=== PATIENT | male | born 1980 | race Caucasian/White ===

== ENCOUNTER 2017-11-08 17:25 | Emergency (ER) | payer SELFPAY ==
[2017-11-08] MEDS ORDERED: NA CHLORIDE 0.9% 1,000 ML ONE (17:38)
[2017-11-08] MEDS ORDERED: ONDANSETRON 4 MG/2 ML VIAL ONE (17:39)
[2017-11-08] MEDS ORDERED: PHENYTOIN Inj 1,000 MG in NA CHLORIDE 0.9% 100 ML IV STA (17:41)
[2017-11-08] MEDS ORDERED: levETIRAcetam 1,000 MG in NA CHLORIDE 0.9% 100 ML IV ONE (17:45)
[2017-11-08 17:55] LABS: Absolute Lymphocytes (CBC) 1.9 K/uL (0.7-4.9); Absolute Monocytes 0.7 K/uL (0.1-1.3); Absolute Neutrophil 11.7 K/uL (1.8-8.0); Basophils % 0.7 % (0-1.3); Eosinophils % 0.2 % (0-4.4); Lymphocytes % 13.2 % (15.3-44.8); MCH 28.3 pg (27.0-35.0); MCV 84.3 fL (80-100); MPV 7.6 fL (7.6-11.3); Monocytes % 4.9 % (3.3-12.3); RBC Red Blood Cell Count 4.98 M/uL (4.33-5.43)
--- NOTE | 2017-11-08 17:56 | RAD REPORT ---
EXAM DESCRIPTION: CT - Head Brain Wo Cont - 11/08/2017 5:47 pm CLINICAL HISTORY: Seizure COMPARISON: None. TECHNIQUE: All CT scans are performed using dose optimization technique as appropriate and may inclu de automated exposure control or mA/KV adjustment according to patient size. FINDINGS: No intracranial hemorrhage, hydrocephalus or extra-axial fluid collection.No areas of brai n edema or evidence of midline shift. The paranasal sinuses and mastoids are clear. The calvarium is intact. IMPRESSION: No acute intracranial abnormality.
[2017-11-08 18:09] LABS: Bicarbonate 23 mEq/L (21-31); Glucose Level 116 mg/dL (65-120); Potassium 3.4 mEq/L (3.6-5.0); Sodium Level 138 mEq/L (135-145)
[2017-11-08 18:10] LABS: BUN Blood Urea Nitrogen 11 mg/dL (6-20); Glomerular Filtration Rate > 90 mL/min (=/>90)
[2017-11-08] MEDS ORDERED: LORazepam 2 MG/ML VIAL ONE (18:27)
[2017-11-08] MEDS ORDERED: POTASSIUM CL SA 10 MEQ TAB PO ONE (19:37)
--- NOTE | 2017-11-08 19:40 | EDPHYS ---
Physician Documentation [facility] Name: Yonatan Ramos Age: 37 yrs Sex: Male : 1980 Arrival Date: 11/08/2017 Time: 17:30 Bed 3 Private MD: ED Physician Hemal Montgomery HPI: 11/08 17:43 This 37 yrs old Male presents to ER via Unassigned with complaints of Seizure.rn 17:43 The patient presents with a history of multiple seizures, a total of 2. Seizure onset: rn today. Associated injury: Head/face:. The patient has experienced similar episodes in the past. Reports hx of epilepsy, per patient, has seizures several times/week, was in longterm for about an hour, cellmate noticed he fell and had a seizure, reports left head pain from fall, generalized seizure, + nausea, had another brief seizure upon arrival to ER. Patient states gets paid on Tuesday, has been out of his dilantin and keppra for about a week. . Historical: - Allergies: 17:49 No Known Allergies; sv - Home Meds: 17:49 Dilantin Oral 300 mg twice a day [Active]; sv - PMHx: 17:49 Seizures; sv - Immunization history:: Adult Immunizations unknown. - Family history:: not pertinent. - Social history:: Smoking status: unknown. - Hospitalizations: : No recent hospitalization is reported. ROS: 17:43 Constitutional: Negative for fever, chills, and weight loss, Eyes: Negative for injury, rn pain, redness, and discharge, Neck: Negative for injury, pain, and swelling, Cardiovascular: Negative for chest pain, palpitations, and edema, Respiratory: Negative for shortness of breath, cough, wheezing, and pleuritic chest pain, Abdomen/GI: Negative for abdominal pain, diarrhea, and constipation, Back: Negative for injury and pain, MS/Extremity: Negative for injury and deformity, Skin: Negative for injury, rash, and discoloration, Neuro: Negative for weakness, numbness, tingling Exam: 17:43 Constitutional: This is a well developed, well nourished patient who is awake, alert, rn and in no acute distress. Head/Face: Normocephalic, mild tenderness left temporo-parietal region, no depression or laceration Eyes: Pupils equal round and reactive to light, extra-ocular motions intact. Lids and lashes normal. Conjunctiva and sclera are non-icteric and not injected. Cornea within normal limits. Periorbital areas with no swelling, redness, or edema. Neck: Trachea midline, no thyromegaly or masses palpated, and no cervical lymphadenopathy. Supple, full range of motion without nuchal rigidity, or vertebral point tenderness. No Meningismus. Cardiovascular: Regular rate and rhythm with a normal S1 and S2. No gallops, murmurs, or rubs. Normal PMI, no JVD. No pulse deficits. Respiratory: Lungs have equal breath sounds bilaterally, clear to auscultation and percussion. No rales, rhonchi or wheezes noted. No increased work of breathing, no retractions or nasal flaring. Abdomen/GI: Soft, non-tender, with normal bowel sounds. No distension or tympany. No guarding or rebound. No evidence of tenderness throughout. MS/ Extremity: Pulses equal, no cyanosis. Neurovascular intact. Full, normal range of motion. Equal circumference. Neuro: Awake and alert, GCS 15, oriented to person, place, time, and situation. Cranial nerves II-XII grossly intact. Motor strength 5/5 in all extremities. Sensory grossly intact. Cerebellar exam normal. Vital Signs: 17:48 BP 130 / 89; Pulse 102; Resp 22; Temp 98.7(O); Pulse Ox 96% on R/A; sv 18:10 BP 119 / 77; Pulse 93; Resp 18; Pulse Ox 97% ; sv 19:45 BP 116 / 81; Pulse 93; Resp 17 S; Pulse Ox 100% on R/A; jd3 [place] Coma Score: 18:11 Eye Response: spontaneous(4). Verbal Response: oriented(5). Motor Response: obeys sv commands(6). Total: 15. MDM: 17:31 Patient medically screened. rn 18:31 Differential diagnosis: seizure. Data reviewed: vital signs, nurses notes. ED course: rn Pt with normal ct head, had an episode here of contractions, did not respond to painful stimuli but blinked to ocular confrontation. . ED course: Dilantin has not finished, keppra has not been started, will observe and anticipate dc as patient with frequent seizures and admits to not taking meds. . 11/08 17:32 Order name: CBC with Diff rn 11/08 17:32 Order name: Basic Metabolic Panel rn 11/08 17:32 Order name: CT Head Brain wo Cont; Complete Time: 18:06 rn 11/08 17:33 Order name: CBC with Automated Diff; Complete Time: 18:06 EDMS 11/08 17:33 Order name: Basic Metabolic Panel; Complete Time: 18:16 EDMS 11/08 17:32 Order name: IV Start; Complete Time: 17:36 rn 11/08 17:43 Order name: EKG; Complete Time: 17:44 rn 11/08 17:32 Order name: Glucose Level; Complete Time: 17:44 rn 11/08 17:43 Order name: EKG - Nurse/Tech; Complete Time: 17:53 rn Administered Medications: 17:25 Drug: Ativan 2 mg Route: IVP; Site: right antecubital; sv 17:45 Follow up: Response: No adverse reaction sv 17:40 Drug: Zofran 4 mg Route: IVP; Site: right antecubital; sv 17:53 Follow up: Response: No adverse reaction; Marked relief of symptoms; Nausea is decreasedsv 17:53 Drug: NS 0.9% 1000 ml Route: IV; Rate: 1000 ml; Site: right antecubital; sv 19:55 Follow up: Response: No adverse reaction; IV Status: Completed infusion; IV Intake: jd3 1000ml 18:00 Drug: Phenytoin 1 grams Route: IVPB; Site: right antecubital; sv 18:04 Follow up: Rate change 150 ml/hr; Informed Dr Montgomery pt started complaining of right sv sided anterior collarbone pain after the Phenytoin was started. Order to reduce rate. 18:54 Follow up: Response: No adverse reaction; IV Status: Completed infusion; IV Intake: sv 240ml 18:30 Drug: Ativan 2 mg Route: IVP; Site: right antecubital; sv 18:54 Follow up: Response: No adverse reaction sv 18:55 Drug: Keppra 1000 mg Route: IV; Rate: 1 calculated rate; Site: right antecubital; sv 19:55 Follow up: Response: No adverse reaction; IV Status: Completed infusion jd3 19:41 Drug: Potassium Chloride 40 mEq Route: PO; jd3 19:55 Follow up: Response: Medication administered at discharge. jd3 Point of Care Testing: Blood Glucose: 17:47 Blood Glucose: 96 mg/dL; sv Ranges: Critical Glucose Levels:Adult <50 mg/dl or >400 mg/dl <40 mg/dl or >180 mg/dl Disposition: 11/08/17 19:39 Discharged to Home. Impression: Epileptic seizures related to external causes, Patient's intentional underdosing of medication regimen due to financial hardship. - Condition is Stable. - Discharge Instructions: Medicine Refill at the Emergency Department, Seizure, Adult. - Prescriptions for Dilantin Kapseal 100 mg Oral Capsule - take 3 capsule by ORAL route every 12 hours; 60 capsule. - Medication Reconciliation Form, Thank You Letter, Antibiotic Education, Prescription Opioid Use form. - Follow up: Private Physician; When: 1 week; Reason: Recheck today's complaints, Continuance of care, Re-evaluation by your physician. Follow up: Emergency Department; When: As needed; Reason: Worsening of condition. Signatures: Dispatcher [employer] Kristen Estrada, RN Preethi Cordero, CARDIAC CATH LAB RADIOLOGY TECHNOLOGIST-C CARDIAC CATH LAB RADIOLOGY TECHNOLOGIST-Csnw Hemal Montgomery MD MD rn Davies, Jonathon, RN RN jdavey
--- NOTE | 2017-11-08 19:40 | ER ---
Nurse's Notes [facility] Name: Yonatan Rmaos Age: 37 yrs Sex: Male : 1980 Arrival Date: 11/08/2017 Time: 17:30 Bed 3 Private MD: Diagnosis: Epileptic seizures related to external causes;Patient's intentional underdosing of medication regimen due to financial hardship Presentation: 11/08 17:25 Presenting complaint: EMS states: Pt had a witnessed seizure in correction by a cell mate. On sv EMS arrival pt had no seizure like activity. Pt has been out of his seizure medication for about 4 days. On arrival to ER, pt started having a seizure. Transition of care: correction. Onset of symptoms was November 08, 2017. Care prior to arrival: Medication(s) given: zofran 4 mg, IV initiated. 20 GA, in the right antecubital area. 17:25 Method Of Arrival: EMS: [facility] sv 17:25 Acuity: ANDREAS 2 sv Triage Assessment: 17:25 General: Appears uncomfortable, Behavior is Pt actively seizing. Pain: Unable to use sv pain scale. FLACC scale score is 0 out of 10. Neuro: Level of Consciousness is seizing. Seizure activity noted at this time. Seizure lasted approximately 1 minutes. Respiratory: Respiratory effort is even, labored, Respiratory pattern is tachypnea. Historical: - Allergies: 17:49 No Known Allergies; sv - Home Meds: 17:49 Dilantin Oral 300 mg twice a day [Active]; sv - PMHx: 17:49 Seizures; sv - Immunization history:: Adult Immunizations unknown. - Family history:: not pertinent. - Social history:: Smoking status: unknown. - Hospitalizations: : No recent hospitalization is reported. Screenin:40 Abuse screen: Denies threats or abuse. Denies injuries from another. Nutritional sv screening: No deficits noted. Tuberculosis screening: No symptoms or risk factors identified. Fall Risk No fall in past 12 months (0 pts). Secondary diagnosis (15 points) seizures, IV access (20 points). Ambulatory Aid- None/Bed Rest/Nurse Assist (0 pts). Gait- Normal/Bed Rest/Wheelchair (0 pts) Mental Status- Oriented to own ability (0 pts). Total [place] Fall Scale indicates Low Risk Score (25-44 pts). Fall prevention measures have been instituted. Side Rails Up X 2 Placed close to Nursing Station Frequent Obs/Assesments occuring As available Patient and Family Educated on Fall Prevention Program and strategies. Assessment: 18:10 General: Appears in no apparent distress. comfortable, well developed, Behavior is sv calm, cooperative, appropriate for age. Neuro: Level of Consciousness is awake, alert, obeys commands, Oriented to person, place, time, situation, Moves all extremities. Full function Speech is normal. Cardiovascular: Patient's skin is warm and dry. Respiratory: Respiratory effort is even, unlabored, Respiratory pattern is regular, symmetrical. Derm: Skin is pink, warm \T\ dry. 18:28 Neuro: Seizure activity noted at this time. Type of seizure: partial seizure. Seizure sv lasted approximately [address] Montgomery at the bedside. 18:45 Reassessment: Patient appears in no apparent distress at this time. Patient and/or sv family updated on plan of care and expected duration. Pain level reassessed. Patient is alert, oriented x 3, equal unlabored respirations, skin warm/dry/pink. 19:41 Reassessment: Patient appears in no apparent distress at this time. Patient and/or ak1 family updated on plan of care and expected duration. Pain level reassessed. Patient is alert, oriented x 3, equal unlabored respirations, skin warm/dry/pink. no seizure noted while under my care. pt A\T\OX4. [place] officer at bedside. will continue to monitor. 19:42 Reassessment: Patient appears in no apparent distress at this time. Patient and/or jd3 family updated on plan of care and expected duration. Pain level reassessed. Patient is alert, oriented x 3, equal unlabored respirations, skin warm/dry/pink. Patient states feeling better. 19:54 Reassessment: Patient appears in no apparent distress at this time. Patient and/or jd3 family updated on plan of care and expected duration. Pain level reassessed. Patient is alert, oriented x 3, equal unlabored respirations, skin warm/dry/pink. pt reported understanding of discharge instructions, pt assisted by wheelchair with police to exit. Vital Signs: 17:48 BP 130 / 89; Pulse 102; Resp 22; Temp 98.7(O); Pulse Ox 96% on R/A; sv 18:10 BP 119 / 77; Pulse 93; Resp 18; Pulse Ox 97% ; sv 19:45 BP 116 / 81; Pulse 93; Resp 17 S; Pulse Ox 100% on R/A; jd3 [place] Coma Score: 18:11 Eye Response: spontaneous(4). Verbal Response: oriented(5). Motor Response: obeys sv commands(6). Total: 15. ED Course: 17:30 Patient arrived in ED. iw 17:30 Patient has correct armband on for positive identification. Bed in low position. Call sv light in reach. Side rails up X2. Seizure precautions initiated. [place] [employer] at bedside. Pulse ox on. NIBP on. Head of bed elevated. 17:31 Hemal Montgomery MD is Attending Physician. rn 17:36 Kristen Hanson RN is Primary Nurse. sv 17:[address] sw 17:45 CBC with Diff Sent. sv 17:45 Basic Metabolic Panel Sent. sv 17:46 CT Head Brain wo Cont In Process Unspecified. EDMS 17:47 Triage completed. sv 17:54 CT completed. Patient tolerated procedure well. Patient moved back from CT. sw 17:57 EKG done, by support service tech. reviewed by Hemal Montgomery MD. at1 18:11 Arm band placed on right wrist. sv 18:37 Preethi Kelley FNP-C is [facility]. snw 19:03 Report given to Nestor DAHL. sv 19:05 Primary Nurse role handed off by Kristen Hanson RN sv 19:41 Nestor Galvan RN is Primary Nurse. jd3 19:42 No provider procedures requiring assistance completed. jd3 19:53 IV discontinued, intact, bleeding controlled, No redness/swelling at site. Pressure jd3 dressing applied. Administered Medications: 17:25 Drug: Ativan 2 mg Route: IVP; Site: right antecubital; sv 17:45 Follow up: Response: No adverse reaction sv 17:40 Drug: Zofran 4 mg Route: IVP; Site: right antecubital; sv 17:53 Follow up: Response: No adverse reaction; Marked relief of symptoms; Nausea is decreasedsv 17:53 Drug: NS 0.9% 1000 ml Route: IV; Rate: 1000 ml; Site: right antecubital; sv 19:55 Follow up: Response: No adverse reaction; IV Status: Completed infusion; IV Intake: jd3 1000ml 18:00 Drug: Phenytoin 1 grams Route: IVPB; Site: right antecubital; sv 18:04 Follow up: Rate change 150 ml/hr; Informed Dr Montgomery pt started complaining of right sv sided anterior collarbone pain after the Phenytoin was started. Order to reduce rate. 18:54 Follow up: Response: No adverse reaction; IV Status: Completed infusion; IV Intake: sv 240ml 18:30 Drug: Ativan 2 mg Route: IVP; Site: right antecubital; sv 18:54 Follow up: Response: No adverse reaction sv 18:55 Drug: Keppra 1000 mg Route: IV; Rate: 1 calculated rate; Site: right antecubital; sv 19:55 Follow up: Response: No adverse reaction; IV Status: Completed infusion jd3 19:41 Drug: Potassium Chloride 40 mEq Route: PO; jd3 19:55 Follow up: Response: Medication administered at discharge. jd3 Point of Care Testing: Blood Glucose: 17:47 Blood Glucose: 96 mg/dL; sv Ranges: Intake: 18:54 IV: 240ml; Total: 240ml. sv 19:55 IV: 1000ml; Total: 1240ml. jd3 Outcome: 19:39 Discharge ordered by . snw 19:53 Discharged to Law Enforcement jd3 19:53 Condition: stable 19:53 Discharge instructions given to patient, police, Instructed on discharge instructions, follow up and referral plans. medication usage, Demonstrated understanding of instructions, follow-up care, medications, Prescriptions given X 1. 19:56 Patient left the ED. jd3 Signatures: Dispatcher [employer] EDKristen Hernandez, RN RN Preethi Ryan, WET FINISHER WOOL-C WET FINISHER WOOL-Csnw Yoko Rodriguez, RN Hemal Hooks MD MD rn gonzales, Amanda, casino cashier manager EKG Tat1 Jonna Ingram RN RN ak1 Pratima Galan Jonathon, RN RN jd3
--- NOTE | 2017-11-09 07:59 | EKG ---
Test Date: 2017-11-08 Test Time: 17:51:48 Underground Truck Operator: RUBIN MEASUREMENT RESULTS: Intervals: Rate: 95 FL: 128 QRSD: 82 QT: 324 QTc: 407 [place]: P: 60 FL: 128 QRS: 71 T: 34 INTERPRETIVE STATEMENTS: Normal sinus rhythm Normal ECG Compared to ECG 02/14/2017 15:02:28 No significant changes Electronically Signed On 11-09-17 07:58:34 CDT by Mahad Whitney
== END 2017-11-08 19:56 | disposition home or self-care (01) ==
LOC: ER 17:25
DX: G40.509 Epileptic seizures related to external causes, not intractable, without status epilepticus (principal); Z91.120 Patient's intentional underdosing of medication regimen due to financial hardship; W18.39XA Other fall on same level, initial encounter; Y93.9 Activity, unspecified; Y92.143 Cell of prison as the place of occurrence of the external cause
CPT/HCPCS: 36415; 70450; 80048; 82962; 85025; 93005; 96365; 96367; 96375; 99285; J1165; J1953; J2405; J7030

== ENCOUNTER 2017-11-09 07:33 | Observation (INO) | payer SELFPAY ==
[~2017-11-09 07:33] MED LIST: LORazepam 2 MG/ML VIAL ONE
--- NOTE | 2017-11-09 08:20 | RAD REPORT ---
EXAM DESCRIPTION: CT - Head Brain Wo Cont - 11/09/2017 8:12 am CLINICAL HISTORY: Seizure COMPARISON: 11/08/2017 TECHNIQUE: All CT scans are performed using dose optimization technique as appropriate and may inclu de automated exposure control or mA/KV adjustment according to patient size. FINDINGS: No intracranial hemorrhage, hydrocephalus or extra-axial fluid collection.No areas of brai n edema or evidence of midline shift. The paranasal sinuses and mastoids are clear. The calvarium is intact. IMPRESSION: No acute intracranial abnormality.
[2017-11-09 08:26] LABS: Protime INR 1.06
[2017-11-09 08:27] LABS: Absolute Lymphocytes (CBC) 2.9 K/uL (0.7-4.9); Absolute Monocytes 0.9 K/uL (0.1-1.3); Basophils % 0.4 % (0-1.3); Eosinophils % 1.6 % (0-4.4); Hematocrit 42.6 % (39.6-49.0); Lymphocytes % 26.4 % (15.3-44.8); MCH 28.8 pg (27.0-35.0); MCV 85.2 fL (80-100); MPV 7.5 fL (7.6-11.3); Monocytes % 7.9 % (3.3-12.3)
[2017-11-09] MEDS ORDERED: LORazepam 2 MG/ML VIAL ONE (08:29)
[2017-11-09 08:32] LABS: Bicarbonate 23 mEq/L (21-31); Glucose Level 112 mg/dL (65-120); Potassium 3.8 mEq/L (3.6-5.0); Sodium Level 138 mEq/L (135-145)
[2017-11-09 08:38] LABS: ALT/SGPT 19 IU/L (10-60); AST/SGOT 22 IU/L (10-42); Albumin 4.4 g/dL (3.2-5.5); Alkaline Phosphatase 78 IU/L (42-121); BUN Blood Urea Nitrogen 10 mg/dL (6-20); Bilirubin Direct 0.1 mg/dL (0-0.2); Bilirubin Total 0.8 mg/dL (0.3-1.2); Creatine Phosphokinase 93 IU/L (22-269); Magnesium 1.9 mg/dL (1.8-2.5); Phenytoin (Dilantin) Level 9.9 ug/ml (10.0-20.0); Protein, Total 7.4 g/dL (6.0-8.3)
--- NOTE | 2017-11-09 09:52 | EKG ---
Test Date: 2017-11-09 Test Time: 08:14:55 Playground Supervisor: SAI MEASUREMENT RESULTS: Intervals: Rate: 65 MS: 130 QRSD: 94 QT: 376 QTc: 391 [place]: P: 69 MS: 130 QRS: 81 T: 48 INTERPRETIVE STATEMENTS: Normal sinus rhythm Normal ECG Compared to ECG 11/08/2017 17:51:48 No significant changes Electronically Signed On 11-09-17 09:51:52 CDT by Mahad Whitney
--- NOTE | 2017-11-09 10:26 | EDPHYS ---
Physician Documentation [facility] Name: Ynoatan Ramos Age: 37 yrs Sex: Male : 1980 Arrival Date: 11/09/2017 Time: 07:35 Bed 3 Private MD: ED Physician Kaushik Menchaca HPI: 11/09 08:05 This 37 yrs old Male presents to ER via EMS with complaints of Seizure. 08:05 The patient presents with a history of multiple seizures, a total of 3, the episode(s) wa was witnessed, by EMS personnel, by police. Character of seizure(s): Loss of consciousness: the patient experienced loss of consciousness, brief, Motor activity: generalized, shaking all over. Seizure onset: this morning. Context: the seizure(s) was witnessed, by EMS personnel, by police, occurred mcfp, occurred while the patient was at rest, Contributing factors: has not taken his keppra and dilantin for 4 days. seen here yesterday for same. loaded with keppra and dilantin. EMS gave ativan in route for SZ. pt able to talk to me at bedside and answers questions appropriately. . Seizure Hx: h/o epilepsy. takes dilantin and keppra. Associated injury: The patient did not suffer any apparent associated injury. EMS care: Ativan, IV, with resolution of the seizure, with marked improvement. Current symptoms: mild drowsiness. The patient has experienced similar episodes in the past. The patient has not recently seen a physician. Historical: - Allergies: 07:38 No Known Allergies; sv - Home Meds: 07:38 Dilantin Oral 300 mg twice a day [Active]; Keppra Oral [Active]; sv - PMHx: 07:38 Seizures; sv - Immunization history:: Adult Immunizations up to date. - Social history:: Smoking status: unknown. ROS: 08:10 Constitutional: Negative for fever, chills, and weight loss, Eyes: Negative for injury, wa pain, redness, and discharge, ENT: Negative for injury, pain, and discharge, Neck: Negative for injury, pain, and swelling, Cardiovascular: Negative for chest pain, palpitations, and edema, Respiratory: Negative for shortness of breath, cough, wheezing, and pleuritic chest pain, Abdomen/GI: Negative for abdominal pain, nausea, vomiting, diarrhea, and constipation, Back: Negative for injury and pain, : Negative for injury, bleeding, discharge, and swelling, MS/Extremity: Negative for injury and deformity, Skin: Negative for injury, rash, and discoloration. 08:10 Neuro: Positive for seizure activity, Negative for altered mental status, dizziness, headache. 08:10 All other systems are negative. Exam: 08:10 Constitutional: This is a well developed, well nourished patient who is awake, alert, wa and in no acute distress. Head/Face: Normocephalic, atraumatic. Eyes: Pupils equal round and reactive to light, extra-ocular motions intact. Lids and lashes normal. Conjunctiva and sclera are non-icteric and not injected. Cornea within normal limits. Periorbital areas with no swelling, redness, or edema. ENT: Nares patent. No nasal discharge, no septal abnormalities noted. Tympanic membranes are normal and external auditory canals are clear. Oropharynx with no redness, swelling, or masses, exudates, or evidence of obstruction, uvula midline. Mucous membranes moist. Neck: Trachea midline, no thyromegaly or masses palpated, and no cervical lymphadenopathy. Supple, full range of motion without nuchal rigidity, or vertebral point tenderness. No Meningismus. Cardiovascular: Regular rate and rhythm with a normal S1 and S2. No gallops, murmurs, or rubs. Normal PMI, no JVD. No pulse deficits. Respiratory: Lungs have equal breath sounds bilaterally, clear to auscultation and percussion. No rales, rhonchi or wheezes noted. No increased work of breathing, no retractions or nasal flaring. Abdomen/GI: Soft, non-tender, with normal bowel sounds. No distension or tympany. No guarding or rebound. No evidence of tenderness throughout. Back: No spinal tenderness. No costovertebral tenderness. Full range of motion. Skin: Warm, dry with normal turgor. Normal color with no rashes, no lesions, and no evidence of cellulitis. MS/ Extremity: Pulses equal, no cyanosis. Neurovascular intact. Full, normal range of motion. 08:10 Neuro: Orientation: is normal, Mentation: is normal, Cranial nerves: grossly normal, Motor: is normal, seizure activity, none at time of exam. Vital Signs: 07:39 BP 107 / 71; Pulse 76; Resp 18; Temp 98.5; Pulse Ox 100% ; sv 08:33 BP 121 / 64; Pulse 65; Resp 19; Pulse Ox 99% on 2 lpm NC; sv 09:34 BP 119 / 72; Pulse 68; Resp 16; Pulse Ox 98% on 2 lpm NC; sv 10:42 BP 112 / 72; Pulse 60; Resp 18; Pulse Ox 99% on 2 lpm NC; sv 11:30 BP 111 / 65; Pulse 57; Resp 18; Pulse Ox 99% on R/A; sv 12:17 BP 104 / 73; Pulse 72; Resp 18; Pulse Ox 96% on R/A; sv [place] Coma Score: 07:30 Eye Response: spontaneous(4). Verbal Response: oriented(5). Motor Response: obeys sv commands(6). Total: 15. MDM: 07:45 Patient medically screened. id 08:12 Differential diagnosis: SZ. repeated. will check levels of dilantin. will check labs. . id 10:19 Data reviewed: vital signs, nurses notes. Test interpretation: by ED physician or id midlevel provider: Head CT: no acute process. labs noted wnl. EKG:HR: 65. noted wnl.. Response to treatment: the patient's symptoms have markedly improved after treatment. Physician consultation: Nuria Bee MD was called at 10:24. Admission orders: after a detailed discussion of the patient's condition and case, the admit orders are written by me. ED course: noted generalized sz x 2 in ED that required ativan. pt resting comfortably at this time. will give keppra. will admit for obs and neuro eval. 11/09 07:52 Order name: UDS 11/09 07:52 Order name: Basic Metabolic Panel; Complete Time: 10:11/09 07:52 Order name: CBC with Diff; Complete Time: 10:11/09 07:52 Order name: CPK; Complete Time: 10:11/09 07:52 Order name: Hepatic Function; Complete Time: 10:11/09 07:52 Order name: Magnesium; Complete Time: 10:11/09 07:52 Order name: CT Head Brain wo Cont; Complete Time: 10:11/09 07:52 Order name: Protime (+inr); Complete Time: 10:05 11/09 07:52 Order name: EKG; Complete Time: 07:52 11/09 07:52 Order name: Cardiac monitoring; Complete Time: 08:14 11/09 07:52 Order name: EKG - Nurse/Tech; Complete Time: 08:14 11/09 07:52 Order name: Dilantin; Complete Time: 10:05 11/09 07:52 Order name: IV Saline Lock; Complete Time: 08:14 11/09 07:52 Order name: Labs collected and sent; Complete Time: 08:14 11/09 07:52 Order name: NPO; Complete Time: 08:11/09 07:52 Order name: O2 Per Protocol; Complete Time: 07:55 11/09 07:52 Order name: O2 Sat Monitoring; Complete Time: 07:55 id Administered Medications: 08:31 Drug: Ativan 2 mg Route: IVP; Site: left forearm; sv 08:45 Follow up: Response: No adverse reaction sv 10:41 Drug: Keppra 1000 mg Route: IV; Rate: bolus; Site: left forearm; sv 10:57 Follow up: Response: No adverse reaction; IV Status: Completed infusion; IV Intake: sv 100ml Disposition: 11/09/17 10:25 Hospitalization ordered by Nuria Bee for Observation. Preliminary diagnosis is Acute multiple episodes of seizures. - Bed requested for Telemetry/MedSurg (observation). - Status is Observation. sv - Condition is Stable. - Problem is an acute exacerbation. - Symptoms have improved. UTI on Admission? No Signatures: Dispatcher [employer] Kristen Estrada, RN RN Nyla Guajardo RN RN Kaushik Menchaca MD MD id
--- NOTE | 2017-11-09 10:26 | ER ---
Nurse's Notes [facility] Name: Yonatan Ramos Age: 37 yrs Sex: Male : 1980 Arrival Date: 11/09/2017 Time: 07:35 Bed 3 Private MD: Diagnosis: Acute multiple episodes of seizures Presentation: 11/09 07:30 Presenting complaint: EMS states: 2 witnessed seizures while in residential. No head injury. sv On EMS arrival pt was post ictal. Pt had another seizure en route. Pt given Ativan 2mg IM. BS-103 Bp 117/80 HR 85 100% RA, 20G R AC. Transition of care: residential. Onset of symptoms was November 09, 2017. Care prior to arrival: IV initiated. 20 GA, in the right antecubital area, Glucose check: 103. 07:30 Method Of Arrival: EMS: [facility] sv 07:30 Acuity: ANDREAS 2 sv Triage Assessment: 07:30 General: Appears in no apparent distress. comfortable, well developed, Behavior is sv calm, cooperative. Pain: Denies pain. EENT: No signs and/or symptoms were reported regarding the EENT system. Neuro: Level of Consciousness is awake, alert, obeys commands, Oriented to person, place, time, situation, Moves all extremities. Speech is normal. Cardiovascular: Patient's skin is warm and dry. Respiratory: Respiratory effort is even, unlabored, Respiratory pattern is regular, symmetrical. Derm: Skin is pink, warm \T\ dry. Historical: - Allergies: 07:38 No Known Allergies; sv - Home Meds: 07:38 Dilantin Oral 300 mg twice a day [Active]; Keppra Oral [Active]; sv - PMHx: 07:38 Seizures; sv - Immunization history:: Adult Immunizations up to date. - Social history:: Smoking status: unknown. Screenin:19 Abuse screen: Denies threats or abuse. Denies injuries from another. Nutritional sv screening: No deficits noted. Tuberculosis screening: No symptoms or risk factors identified. Fall Risk None identified. Assessment: 07:50 Reassessment: Pt having seizure like activity, informed Dr Menchaca. Ammonia capsule sv placed in nostrils, pt woke up coughing. 08:20 Reassessment: See triage assessment. sv 09:00 Reassessment: Patient appears in no apparent distress at this time. No changes from sv previously documented assessment. Patient and/or family updated on plan of care and expected duration. Pain level reassessed. Patient is alert, oriented x 3, equal unlabored respirations, skin warm/dry/pink. 10:41 Reassessment: Patient appears in no apparent distress at this time. No changes from sv previously documented assessment. Patient and/or family updated on plan of care and expected duration. Pain level reassessed. Patient is alert, oriented x 3, equal unlabored respirations, skin warm/dry/pink. Vital Signs: 07:39 BP 107 / 71; Pulse 76; Resp 18; Temp 98.5; Pulse Ox 100% ; sv 08:33 BP 121 / 64; Pulse 65; Resp 19; Pulse Ox 99% on 2 lpm NC; sv 09:34 BP 119 / 72; Pulse 68; Resp 16; Pulse Ox 98% on 2 lpm NC; sv 10:42 BP 112 / 72; Pulse 60; Resp 18; Pulse Ox 99% on 2 lpm NC; sv 11:30 BP 111 / 65; Pulse 57; Resp 18; Pulse Ox 99% on R/A; sv 12:17 BP 104 / 73; Pulse 72; Resp 18; Pulse Ox 96% on R/A; sv Edilberto Coma Score: 07:30 Eye Response: spontaneous(4). Verbal Response: oriented(5). Motor Response: obeys sv commands(6). Total: 15. ED Course: 07:30 Patient has correct armband on for positive identification. Bed in low position. Call sv light in reach. Side rails up X2. Seizure precautions initiated. security monitor on. Pulse ox on. NIBP on. 07:35 Patient arrived in ED. sv 07:35 Kristen Hanson, RN is Primary Nurse. sv 07:38 Triage completed. sv 07:45 Kaushik Menchaca MD is Attending Physician. wa 07:50 Arm band placed on right wrist. sv 07:54 Initial lab(s) drawn, by me. Inserted saline lock: 22 gauge in left forearm, using jb1 aseptic technique. Blood collected. 08:13 CT Head Brain wo Cont In Process Unspecified. EDMS 08:25 EKG done, by unit aide tech. reviewed by Kaushik Menchaca MD. tc 10:24 Nuria Bee MD is Hospitalizing Provider. wa 10:57 Awaiting bed assignment. sv 12:03 No provider procedures requiring assistance completed. Patient admitted, IV remains in sv place. intact. Administered Medications: 08:31 Drug: Ativan 2 mg Route: IVP; Site: left forearm; sv 08:45 Follow up: Response: No adverse reaction sv 10:41 Drug: Keppra 1000 mg Route: IV; Rate: bolus; Site: left forearm; sv 10:57 Follow up: Response: No adverse reaction; IV Status: Completed infusion; IV Intake: sv 100ml Intake: 10:57 IV: 100ml; Total: 100ml. sv Outcome: 10:25 Decision to Hospitalize by Provider. wa 12:03 Admitted to Tele accompanied by tech, via stretcher, room 228, with chart, Report sv called to Geeta DAHL 12:03 Condition: stable 12:03 Instructed on the need for admit. 12:31 Patient left the ED. sv Signatures: Dispatcher [employer] Juan Pablo Crandall Stephanie, RN RN Nicky Walton, bulb tester EKG Ttc Kaushik Menchaca MD MD ct
[2017-11-09] MEDS ORDERED: levETIRAcetam 1,000 MG in NA CHLORIDE 0.9% 100 ML IV ONE (10:30)
[2017-11-09] MEDS ORDERED: ONDANSETRON 4 MG (ODT) TAB PO PRN (11:07)
[2017-11-09] MEDS ORDERED: ACETAMINOPHEN 500 MG TAB PO PRN (11:07)
--- NOTE | 2017-11-09 11:59 | P.HP ---
Certification for Inpatient Patient admitted to: Observation With expected LOS: <2 Midnights Patient will require the following post-hospital care: None Practitioner: I am a practitioner with admitting privileges, knowledge of patient current condition, hospital course, and medical plan of care. Services: Services provided to patient in accordance with Admission requirements found in Title 42 Section 412.3 of the Code of Federal Regulations Patient History Date of Service: 11/09/17 Primary Care Provider: None Reason for admission: Seizures History of Present Illness: This is a 37-year-old male with significant past medical history of seizures with noncompliance with medication and presented to the ED after having 3 episodes of seizures at the snf. Patient was seen here in the ER yesterday for similar complaints and was restarted back on home medication however has not taken the medications and was having another episode of seizures in snf and thus was brought back to the ER. Patient stated that he had some loss of consciousness as well along with the seizures and does need to get a further checked out here in the hospital. Patient was given to mg of Ativan in route. When he arrived to the ER he was postictal. Allergies No Known Allergies Allergy (Unverified 11/14/12 19:27) - Past Medical/Surgical History Diabetic: No -: Seizures Review of Systems 10-point ROS is otherwise unremarkable Physical Examination - Physical Exam General: Alert, In no apparent distress, Oriented x3 HEENT: Atraumatic Neck: Supple Respiratory: Clear to auscultation bilaterally, Normal air movement Cardiovascular: Regular rate/rhythm, Normal S1 S2 Gastrointestinal: Normal bowel sounds, No tenderness Musculoskeletal: No tenderness Integumentary: No rashes Neurological: Normal speech, Normal strength at 5/5 x4 extr, Normal tone Lymphatics: No axilla or inguinal lymphadenopathy - Studies Laboratory Data (last 24 hrs) 11/09/17 07:55: PT 12.5, INR 1.06 11/09/17 07:55: WBC 11.0 H D, Hgb 14.4, Hct 42.6, Plt Count 292 11/09/17 07:55: Sodium 138, Potassium 3.8, BUN 10, Creatinine 0.85, Glucose 112 , Magnesium 1.9, Total Bilirubin 0.8, AST 22, ALT 19, Alkaline Phosphatase 78 Assessment and Plan - Problems (Diagnosis) (1) Seizures Current Visit: Yes Status: Acute Plan: Seizures noted in the Half-Way. H/o Noncomplaince -Loaded with Keppra in the ER -Restarted on Home dose 500mg BID -EEG pending -Neurology consulted. Awaiting reccs. -Possible DC in 24hrs if okay with Neurology Discharge Plan: Home Plan to discharge in: 24 Hours - Advance Directives Does patient have a Living Will: No Does patient have a Durable POA for Healthcare: No
[2017-11-09] MEDS ORDERED: NA CHLORIDE 0.9% 1,000 ML IV SCH (12:00)
[2017-11-09] MEDS ORDERED: PHENYTOIN ER 100 MG CAP PO SCH (21:00)
[2017-11-09] MEDS ORDERED: levETIRAcetam 500 MG in NA CHLORIDE 0.9% 100 ML IV SCH (21:00)
--- NOTE | 2017-11-10 00:15 | CON ---
Reason For Consultation: Consultation called because of multiple seizures. History Of Present Illness: Mr. Ramos is a 37-year-old patient who reports history of sei zures since childhood. He had been on Dilantin at one point and then Keppra most recently. He said he was out of medication for at least 3 days and [facility] when earlier today he had 2 witnessed seizures. Emergency Medical Services were contacted and the patient was found to be postictal on arrival. The patient said the seizures he was told were generalized, shaking, but d enies any loss of urine control. He did have another seizure while en route on EMS and received 2 mg of Ativan with blood sugars borderline at 130. Blood pressure is 117/80 and oxygen saturation 100%. He did have a CT scan on arrival, and the study showed no acute ischemic or hemorrhagic change and was a normal study. His blood work showed a mildly elevated white blood cell count of 11 and normal differential panel. Coagulation panel was normal. Chemistry is completely normal, and urine tox screen did show Dilantin level of 9.9, otherwise, negative drug screen. Since hospitalization and receiving Keppra in the em ergency room at dosage of 1 g loading, he was placed on 500 mg twice a day continued. He has also re ceived phenytoin 300 mg, which he reported 300 mg twice daily. He did have an EEG on admission, alth ough EEG is to be interpreted. Past Medical History: Seizures as indicated. Medications: Dilantin 300 mg twice daily and Keppra 500 mg twice daily. Allergies: NO KNOWN DRUG ALLERGIES. Social History: Denies any alcohol, tobacco or IV drug use. Family History: Noncontributory. Review of Systems: He denies any recent fevers, chills, nausea, vomiting, arthralgias, headaches, weight change, psychia tric complaints, or gastrointestinal complaints. No genitourinary complaints. Physical Examination: Vital Signs: Blood pressure 104/73, pulse 70, respiratory rate 18, temperature 98.3, oxygen saturati on 98% on room air, weight 200 pounds, and height 5 feet 6 inches. General: Mr. Ramos is resting in bed. He has had an EEG done. HEENT: Head is normocephalic, atraumatic. Sclerae anicteric. Oropharynx pink and moist. Neck: Supple. Chest: Clear. Heart: Regular. Extremities: Show no edema, cyanosis, or clubbing. Neurologic: He is alert and oriented to person, place, time, situation, has no expressive or recepti ve aphasias. Cranial nerves 2-12 are intact. Motor examination intact in the upper and lower extrem ities, 5/5 strength proximally and distally. Sensory exam intact to light touch, pinprick, and tempe rature in the arms or legs. Reflexes are 2+ in the upper and lower extremities, proximally and dista lly. Coordination intact in the upper and lower extremities. Assessment: Mr. Ramos is a 37-year-old patient with a reported long history of seizures, on Dilanti n and Keppra. He says he is out [facility] and he had multiple seizures while in intermediate. Plan: 1.Follow up EEG. 2.Continue Keppra 500 mg twice daily and also continue Dilantin 300 mg twice daily. 3.Follow up with his primary care physician and neurologist. The patient may be discharged back to intermediate. JOELLE Voice ID: [id number] Report ID: [id number]
[2017-11-10] MEDS ORDERED: levETIRAcetam 1,000 MG in NA CHLORIDE 0.9% 100 ML IV SCH (09:00)
--- NOTE | 2017-11-10 13:58 | EEG ---
CHART: [id number] TEST ID#: [id number] DATE OF STUDY: 11/09/2017 THE EEG WAS RECORDED PORTABLE IN THE PATIENT'S ROOM ON A 17 CHANNEL MACHINE. ELECTRODES WERE APPLIED IN THE USUAL MANNER USING THE INTERNATIONAL 10-20 SYSTEM. THE WAKING BACKGROUND RHYTHM IN THIS RECORD CONSISTS OF VERY WELL DEVELOPED AND WELL ORGANIZED WAVES OF 10.5 HZ., MAXIMAL IN THE POSTERIOR HEAD REGIONS WHICH ATTENUATE NORMALLY WITH EYE OPENING. EXCESS LOW-VOLTAGE 18-22 HZ ACTIVITY IS EXPRESSED IN ALL REGIONS. THERE ARE NO FOCAL OR LATERALIZING FEATURES. NO EPILEPTIFORM ACTIVITY APPEARS. SLEEP OCCURRED NATURALLY. IN ADDITION NORMAL SLEEP PATTERNS ARE PRESENT. HYPERVENTILATION WAS NOT PEFORMED. PHOTIC STIMULATION PRODUCED FAIR DRIVING BILATERALLY. IMPRESSION: THE PRESENCE OF EXCESS FAST ACTIVITY (BETA) INDICATES A MEDICATION EFFECT.
== END 2017-11-09 14:46 | disposition home or self-care (01) ==
LOC: ER 07:33 → ERHOLD 10:28 → 2ND 12:04
PROVIDERS: ADMIT Family Medicine; ATTEND Family Medicine
DX: G40.909 Epilepsy, unspecified, not intractable, without status epilepticus (principal)
CPT/HCPCS: 36415; 70450; 80048; 80076; 80185; 82550; 83735; 85025; 85610; 93005; 94760; 95819; 96365; 96375; 99285; G0378; J1953; J7030

== ENCOUNTER 2018-02-23 19:44 | Emergency (ER) | payer SELFPAY ==
[2018-02-23] MEDS ORDERED: LEVETIRACETAM 500 MG/5 ML VIAL IV ONE (20:02)
[2018-02-23] MEDS ORDERED: NA CHLORIDE 0.9% 100 ML IV ONE (20:02)
[2018-02-23 20:32] LABS: Protime INR 1.07
[2018-02-23 20:48] LABS: RBC Red Blood Cell Count 5.15 M/uL (4.33-5.43)
[2018-02-23 20:49] LABS: Absolute Monocytes 0.7 K/uL (0.1-1.3); Absolute Neutrophil 10.1 K/uL (1.8-8.0); Basophils % 0.6 % (0-1.3); Eosinophils % 0.3 % (0-4.4); Hematocrit 43.5 % (39.6-49.0); Lymphocytes % 15.6 % (15.3-44.8); MCH 28.8 pg (27.0-35.0); MCV 84.4 fL (80-100); MPV 7.2 fL (7.6-11.3); Monocytes % 5.7 % (3.3-12.3)
[2018-02-23 21:12] LABS: ALT/SGPT 31 U/L (12-78); AST/SGOT 18 U/L (15-37); Albumin 4.1 g/dL (3.4-5.0); Alcohol Serum/Plasma < 3 mg/dL (<3); Alkaline Phosphatase 84 U/L (45-117); BUN Blood Urea Nitrogen 9 mg/dL (7-18); Bicarbonate 26 mmol/L (21-32); Bilirubin Direct 0.1 mg/dL (0-0.2); Bilirubin Total 0.4 mg/dL (0.2-1.0); Glucose Level 102 mg/dL (74-106); Protein, Total 7.8 g/dL (6.4-8.2); Sodium Level 144 mmol/L (136-145)
[2018-02-23] MEDS ORDERED: LORazepam 2 MG/ML VIAL ONE (21:12)
[2018-02-23] MEDS ORDERED: ONDANSETRON 4 MG/2 ML VIAL ONE (21:26)
--- NOTE | 2018-02-23 21:32 | RAD REPORT ---
EXAM DESCRIPTION: CT - Head Brain Wo Cont - 02/23/2018 9:27 pm CLINICAL HISTORY: SEIZURE COMPARISON: Head Brain Wo Cont dated 11/09/2017; Head Brain Wo Cont dated 11/08/2017; Chest Pa And Lat (2 Views) dated 02/14/2017; Chest Single View dated 07/01/2016 TECHNIQUE: All CT scans are performed using dose optimization technique as appropriate and may inclu de automated exposure control or mA/KV adjustment according to patient size. FINDINGS: No intracranial hemorrhage, hydrocephalus or extra-axial fluid collection.No areas of brai n edema or evidence of midline shift. The paranasal sinuses and mastoids are clear. The calvarium is intact. IMPRESSION: No acute intracranial abnormality.
[2018-02-23 21:35] LABS: Urine Blood TRACE (NEG); Urine Glucose NEGATIVE (NEG); Urine Protein NEGATIVE (NEG); Urine Specific Gravity >1.030 (1.005-1.030); Urine pH 5.5 (5.0-7.0)
[2018-02-23] MEDS ORDERED: KETOROLAC 30 MG/ML INJ ONE (21:55)
[2018-02-23 22:23] LABS: Barbiturates NEGATIVE (NEGATIVE); Benzodiazepines NEGATIVE (NEGATIVE); Cocaine NEGATIVE (NEGATIVE); METHAMPHETAM NEGATIVE (NEGATIVE); Methadone NEGATIVE (NEGATIVE); Opiates NEGATIVE (NEGATIVE); Phencyclidine NEGATIVE (NEGATIVE); THC Cannibis POSITIVE (NEGATIVE)
--- NOTE | 2018-02-23 23:27 | ER ---
Nurse's Notes [facility] Name: Yonatan Ramos Age: 37 yrs Sex: Male : 1980 Arrival Date: 02/23/2018 Time: 19:46 Bed 19 Private MD: Kaushik Castano E Diagnosis: Epilepsy and recurrent seizures Presentation: 02/23 19:40 Presenting complaint: EMS states: that pt was in residential cell and being monitored. They fc were told by police that pt was being monitored and put himself on the ground. When they arrived by his side pt was twitching but talking and eyes blinking. Stated that it lasted approx 1.5 minutes. Transition of care: patient was not received from another setting of care. Onset of symptoms was February 23, 2018. Risk Assessment: Do you want to hurt yourself or someone else? Patient reports no desire to harm self or others. Initial Sepsis Screen: Does the patient meet any 2 criteria? HR > 90 bpm. Yes Does the patient have a suspected source of infection? No. Patient's initial sepsis screen is negative. Care prior to arrival: None. 19:40 Method Of Arrival: EMS: [facility] 19:40 Acuity: ANDREAS 3 fc Historical: - Allergies: 19:52 No Known Allergies; fc 19:52 No Known Allergies; aj1 - Home Meds: 19:52 Dilantin Oral 300 mg twice a day [Active]; Keppra Oral [Active]; aj1 - PMHx: 19:52 Seizures; Chronic pain; Back pain; Diabetes - IDDM; fc 19:52 nerve damage; aj1 - PSHx: 19:52 None; fc - Immunization history:: Last tetanus immunization: up to date. - Social history:: Smoking status: Patient/guardian denies using tobacco, the patient reports quitting approximately 8 years ago. - Ebola Screening: : Patient negative for fever greater than or equal to 101.5 degrees Fahrenheit, and additional compatible Ebola Virus Disease symptoms Patient denies exposure to infectious person Patient denies travel to an Ebola-affected area in the 21 days before illness onset. Screenin:47 Abuse screen: Denies threats or abuse. Denies injuries from another. Nutritional aj1 screening: No deficits noted. Tuberculosis screening: No symptoms or risk factors identified. 19:54 Fall Risk None identified. aj1 Assessment: 19:47 General: Appears in no apparent distress. uncomfortable, Behavior is cooperative, aj1 anxious. Pain: Complains of pain in face, scalp and neck Pain does not radiate. Pain currently is 10 out of 10 on a pain scale. Quality of pain is described as sharp, Pain began suddenly, Is continuous, Alleviated by nothing. Aggravated by movement. Neuro: Level of Consciousness is awake, alert, obeys commands, Oriented to person, place, time, situation, Moves all extremities. Full function Speech is normal, Facial symmetry appears normal, Pupils are PERRLA, Intact Reports dizziness, States that he has not taken his seizure medication in 10 days. Cardiovascular: Patient's skin is warm and dry. Respiratory: Airway is patent Respiratory effort is even, unlabored, Respiratory pattern is regular, symmetrical. GI: No signs and/or symptoms were reported involving the gastrointestinal system. : No signs and/or symptoms were reported regarding the genitourinary system. EENT: No signs and/or symptoms were reported regarding the EENT system. Derm: No signs and/or symptoms reported regarding the dermatologic system. Skin is pink, warm \\T\\ dry. normal. Musculoskeletal: No signs and/or symptoms reported regarding the musculoskeletal system. Circulation, motion, and sensation intact. Range of motion: intact in all extremities. 20:45 Reassessment: Patient appears in no apparent distress at this time. No changes from aj1 previously documented assessment. Patient and/or family updated on plan of care and expected duration. Pain level reassessed. Patient is alert, oriented x 3, equal unlabored respirations, skin warm/dry/pink. 21:00 Reassessment: Patient not responding to verbal or tactile stimulation. Ammonia capsule aj1 used, patient sits up immediately states "I hate when you guys do that! Why did you do that?!?!" Explained to patient that when he is not responding to verbal and tactile stimulation we have to check his LOC. Patient verbalized understanding. Patient currently alert and oriented x 3. Notified MARIO Mcfadden of patient event. 21:15 Reassessment: Patient not responding to verbal and tactile stimuli, hands are clenched aj1 and feet are rocking side to side. MARIO Mcfadden is at the bedside. Ammonia capsule held under patient's nose for approximately 30 seconds, patient does not respond. Order received from MARIO Mcfadden to give patient Ativan 2 mg IVP. Upon re-entering the room the patient is no longer tensed up. Patient looks at medication and states "What is that?" Explained to patient that we would be giving him Ativan for his seizure and the medication may make him feel drowsy. Patient verbalized understanding. Patient is currently alert and oriented x3. 21:30 Reassessment: Patient leaning over side rail, upon being asked what he is doing the aj1 patient states "I'm trying not to throw up on myself" Patient was giving a bag to vomit in. Notified MARIO Mcfadden of patient complaint of nausea. Order received. 22:41 Reassessment: Patient appears in no apparent distress at this time. Patient and/or jd3 family updated on plan of care and expected duration. Pain level reassessed. Patient is alert, oriented x 3, equal unlabored respirations, skin warm/dry/pink. pt resting in bed, awaiting disposition form provider. 02/24 00:17 Reassessment: Patient appears in no apparent distress at this time. Patient and/or jd3 family updated on plan of care and expected duration. Pain level reassessed. Patient is alert, oriented x 3, equal unlabored respirations, skin warm/dry/pink. pt reported understanding of need for transfer. Vital Signs: 02/23 19:40 Weight 90.72 kg (R); Height 5 ft. 6 in. (167.64 cm) (R); fc 19:47 BP 128 / 78; Pulse 92; Resp 20; Temp 98.3(O); Pulse Ox 98% on R/A; Pain 10/10; aj1 20:30 BP 158 / 86; Pulse 96; Resp 20; Pulse Ox 99% ; aj1 21:40 BP 141 / 62; Pulse 98; Resp 18; Pulse Ox 98% on R/A; aj1 22:40 BP 141 / 62; Pulse 92; Resp 18 S; Pulse Ox 98% on R/A; jd3 02/24 00:15 BP 140 / 80; Pulse 87; Resp 18 S; Pulse Ox 98% on R/A; jd3 02/23 19:40 Body Mass Index 32.28 (90.72 kg, 167.64 cm) fc Edilberto Coma Score: 02/23 19:40 Eye Response: spontaneous(4). Verbal Response: oriented(5). Motor Response: obeys fc commands(6). Total: 15. ED Course: 19:40 Arm band placed on Patient placed in an exam room, on a stretcher. fc 19:46 Patient arrived in ED. fc 19:46 Kaushik Castano MD is Private Physician. fc 19:47 Lulú Membreno, RN is Primary Nurse. aj1 19:47 Bipin Hill PA is PHCP. cp 19:47 Kaushik Menchaca MD is Attending Physician. cp 19:47 Patient has correct armband on for positive identification. Bed in low position. Call aj1 light in reach. Side rails up X 1. Seizure precautions initiated. 19:47 No provider procedures requiring assistance completed. aj1 19:50 Triage completed. fc 20:19 Inserted saline lock: 20 gauge in right antecubital area, using aseptic technique. tl2 Blood collected. 21:26 CT completed. Patient tolerated procedure well. Patient moved back from CT. nj 21:27 CT Head Brain wo Cont In Process Unspecified. EDMS 22:41 Primary Nurse role handed off by Lulú Membreno, NABILA jd3 22:41 Nestor Galvan RN is Primary Nurse. jd3 02/24 00:17 Patient transferred, IV remains in place. jd3 Administered Medications: 02/23 20:18 Drug: Keppra 1000 mg Route: IV; Rate: calculated rate; Site: right antecubital; tl2 23:34 Follow up: Response: No adverse reaction; IV Status: Completed infusion jd3 21:12 Drug: Ativan 2 mg Route: IVP; Site: right antecubital; aj1 21:37 Follow up: Response: No adverse reaction aj1 21:42 Drug: Zofran 4 mg Route: IVP; Site: right antecubital; aj1 21:58 Follow up: Response: No adverse reaction aj1 21:57 Drug: TORadol 30 mg Route: IVP; Site: right antecubital; aj1 21:58 Follow up: Response: No adverse reaction aj1 23:33 Drug: NS 0.9% 1000 ml Route: IV; Rate: 1 bolus; Site: right antecubital; jd3 02/24 00:21 Follow up: Response: No adverse reaction; IV Status: Completed infusion; IV Intake: jd3 1000ml 02/23 23:34 Drug: NS 0.9% 1000 ml Route: IV; Rate: 125 ml/hr; Site: right antecubital; jd3 02/24 00:22 Follow up: Response: No adverse reaction; IV Status: Infusion continued upon transfer jd3 Point of Care Testing: Blood Glucose: 02/23 19:48 Blood Glucose: 98 mg/dL; jd3 Ranges: Intake: 02/24 00:21 IV: 1000ml; Total: 1000ml. jd3 Outcome: 02/23 23:26 ER care complete, transfer ordered by . jarret 02/24 00:16 Transferred by ground EMS to [facility], [place] form completed. jd3 X-rays sent w/ patient. Note: report given to Alone RN at [facility] in [place]. Condition: stable Instructed on the need for transfer, Demonstrated understanding of instructions. 00:19 Patient left the ED. jd3 Signatures: Dispatcher [employer] EDLulú Gorman RN RN aj1 Sangeeta Alberts RN RN fc Bipin Hill, PA PA Nadine Roy, RN RN tl2 Hermilo Cox Jonathon RN RN jd3 Corrections: (The following items were deleted from the chart) 02/23 19:53 19:52 Home Meds: Keppra Oral 2 times per day; maría aj1
--- NOTE | 2018-02-23 23:27 | EDPHYS ---
Physician Documentation [facility] Name: Yonatan Ramos Age: 37 yrs Sex: Male : 1980 Arrival Date: 02/23/2018 Time: 19:46 Bed 19 Private MD: Kaushik Castano E ED Physician Kaushik Menchaca HPI: 02/23 19:58 This 37 yrs old Male presents to ER via EMS with complaints of Probable cp Seizure. 19:58 The patient presents after having a single isolated seizure, that lasted an unknown cp period of time, the episode(s) was witnessed, law enforcement. 19:58 Character of seizure(s): Motor activity: generalized, Incontinence: none. Seizure Hx: cp Seizure medications: Keppra, Dilantin. Associated injury: The patient did not suffer any apparent associated injury. EMS care: none. Current symptoms: Currently, the patient is not experiencing any symptoms, the patient feels back to baseline. 20:00 Patient reports he has not been on seizure medications for past 10 days. cp Historical: - Allergies: 19:52 No Known Allergies; fc 19:52 No Known Allergies; aj1 - Home Meds: 19:52 Dilantin Oral 300 mg twice a day [Active]; Keppra Oral [Active]; aj1 - PMHx: 19:52 Seizures; Chronic pain; Back pain; Diabetes - IDDM; fc 19:52 nerve damage; aj1 - PSHx: 19:52 None; fc - Immunization history:: Last tetanus immunization: up to date. - Social history:: Smoking status: Patient/guardian denies using tobacco, the patient reports quitting approximately 8 years ago. - Ebola Screening: : Patient negative for fever greater than or equal to 101.5 degrees Fahrenheit, and additional compatible Ebola Virus Disease symptoms Patient denies exposure to infectious person Patient denies travel to an Ebola-affected area in the 21 days before illness onset. ROS: 20:05 Constitutional: Negative for body aches, chills, fever, poor PO intake. cp 20:05 Eyes: Negative for injury, pain, redness, and discharge. cp 20:05 Cardiovascular: Negative for chest pain, edema, palpitations. 20:05 Respiratory: Negative for cough, shortness of breath, wheezing. 20:05 Abdomen/GI: Negative for vomiting, diarrhea, constipation. 20:05 : Negative for urinary symptoms. 20:05 Neuro: Positive for history of seizure, Negative for altered mental status. 20:05 All other systems are negative. Exam: 20:03 ECG was reviewed by the Attending Physician. cp 20:10 Constitutional: The patient appears in no acute distress, alert, awake, cp non-diaphoretic, non-toxic, well developed, well nourished. 20:10 Head/Face: Normocephalic, atraumatic. Eyes: Pupils equal round and reactive to light, cp extra-ocular motions intact. Lids and lashes normal. Conjunctiva and sclera are non-icteric and not injected. Cornea within normal limits. Periorbital areas with no swelling, redness, or edema. ENT: Nares patent. No nasal discharge, no septal abnormalities noted. Tympanic membranes are normal and external auditory canals are clear. Oropharynx with no redness, swelling, or masses, exudates, or evidence of obstruction, uvula midline. Mucous membranes moist. Neck: Trachea midline, no thyromegaly or masses palpated, and no cervical lymphadenopathy. Supple, full range of motion without nuchal rigidity, or vertebral point tenderness. No Meningismus. Chest/axilla: Normal chest wall appearance and motion. Nontender with no deformity. No lesions are appreciated. Cardiovascular: Regular rate and rhythm with a normal S1 and S2. No gallops, murmurs, or rubs. Normal PMI, no JVD. No pulse deficits. Respiratory: Lungs have equal breath sounds bilaterally, clear to auscultation and percussion. No rales, rhonchi or wheezes noted. No increased work of breathing, no retractions or nasal flaring. Abdomen/GI: Soft, non-tender, with normal bowel sounds. No distension or tympany. No guarding or rebound. No evidence of tenderness throughout. Skin: Warm, dry with normal turgor. Normal color with no rashes, no lesions, and no evidence of cellulitis. Neuro: Awake and alert, GCS 15, oriented to person, place, time, and situation. Cranial nerves II-XII grossly intact. Motor strength 5/5 in all extremities. Sensory grossly intact. Cerebellar exam normal. Normal gait. Vital Signs: 19:40 Weight 90.72 kg (R); Height 5 ft. 6 in. (167.64 cm) (R); fc 19:47 BP 128 / 78; Pulse 92; Resp 20; Temp 98.3(O); Pulse Ox 98% on R/A; Pain 10/10; aj1 20:30 BP 158 / 86; Pulse 96; Resp 20; Pulse Ox 99% ; aj1 21:40 BP 141 / 62; Pulse 98; Resp 18; Pulse Ox 98% on R/A; aj1 22:40 BP 141 / 62; Pulse 92; Resp 18 S; Pulse Ox 98% on R/A; d3 02/24 00:15 BP 140 / 80; Pulse 87; Resp 18 S; Pulse Ox 98% on R/A; [facility] 02/23 19:40 Body Mass Index 32.28 (90.72 kg, 167.64 cm) fc Edilberto Coma Score: 02/23 19:40 Eye Response: spontaneous(4). Verbal Response: oriented(5). Motor Response: obeys commands(6). Total: 15. MDM: 19:48 Patient medically screened. 20:00 Differential diagnosis: cerebral vascular accident, drug overdose, cardiac arrhythmia, cp seizure, TIA. 23:00 Data reviewed: vital signs, nurses notes, VSS. Patient with observed seizure while in ED. Will transfer for continued observation and neurology consult. 23:23 Physician consultation: DR Lee, neurologist \T\[facility], will accept patient as transfer. 02/23 19:48 Order name: glucometer results - FOR PT WITH NO ID; Complete Time: 21:10 [facility] 02/23 19:51 Order name: Acetaminophen; Complete Time: 21:34 02/23 19:51 Order name: Basic Metabolic Panel; Complete Time: 21:34 02/23 21:34 Interpretation: Normal except: CL 112. 02/23 19:51 Order name: CBC with Diff; Complete Time: 21:10 02/23 21:10 Interpretation: Normal except: WBC 13.0; MPV 7.2; EVANGELINA% 77.8; NEUT A 10.1. 02/23 19:51 Order name: ETOH Level; Complete Time: 21:34 02/23 19:51 Order name: Hepatic Function; Complete Time: 21:34 02/23 19:51 Order name: PT-INR; Complete Time: 21:10 02/23 19:51 Order name: Ptt, Activated; Complete Time: 21:10 02/23 19:51 Order name: Salicylate; Complete Time: 21:10 cp 02/23 19:51 Order name: Urine Drug Screen; Complete Time: 22:36 02/23 22:36 Interpretation: Normal except: THC POSITIVE. 02/23 21:10 Order name: CT Head Brain wo Cont; Complete Time: 21:34 cp 02/23 21:34 Interpretation: Report reviewed. 02/23 21:26 Order name: Urine Dipstick--Ancillary (enter results); Complete Time: 22:36 jw5 02/23 21:54 Order name: Troponin I; Complete Time: 22:36 cp 02/23 21:56 Order name: Dilantin; Complete Time: 22:55 cp 02/23 19:51 Order name: EKG; Complete Time: 19:52 02/23 19:51 Order name: EKG - Nurse/Tech; Complete Time: 20:04 02/23 19:51 Order name: IV Saline Lock; Complete Time: 20:19 02/23 19:51 Order name: Labs collected and sent; Complete Time: 20:19 02/23 19:51 Order name: Urine Dipstick-Ancillary (obtain specimen); Complete Time: 21:37 02/23 21:54 Order name: EKG - Nurse/Tech; Complete Time: 22:10 cp EC:03 Rate is 92 beats/min. Rhythm is regular. KS interval is normal. QRS interval is normal. cp QT interval is normal. No ST changes noted. Interpreted by me. Reviewed by me. 22:12 Rate is 109 beats/min. Rhythm is regular. KS interval is normal. QRS interval is cp normal. QT interval is normal. No ST changes noted. Interpreted by me. Reviewed by me. Administered Medications: 20:18 Drug: Keppra 1000 mg Route: IV; Rate: calculated rate; Site: right antecubital; tl2 23:34 Follow up: Response: No adverse reaction; IV Status: Completed infusion jd3 21:12 Drug: Ativan 2 mg Route: IVP; Site: right antecubital; aj1 21:37 Follow up: Response: No adverse reaction aj1 21:42 Drug: Zofran 4 mg Route: IVP; Site: right antecubital; aj1 21:58 Follow up: Response: No adverse reaction aj1 21:57 Drug: TORadol 30 mg Route: IVP; Site: right antecubital; aj1 21:58 Follow up: Response: No adverse reaction aj1 23:33 Drug: NS 0.9% 1000 ml Route: IV; Rate: 1 bolus; Site: right antecubital; jd3 02/24 00:21 Follow up: Response: No adverse reaction; IV Status: Completed infusion; IV Intake: jd3 1000ml 02/23 23:34 Drug: NS 0.9% 1000 ml Route: IV; Rate: 125 ml/hr; Site: right antecubital; jd3 02/24 00:22 Follow up: Response: No adverse reaction; IV Status: Infusion continued upon transfer j Point of Care Testing: Blood Glucose: 02/23 19:48 Blood Glucose: 98 mg/dL; jd3 Ranges: Critical Glucose Levels:Adult <50 mg/dl or >400 mg/dl <40 mg/dl or >180 mg/dl Disposition: 02/23/18 23:26 Transfer ordered to [facility]. Diagnosis is Epilepsy and recurrent seizures. - Reason for transfer: Higher level of care. - Accepting physician is DR Lee. - Condition is Stable. - Problem is an ongoing problem. - Symptoms have improved. Addendum: 02/28/2018 20:22 Co-signature as Attending Physician, Kaushik Menchaca MD I agree with the assessment and w a plan of care. Signatures: Dispatcher [employer] Lulú Bejarano RN RN aj1 Sangeeta Alberts RN RN Bipin [place] PA PA cp Nadine Martinez RN RN tl2 Kaushik Menchaca MD MD wa Davies, Jonathon, RN RN jd3 Corrections: (The following items were deleted from the chart) 02/23 19:53 19:52 Home Meds: Keppra Oral 2 times per day; [facility] 02/24 00:19 02/23 23:26 02/23/2018 23:26 Transfer ordered to [facility]. jd3 Diagnosis is Epilepsy and recurrent seizures. Reason for transfer: Higher level of care. Accepting physician is DR Lee. Condition is Stable. Problem is an ongoing problem. Symptoms have improved. cp
[2018-02-23] MEDS ORDERED: NA CHLORIDE 0.9% 2,000 ML ONE (23:31)
--- NOTE | 2018-02-24 09:21 | EKG ---
Test Date: 2018-02-23 Test Time: 19:57:26 Eligibility Specialist: RONALD MEASUREMENT RESULTS: Intervals: Rate: 92 VT: 114 QRSD: 80 QT: 324 QTc: 400 [place]: P: 80 VT: 114 QRS: 86 T: 47 INTERPRETIVE STATEMENTS: Sinus rhythm with marked sinus arrhythmia Otherwise normal ECG Compared to ECG 11/09/2017 08:14:55 No significant changes Electronically Signed On 02-24-18 07:33:27 CDT by Mahad Whitney
--- NOTE | 2018-02-24 12:52 | EKG ---
Test Date: 2018-02-23 Test Time: 22:06:39 Quantitative Consultant: LYRIC MEASUREMENT RESULTS: Intervals: Rate: 109 WA: 116 QRSD: 74 QT: 328 QTc: 441 [place]: P: 83 WA: 116 QRS: 86 T: 65 INTERPRETIVE STATEMENTS: Sinus tachycardia Otherwise normal ECG Compared to ECG 02/23/2018 19:57:26 Sinus rhythm no longer present Sinus arrhythmia no longer present Electronically Signed On 02-24-18 12:51:12 CDT by Mahad Whitney
== END 2018-02-24 00:19 | disposition short-term general hospital (02) ==
LOC: ER 19:44
DX: G40.909 Epilepsy, unspecified, not intractable, without status epilepticus (principal); E11.9 Type 2 diabetes mellitus without complications; Z79.4 Long term (current) use of insulin
CPT/HCPCS: 36415; 70450; 80048; 80076; 80185; 80307; 80320; 80329; 81003; 82962; 84484; 85025; 85610; 85730; 93005; 96361; 96365; 96366; 96375; 99285; J1953; J2405; J7030

== ENCOUNTER 2018-09-02 21:44 | Emergency (ER) | payer SELFPAY ==
--- OUTSIDE RECORDS SUMMARY | 2018-09-02 21:46 | XMS REPORT ---
:1980 [facility] Address [address] [place] [address] [place] [id number] Care Team Providers Name Role Phone MISSY JONES Unavailable Unavailable Problems This patient has no known problems. Allergies, Adverse Reactions, Alerts This patient has no known allergies or adverse reactions. Medications This patient has no known medications. Results Test Description Test Time Test Comments Text Results Atomic Results Result Comments BASIC METABOLIC PANEL 2018-02-24 03:44:00 Test Item Value Reference Range Comments SODIUM (BEAKER) (test 142 meq/L 136-145 vgfa=856) POTASSIUM (BEAKER) (test 3.8 meq/L 3.5-5.1 bnmh=172) CHLORIDE (BEAKER) (test 112 meq/L 98-107 bbla=526) CO2 (BEAKER) (test 24 meq/L 22-29 aiqx=968) BLOOD UREA NITROGEN 9 mg/dL 7-21 (BEAKER) (test ujmk=121) CREATININE (BEAKER) (test 0.80 mg/dL 0.57-1.25 rsnh=193) GLUCOSE RANDOM (BEAKER) 94 mg/dL 70-105 (test rxyx=634) CALCIUM (BEAKER) (test 9.1 mg/dL 8.4-10.2 kmjo=464) EGFR (BEAKER) (test 108 mL/min/1.73 sq m ESTIMATED GFR IS NOT bxbs=6416) ACCURATE CREATININE CLEARANCE IN PREDICTING GLOMERULAR FILTRATION RATE. ESTIMATED GFR IS NOT APPLICABLE FOR DIALYSIS PATIENTS. CBC W/PLT COUNT & AUTO [id number] 03:21:00 Test Item Value Reference Range Comments WHITE BLOOD CELL COUNT (BEAKER) (test mkho=427) 11.9 K/ L 3.5-10.5 RED BLOOD CELL COUNT (BEAKER) (test svzw=281) 4.55 M/ L 4.63-6.08 HEMOGLOBIN (BEAKER) (test ifbo=809) 13.0 GM/DL 13.7-17.5 HEMATOCRIT (BEAKER) (test vsio=664) 38.6 % 40.1-51.0 MEAN CORPUSCULAR VOLUME (BEAKER) (test nuiq=347) 84.8 fL 79.0-92.2 MEAN CORPUSCULAR HEMOGLOBIN (BEAKER) (test 28.6 pg 25.7-32.2 cdsn=591) MEAN CORPUSCULAR HEMOGLOBIN CONC (BEAKER) (test 33.7 GM/DL 32.3-36.5 kiua=979) RED CELL DISTRIBUTION WIDTH (BEAKER) (test 12.6 % 11.6-14.4 ydnf=696) PLATELET COUNT (BEAKER) (test odyh=092) 273 K/CU MM 150-450 MEAN PLATELET VOLUME (BEAKER) (test filk=620) 8.8 fL 9.4-12.4 NUCLEATED RED BLOOD CELLS (BEAKER) (test 0 /100 WBC 0-0 vdcq=459) NEUTROPHILS RELATIVE PERCENT (BEAKER) (test 58 % pwot=212) LYMPHOCYTES RELATIVE PERCENT (BEAKER) (test 31 % cchp=240) MONOCYTES RELATIVE PERCENT (BEAKER) (test 8 % hmxc=963) EOSINOPHILS RELATIVE PERCENT (BEAKER) (test 1 % fltp=316) BASOPHILS RELATIVE PERCENT (BEAKER) (test 1 % ohnj=911) NEUTROPHILS ABSOLUTE COUNT (BEAKER) (test 6.96 K/ L 1.78-5.38 hfbj=154) LYMPHOCYTES ABSOLUTE COUNT (BEAKER) (test 3.73 K/ L 1.32-3.57 bgqq=976) MONOCYTES ABSOLUTE COUNT (BEAKER) (test 0.99 K/ L 0.30-0.82 tjvt=440) EOSINOPHILS ABSOLUTE COUNT (BEAKER) (test 0.15 K/ L 0.04-0.54 pvva=831) BASOPHILS ABSOLUTE COUNT (BEAKER) (test 0.06 K/ L 0.01-0.08 cvvy=050) IMMATURE GRANULOCYTES-RELATIVE PERCENT (BEAKER) 0 % 0-1 (test sllr=3555)
--- OUTSIDE RECORDS SUMMARY | 2018-09-02 21:46 | XMS REPORT | Clinical Summary ---
:1980 Author Organization [facility] Address [address] [place] [address] Care Team Providers Name Role Phone Unavailable Primary Care Provider Unavailable Allergies No Known Allergies Medications Medication Sig Dispensed Refills Start Date End Date Status phenytoin extended Take 300 mg 0 Active (DILANTIN) 300 MG ER by mouth 2 capsuleIndications: (two) times epilepsy daily. levETIRAcetam Take 1.5 90 tablet 0 02/24/2018 Active (KEPPRA) 1000 MG tablets tabletIndications: (1,500 mg Partial Epilepsy total) by Treatment Adjunct mouth 2 (two) times daily. levETIRAcetam Take 1,500 mg 0 02/24/2018 Discontinued (KEPPRA) 1000 MG by mouth 2 tabletIndications: (two) times Partial Epilepsy daily. Treatment Adjunct Active Problems Problem Noted Date Seizure 02/24/2018 Encounters Date Type Specialty Care Team Description 02/24/2018 Hospital Encounter Intensive Care Faby Walker Seizure (HCC) MD Sylvie after 09/01/2017 Social History Tobacco Use Types Packs/Day Years Used Date Former Smoker Cigarettes Smokeless Tobacco: Never Used Alcohol Use Drinks/Week oz/Week Comments Yes 2-3 Cans of beer 1.2 - 1.8 Sex Assigned at Date Recorded Not on file Job Start Date Occupation Industry Not on file Not on file Not on file Travel History Travel Start Travel End No recent travel history available. Last Filed Vital Signs Vital Sign Reading Time Taken Blood Pressure 112/71 02/24/2018 7:00 AM CDT Pulse 71 02/24/2018 7:00 AM CDT Temperature 36.8 C (98.2 F) 02/24/2018 5:00 AM CDT Respiratory Rate 30 02/24/2018 7:00 AM CDT Oxygen Saturation 99% 02/24/2018 7:00 AM CDT Inhaled Oxygen Concentration - - Weight 95.6 kg (210 lb 12.2 oz) 02/24/2018 1:34 AM CDT Height 167.6 cm (5' 6") 02/24/2018 1:45 AM CDT Body Mass Index 34.02 02/24/2018 1:34 AM CDT Plan of Treatment Not on file Procedures Procedure Name Priority Date/Time Associated Comments Diagnosis RHYTHM STRIP - SCAN 02/28/2018 7:30 AM CDT CBC W/PLT COUNT & Routine 02/24/2018 3:06 Results for this AUTO DIFFERENTIAL AM CDT procedure are in the results section. CBC W/PLT COUNT & Routine 02/24/2018 3:06 Results for this AUTO DIFFERENTIAL AM CDT procedure are in the results section. BASIC METABOLIC PANEL Routine 02/24/2018 3:06 Results for this (7) AM CDT procedure are in the results section. after 09/01/2017 Results RHYTHM STRIP - SCAN (02/28/2018 7:30 AM CDT) Narrative Performed At CBC with platelet count + automated diff (02/24/2018 3:06 AM CDT) WBC 11.9 (H) 3.5 - 10.5 K/L [facility] RBC 4.55 (L) 4.63 - 6.08 M/L [facility] Hemoglobin 13.0 (L) 13.7 - 17.5 GM/DL [facility] Hematocrit 38.6 (L) 40.1 - 51.0 % [facility] MCV 84.8 79.0 - 92.2 fL [facility] MCH 28.6 25.7 - 32.2 pg [facility] MCHC 33.7 32.3 - 36.5 GM/DL [facility] RDW 12.6 11.6 - 14.4 % [facility] Platelets 273 150 - 450 K/CU MM [facility] MPV 8.8 (L) 9.4 - 12.4 fL [facility] nRBC 0 0 - 0 /100 WBC [facility] % Neutros 58 % [facility] % Lymphs 31 % [facility] % Monos 8 % [facility] % Eos 1 % [facility] % Baso 1 % [facility] # Neutros 6.96 (H) 1.78 - 5.38 K/L [facility] # Lymphs 3.73 (H) 1.32 - 3.57 K/L [facility] # Monos 0.99 (H) 0.30 - 0.82 K/L [facility] # Eos 0.15 0.04 - 0.54 K/L [facility] # Baso 0.06 0.01 - 0.08 K/L [facility] Immature Granulocytes-Relative 0 0 - 1 % [facility] Specimen Blood - Arm, Right Performing Organization Address City/State/Zipcode Phone Number [facility] [address] [place] [address] CENTER Basic Metabolic Panel (02/24/2018 3:06 AM CDT) Sodium 142 136 - 145 meq/L [facility] Potassium 3.8 3.5 - 5.1 meq/L [facility] Chloride 112 (H) 98 - 107 meq/L [facility] CO2 24 22 - 29 meq/L [facility] BUN 9 7 - 21 mg/dL [facility] Creatinine 0.80 0.57 - 1.25 mg/dL [facility] Glucose 94 70 - 105 mg/dL [facility] Calcium 9.1 8.4 - 10.2 mg/dL [facility] EGFR 108Comment: ESTIMATED GFR IS mL/min/1.[address] [facility] NOT ACCURATE CREATININE [facility] CLEARANCE IN PREDICTING GLOMERULAR FILTRATION RATE. ESTIMATED GFR IS NOT APPLICABLE FOR DIALYSIS PATIENTS. Specimen Blood - Arm, Right Performing Organization Address City/State/Zipcode Phone Number [facility] [address] [place] [id number] CENTER after 09/01/2017 Advance Directives For more information, please contact:[address] [phone] Code Status Date Activated Date Inactivated Comments Full Code 02/24/2018 2:36 AM 02/24/2018 10:43 AM This code status was determined by: Patient
[2018-09-02 22:20] LABS: Absolute Lymphocytes (CBC) 2.6 K/uL (0.7-4.9); Absolute Monocytes 0.9 K/uL (0.1-1.3); Absolute Neutrophil 8.1 K/uL (1.8-8.0); Basophils % 0.7 % (0-1.3); Eosinophils % 1.8 % (0-4.4); Hematocrit 34.8 % (39.6-49.0); Lymphocytes % 22.1 % (15.3-44.8); MPV 7.3 fL (7.6-11.3); Monocytes % 7.6 % (3.3-12.3); RBC Red Blood Cell Count 4.21 M/uL (4.33-5.43)
[2018-09-02 22:25] LABS: Protime INR 1.03
[2018-09-02 22:41] LABS: ALT/SGPT 21 U/L (12-78); AST/SGOT 17 U/L (15-37); Albumin 3.8 g/dL (3.4-5.0); Alkaline Phosphatase 90 U/L (45-117); BUN Blood Urea Nitrogen 11 mg/dL (7-18); Bicarbonate 24 mmol/L (21-32); Bilirubin Direct 0.1 mg/dL (0-0.2); Bilirubin Total 0.4 mg/dL (0.2-1.0); Glucose Level 90 mg/dL (74-106); Phenytoin (Dilantin) Level 0.7 ug/mL (10.0-20.0); Potassium 3.3 mmol/L (3.5-5.1); Protein, Total 7.2 g/dL (6.4-8.2); Sodium Level 142 mmol/L (136-145)
--- NOTE | 2018-09-03 01:39 | EDPHYS ---
Physician Documentation [facility] Name: Yonatan Ramos Age: 38 yrs Sex: Male : 1980 Arrival Date: 09/02/2018 Time: 21:46 Bed 2 Private MD: ED Physician Osmel Tatum HPI: 09/02 22:13 This 38 yrs old Male presents to ER via EMS with complaints of Seizure. jr8 22:13 The patient presents after having a single isolated seizure, that lasted 2 minute(s). jr8 22:13 Character of seizure(s): Loss of consciousness: the patient experienced loss of jr8 consciousness, Motor activity: generalized, Incontinence: none, Apnea: the patient did not experience apnea, Circulation: the patient did not experience evidence of pulse disturbance, Eye movements: are unknown. Seizure onset: just prior to arrival. Context: the seizure(s) was witnessed, by EMS personnel, by family, by police, occurred outdoors, occurred while the patient was being arrested . Contributing factors: stress. Seizure Hx: Original onset: longstanding, Cause: head injury, Last seizure: The patient's last seizure was approximately 4 day(s) ago, Usual frequency: irregular frequency, Seizure medications: Keppra, phenytoin. Associated injury: Head/face: abrasion, pain. EMS care: Ativan. Current symptoms: Currently, the patient is not experiencing any symptoms, the patient feels back to baseline, no decreased level of consciousness, no confusion, no dysphasia, no headache, no paralysis, no visual changes. The patient has not experienced similar symptoms in the past. The patient has not recently seen a physician. Historical: - Allergies: 21:48 No Known Allergies; la1 - PMHx: 21:48 Back pain; Chronic pain; Diabetes - IDDM; Nerve damage; Seizures; la1 - Immunization history:: Adult Immunizations up to date. - Social history:: Smoking status: Patient/guardian denies using tobacco. - Ebola Screening: : No symptoms or risks identified at this time. ROS: 22:21 Eyes: Negative for injury, pain, redness, and discharge, ENT: Negative for injury, jr8 pain, and discharge, Neck: Negative for injury, pain, and swelling, Cardiovascular: Negative for chest pain, palpitations, and edema, Respiratory: Negative for shortness of breath, cough, wheezing, and pleuritic chest pain, Abdomen/GI: Negative for abdominal pain, nausea, vomiting, diarrhea, and constipation, Back: Negative for injury and pain, MS/Extremity: Negative for injury and deformity, Skin: Negative for rash, and discoloration. Small abrasion present to forehead 22:21 Neuro: Positive for headache, seizure activity. Exam: 22:21 Eyes: Pupils equal round and reactive to light, extra-ocular motions intact. Lids and jr8 lashes normal. Conjunctiva and sclera are non-icteric and not injected. Cornea within normal limits. Periorbital areas with no swelling, redness, or edema. ENT: Nares patent. No nasal discharge, no septal abnormalities noted. Tympanic membranes are normal and external auditory canals are clear. Oropharynx with no redness, swelling, or masses, exudates, or evidence of obstruction, uvula midline. Mucous membranes moist. Neck: Trachea midline, no thyromegaly or masses palpated, and no cervical lymphadenopathy. Supple, full range of motion without nuchal rigidity, or vertebral point tenderness. No Meningismus. Cardiovascular: Regular rate and rhythm with a normal S1 and S2. No gallops, murmurs, or rubs. Normal PMI, no JVD. No pulse deficits. Respiratory: Lungs have equal breath sounds bilaterally, clear to auscultation and percussion. No rales, rhonchi or wheezes noted. No increased work of breathing, no retractions or nasal flaring. Abdomen/GI: Soft, non-tender, with normal bowel sounds. No distension or tympany. No guarding or rebound. No evidence of tenderness throughout. Back: No spinal tenderness. No costovertebral tenderness. Full range of motion. Skin: Warm, dry with normal turgor. Normal color with no rashes, no lesions, and no evidence of cellulitis. MS/ Extremity: Pulses equal, no cyanosis. Neurovascular intact. Full, normal range of motion. Neuro: Awake and alert, GCS 15, oriented to person, place, time, and situation. Cranial nerves II-XII grossly intact. Motor strength 5/5 in all extremities. Sensory grossly intact. Cerebellar exam normal. Normal gait. 22:21 Head/face: Noted is abrasion(s), that are mild, of the forehead. Vital Signs: 21:48 BP 120 / 91; Pulse 112; Resp 18; Pulse Ox 94% ; Weight 90.72 kg; la1 22:30 BP 113 / 79; Pulse 96; Resp 18; Pulse Ox 100% ; ea 09/03 00:54 BP 96 / 77; Pulse 80; Resp 18; Pulse Ox 99% on R/A; ea 01:27 BP 109 / 52; Pulse 78; Resp 18; Pulse Ox 95% on R/A; ea 01:45 BP 101 / 58; Pulse 70; Resp 18; Pulse Ox 97% on R/A; ea [place] Coma Score: 09/02 22:15 Eye Response: spontaneous(4). Verbal Response: oriented(5). Motor Response: obeys ea commands(6). Total: 15. MDM: 21:59 Patient medically screened. 09/03 01:36 Data reviewed: vital signs, nurses notes, lab test result(s), EKG, radiologic studies, CT scan, and as a result, I will discharge patient. Data interpreted: Pulse oximetry: on room air is 95 %. Interpretation: normal. Counseling: I had a detailed discussion with the patient and/or guardian regarding: the historical points, exam findings, and any diagnostic results supporting the discharge/admit diagnosis, lab results, radiology results, the need for outpatient follow up, a neurologist, to return to the emergency department if symptoms worsen or persist or if there are any questions or concerns that arise at home. Response to treatment: the patient's symptoms have resolved after treatment. ED course: No seizure activity while in ED. Labs and imaging without acute findings. Will d/c home to f/u with neurologist. Knows to come back if worse . 09/02 22:00 Order name: Acetaminophen; Complete Time: 22:53 09/02 22:00 Order name: Basic Metabolic Panel; Complete Time: 22:53 09/02 22:00 Order name: CBC with Diff; Complete Time: 22:30 09/02 22:00 Order name: ETOH Level; Complete Time: 22:41 09/02 22:00 Order name: Hepatic Function; Complete Time: 22:53 09/02 22:00 Order name: PT-INR; Complete Time: 22:30 09/02 22:00 Order name: Ptt, Activated; Complete Time: 22:30 09/02 22:00 Order name: Salicylate; Complete Time: 22:41 [facility] 09/02 22:00 Order name: EKG; Complete Time: 22:01 [facility] 09/02 22:00 Order name: EKG - Nurse/Tech; Complete Time: 23:06 [facility] 09/02 22:13 Order name: Dilantin [facility] 09/02 22:26 Order name: Phenytoin (Dilantin) Level; Complete Time: 22:53 [facility] 09/02 22:00 Order name: IV Saline Lock; Complete Time: 22:12 [facility] 09/02 22:00 Order name: Labs collected and sent; Complete Time: 22:12 [facility] 09/02 22:00 Order name: Glucose Level; Complete Time: 22:12 [facility] Administered Medications: No medications were administered Point of Care Testing: Blood Glucose: 09/02 21:50 Blood Glucose: 64 mg/dL; Ranges: Critical Glucose Levels:Adult <50 mg/dl or >400 mg/dl <40 mg/dl or >180 mg/dl Disposition: 09/03 20:16 Co-signature as Attending Physician, Osmel Tatum MD. Disposition: 09/03/18 01:38 Discharged to Home. Impression: Epilepsy and recurrent seizures. - Condition is Stable. - Discharge Instructions: Seizure, Adult. - Medication Reconciliation Form, Thank You Letter, Antibiotic Education, Prescription Opioid Use form. - Follow up: Private Physician; When: 2 - 3 days; Reason: Recheck today's complaints, Continuance of care, Re-evaluation by your physician. - Problem is new. - Symptoms are resolved. Signatures: Dispatcher [employer] [facility] Nhan Goff PA PA 8 Zbigniew He RN RN la1 Sade Fulton RN RN ea Starr, Gregory, MD MD Corrections: (The following items were deleted from the chart) 09/02 22:19 22:13 The patient presents after having a single isolated seizure, [facility]8 22:21 22:13 Associated injury: The patient did not suffer any apparent associated injury, [facility]8 22:26 22:14 Phenytoin (Dilantin) Level ordered. EDWY EDWY 09/03 02:00 09/02 22:00 Urine Dipstick-Ancillary ordered. [facility] ea 09/03 02:04 01:38 09/03/2018 01:38 Discharged to Home. Impression: Epilepsy and recurrent seizures. ea Condition is Stable. Forms are Medication Reconciliation Form, Thank You Letter, Antibiotic Education, Prescription Opioid Use. Follow up: Private Physician; When: 2 - 3 days; Reason: Recheck today's complaints, Continuance of care, Re-evaluation by your physician. Problem is new. Symptoms are resolved. jr8
--- NOTE | 2018-09-03 01:39 | ER ---
Nurse's Notes [facility] Name: Yonatan Ramos Age: 38 yrs Sex: Male : 1980 Arrival Date: 09/02/2018 Time: 21:46 Bed 2 Private MD: Diagnosis: Epilepsy and recurrent seizures Presentation: 09/02 21:46 Presenting complaint: EMS states: Pt was being arrested and began having a sz. Hx of la1 Sz. given 4mg ativan IM and 2mg ativan IV as well as 4mg zofran IV. Transition of care: patient was not received from another setting of care. Onset of symptoms was September 02, 2018. Risk Assessment: Do you want to hurt yourself or someone else? Patient reports no desire to harm self or others. Initial Sepsis Screen: Does the patient meet any 2 criteria? No. Patient's initial sepsis screen is negative. Does the patient have a suspected source of infection? No. Patient's initial sepsis screen is negative. Care prior to arrival: None. 21:46 Method Of Arrival: EMS: [facility] la1 21:46 Acuity: ANDREAS 2 la1 Historical: - Allergies: 21:48 No Known Allergies; la1 - PMHx: 21:48 Back pain; Chronic pain; Diabetes - IDDM; Nerve damage; Seizures; la1 - Immunization history:: Adult Immunizations up to date. - Social history:: Smoking status: Patient/guardian denies using tobacco. - Ebola Screening: : No symptoms or risks identified at this time. Screenin:59 Abuse screen: Denies threats or abuse. Nutritional screening: No deficits noted. ea Tuberculosis screening: No symptoms or risk factors identified. Fall Risk Secondary diagnosis (15 points) seizures. Assessment: 21:58 General: Appears in no apparent distress. Behavior is drowsy. Pain: Denies pain. Neuro: ea Level of Consciousness is awake, obeys commands, Oriented to person, place, time. Cardiovascular: Patient's skin is warm and dry. Respiratory: Airway is patent Respiratory effort is even, unlabored, Respiratory pattern is regular, symmetrical. Derm: Skin is pink, warm \T\ dry. Musculoskeletal: Circulation, motion, and sensation intact. 22:15 Reassessment: Patient and/or family updated on plan of care and expected duration. Pain ea level reassessed. Patient is alert, oriented x 3, equal unlabored respirations, skin warm/dry/pink. 23:20 Reassessment: Patient and/or family updated on plan of care and expected duration. Pain ea level reassessed. Patient is alert, oriented x 3, equal unlabored respirations, skin warm/dry/pink. 09/03 00:05 Reassessment: Patient and/or family updated on plan of care and expected duration. Pain ea level reassessed. Patient is alert, oriented x 3, equal unlabored respirations, skin warm/dry/pink. 01:30 Reassessment: Patient and/or family updated on plan of care and expected duration. Pain ea level reassessed. Patient is alert, oriented x 3, equal unlabored respirations, skin warm/dry/pink. Provider at bedside updating pt on plan of care. 02:00 Reassessment: Patient and/or family updated on plan of care and expected duration. Pain ea level reassessed. Patient is alert, oriented x 3, equal unlabored respirations, skin warm/dry/pink. Discharge instruction given to patient, verbalized the understanding of instruction Patient denies pain at this time. Patient states feeling better. Patient states symptoms have improved. Vital Signs: 09/02 21:48 BP 120 / 91; Pulse 112; Resp 18; Pulse Ox 94% ; Weight 90.72 kg; la1 22:30 BP 113 / 79; Pulse 96; Resp 18; Pulse Ox 100% ; ea 09/03 00:54 BP 96 / 77; Pulse 80; Resp 18; Pulse Ox 99% on R/A; ea 01:27 BP 109 / 52; Pulse 78; Resp 18; Pulse Ox 95% on R/A; ea 01:45 BP 101 / 58; Pulse 70; Resp 18; Pulse Ox 97% on R/A; ea [place] Coma Score: 09/02 22:15 Eye Response: spontaneous(4). Verbal Response: oriented(5). Motor Response: obeys ea commands(6). Total: 15. ED Course: 21:46 Patient arrived in ED. la1 21:47 Triage completed. la1 21:48 Arm band placed on right wrist. la1 21:50 Seizure precautions initiated. ea 21:58 Sade Fulton RN is Primary Nurse. ea 21:59 Nhan Goff PA is PHCP. jr8 21:59 Osmel Tatum MD is Attending Physician. jr8 23:07 EKG done, by ED staff, reviewed by Osmel Tatum MD. ds4 09/03 01:37 No provider procedures requiring assistance completed. ea 02:01 IV discontinued, intact, bleeding controlled, No redness/swelling at site. Pressure ea dressing applied. Administered Medications: No medications were administered Point of Care Testing: Blood Glucose: 09/02 21:50 Blood Glucose: 64 mg/dL; ea Ranges: Outcome: 09/03 01:38 Discharge ordered by . jr8 02:01 Condition: improved ea 02:01 Discharge instructions given to patient, Instructed on discharge instructions, follow up and referral plans. Demonstrated understanding of instructions. 02:04 Discharged to home ambulatory, with significant other. ea 02:04 Patient left the ED. ea Signatures: Nhan Goff PA PA jrDarnell Nava ds4 Zbigniew He, RN RN laSade Hardin RN RN alfredo
--- NOTE | 2018-09-03 19:12 | EKG ---
Test Date: 2018-09-02 Test Time: 22:48:50 Senior Electronics Design Engineer: AINSLEY MEASUREMENT RESULTS: Intervals: Rate: 101 OK: 122 QRSD: 94 QT: 342 QTc: 443 [place]: P: 66 OK: 122 QRS: 82 T: 11 INTERPRETIVE STATEMENTS: Sinus tachycardia Nonspecific T wave abnormality Abnormal ECG Compared to ECG 02/23/2018 22:06:39 T-wave abnormality now present Electronically Signed On 09-03-18 19:11:41 [employer] MACHINE by Mahad Whitney
== END 2018-09-03 02:04 | disposition home or self-care (01) ==
LOC: ER 21:44
DX: G40.909 Epilepsy, unspecified, not intractable, without status epilepticus (principal); E11.9 Type 2 diabetes mellitus without complications
CPT/HCPCS: 36415; 80048; 80076; 80185; 80320; 80329; 85025; 85610; 85730; 93005; 99283

== ENCOUNTER 2018-09-20 20:24 | Emergency (ER) | payer SELFPAY ==
--- OUTSIDE RECORDS SUMMARY | 2018-09-20 20:26 | XMS REPORT | Clinical Summary ---
:1980 Author Organization [facility] Address [address] [place] [address] Care Team Providers Name Role Phone Unavailable [...] Team Description 02/24/2018 [facility] Sylvie after 09/19/2017 Social History Tobacco Use Types Packs/Day Years [...] procedure are in the results section. after 09/19/2017 Results RHYTHM STRIP - SCAN (02/28/2018 7:30 AM CDT) Narrative Performed At CBC with platelet count + automated diff (02/24/2018 3:06 AM CDT) WBC 11.9 (H) 3.5 - 10.5 K/L [facility] RBC 4.55 (L) 4.63 - 6.08 M/L [facility] Hemoglobin 13.0 (L) 13.7 - 17.5 GM/DL [facility] Hematocrit 38.6 (L) 40.1 - 51.0 % [facility] MCV 84.8 79.0 - 92.2 fL [facility] MCH 28.6 25.7 - 32.2 pg [facility] MCHC 33.7 32.3 - 36.5 GM/DL [facility] RDW 12.6 11.6 - 14.4 % [facility] Platelets 273 150 - 450 K/CU MM [facility] MPV 8.8 (L) 9.4 - 12.4 fL [facility] nRBC 0 0 - 0 /100 WBC [facility] % Neutros 58 % [facility] % Lymphs 31 % [facility] % Monos 8 % [facility] % Eos 1 % [facility] % Baso 1 % [facility] # Neutros 6.96 (H) 1.78 - 5.38 K/L [facility] # Lymphs 3.73 (H) 1.32 - 3.57 K/L [facility] # Monos 0.99 (H) 0.30 - 0.82 K/L [facility] # Eos 0.15 0.04 - 0.54 K/L [facility] # Baso 0.06 0.01 - 0.08 K/L [facility] Immature Granulocytes-Relative 0 0 - 1 % [facility] Specimen Blood - Arm, Right Performing Organization Address City/State/Zipcode Phone Number [facility] [address] [place] [address] CENTER Basic Metabolic Panel (02/24/2018 3:06 AM CDT) Sodium 142 136 - 145 meq/L [facility] Potassium 3.8 3.5 - 5.1 meq/L [facility] Chloride 112 (H) 98 - 107 meq/L [facility] CO2 24 22 - 29 meq/L [facility] BUN 9 7 - 21 mg/dL [facility] Creatinine 0.80 0.57 - 1.25 mg/dL [facility] Glucose 94 70 - 105 mg/dL [facility] Calcium 9.1 8.4 - 10.2 mg/dL [facility] EGFR 108Comment: ESTIMATED GFR IS mL/min/1.73 sq m [facility] NOT ACCURATE CREATININE [facility] CENTER CLEARANCE IN PREDICTING GLOMERULAR FILTRATION RATE. ESTIMATED GFR IS NOT APPLICABLE FOR DIALYSIS PATIENTS. Specimen Blood - Arm, Right Performing Organization Address City/State/Zipcode Phone Number [facility] [address] [place] [id number] CENTER after 09/19/2017 Advance Directives For more information, please contact:[address] [phone] Code Status Date Activated Date Inactivated Comments Full Code 02/24/2018 2:36 AM 02/24/2018 10:43 AM This code status was determined by: Patient
--- OUTSIDE RECORDS SUMMARY | 2018-09-20 20:26 | XMS REPORT ---
:1980 [facility] Address [address] [place] [address] [address] [place] [address] Care Team Providers Name Role Phone MISSY JONES Unavailable Unavailable Problems This patient has no known problems. Allergies, Adverse Reactions, Alerts This patient has no known allergies or adverse reactions. Medications This patient has no known medications. Encounters Start End Encounter Admission Attending Care Care Encounter Date/Time Date/Time Type Type Clinicians Facility Department ID 2018-09-04 2018-09-04 Emergency [facility] MED [id number] 19:56:41 19:56:41 Results Test Description Test Time Test Comments Text Results Atomic Results Result Comments BASIC METABOLIC PANEL 2018-02-24 03:44:00 Test Item Value Reference Range Comments SODIUM (BEAKER) (test 142 meq/L 136-145 geia=637) POTASSIUM (BEAKER) (test 3.8 meq/L 3.5-5.1 pmiq=800) CHLORIDE (BEAKER) (test 112 meq/L 98-107 lkuq=541) CO2 (BEAKER) (test 24 meq/L 22-29 mnjo=424) BLOOD UREA NITROGEN 9 mg/dL 7-21 (BEAKER) (test nhsn=175) CREATININE (BEAKER) (test 0.80 mg/dL 0.57-1.25 itsh=573) GLUCOSE RANDOM (BEAKER) 94 mg/dL 70-105 (test dszr=506) CALCIUM (BEAKER) (test 9.1 mg/dL 8.4-10.2 rnrk=027) EGFR (BEAKER) (test 108 mL/min/1.73 sq m ESTIMATED GFR IS NOT wgss=7601) ACCURATE CREATININE CLEARANCE IN PREDICTING GLOMERULAR FILTRATION RATE. ESTIMATED GFR IS NOT APPLICABLE FOR DIALYSIS PATIENTS. CBC W/PLT COUNT & AUTO [id number] 03:21:00 Test Item Value Reference Range Comments WHITE BLOOD CELL COUNT (BEAKER) (test xnpl=607) 11.9 K/ L 3.5-10.5 RED BLOOD CELL COUNT (BEAKER) (test sufw=172) 4.55 M/ L 4.63-6.08 HEMOGLOBIN (BEAKER) (test ucbq=745) 13.0 GM/DL 13.7-17.5 HEMATOCRIT (BEAKER) (test uary=774) 38.6 % 40.1-51.0 MEAN CORPUSCULAR VOLUME (BEAKER) (test mhty=367) 84.8 fL 79.0-92.2 MEAN CORPUSCULAR HEMOGLOBIN (BEAKER) (test 28.6 pg 25.7-32.2 wcgu=855) MEAN CORPUSCULAR HEMOGLOBIN CONC (BEAKER) (test 33.7 GM/DL 32.3-36.5 mnte=464) RED CELL DISTRIBUTION WIDTH (BEAKER) (test 12.6 % 11.6-14.4 ermk=414) PLATELET COUNT (BEAKER) (test ussa=661) 273 K/CU MM 150-450 MEAN PLATELET VOLUME (BEAKER) (test nbek=968) 8.8 fL 9.4-12.4 NUCLEATED RED BLOOD CELLS (BEAKER) (test 0 /100 WBC 0-0 sliw=069) NEUTROPHILS RELATIVE PERCENT (BEAKER) (test 58 % wvov=798) LYMPHOCYTES RELATIVE PERCENT (BEAKER) (test 31 % mxak=491) MONOCYTES RELATIVE PERCENT (BEAKER) (test 8 % yjao=284) EOSINOPHILS RELATIVE PERCENT (BEAKER) (test 1 % keuq=696) BASOPHILS RELATIVE PERCENT (BEAKER) (test 1 % yjur=078) NEUTROPHILS ABSOLUTE COUNT (BEAKER) (test 6.96 K/ L 1.78-5.38 llmg=586) LYMPHOCYTES ABSOLUTE COUNT (BEAKER) (test 3.73 K/ L 1.32-3.57 nesg=198) MONOCYTES ABSOLUTE COUNT (BEAKER) (test 0.99 K/ L 0.30-0.82 alvx=919) EOSINOPHILS ABSOLUTE COUNT (BEAKER) (test 0.15 K/ L 0.04-0.54 tlzb=349) BASOPHILS ABSOLUTE COUNT (BEAKER) (test 0.06 K/ L 0.01-0.08 fzrb=243) IMMATURE GRANULOCYTES-RELATIVE PERCENT (BEAKER) 0 % 0-1 (test rgmc=0866)
--- OUTSIDE RECORDS SUMMARY | 2018-09-20 20:26 | XMS REPORT | Clinical Summary ---
:1980 Author Organization [facility] Address [facility] [place] [address] Care Team Providers Name Role Phone Unavailable Primary Care Provider Unavailable Allergies Not on File Medications Medication Sig Dispensed Refills Start Date End Date Status levETIRAcetam (KEPPRA) Take 1 tablet by 60 tablet 0 09/04/2018 Active 500 mg mouth 2 times tabletIndications: daily. Seizure Active Problems Problem Noted Date Seizure Encounters Date Type Specialty Care Team Description 09/04/2018 Emergency Emergency Medicine Mal Null MD Seizure ( Primary Dx) 09/04/2018 Travel after 09/19/2017 Social History Tobacco Use Types Packs/Day Years Used Date Never Assessed Sex Assigned at Date Recorded Not on file Job Start Date Occupation Industry Not on file Not on file Not on file Travel History Travel Start Travel End No recent travel history available. Last Filed Vital Signs Vital Sign Reading Time Taken Blood Pressure 104/69 09/04/2018 11:00 PM [employer] Pulse 87 09/04/2018 11:00 PM [employer] Temperature 36.6 C (97.9 F) 09/04/2018 11:00 PM [employer] Respiratory Rate 18 09/04/2018 11:00 PM [employer] Oxygen Saturation 96% 09/04/2018 11:00 PM [employer] Inhaled Oxygen Concentration - - Weight - - Height - - Body Mass Index - - Plan of Treatment Health Maintenance Due Date Last Done Comments IMM Influenza Seasonal May to September (>/=19 yrs) 05/01/2018 Procedures Procedure Name Priority Date/Time Associated Diagnosis Comments 12 LEAD EKG Routine 09/04/2018 8:49 PM Seizure Results for this [employer] procedure are in the results section. 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 Measurements IntervalsAxis Rate: 108P: 34 FL: 131QRS: 57 QRSD: 92 T: 35 QT: 327 QTc:438 Interpretive Statements SINUS TACHYCARDIA ABNORMAL RHYTHM ECG Reviewed by Electronically Signed On 09-05-2018 4:34:05 [employer] by Lavon Villarreal M.D. Performing Organization Address City/State/Zipcode Phone Number SMS after 09/19/2017 Insurance Payer Benefit Plan / Subscriber ID Effective Dates Phone Address Type Group HC HC UNSCREENED xxxxxxxxx 2018-Presen [phone] [place] [address]
[2018-09-20 21:01] LABS: Potassium 3.5 mmol/L (3.5-5.1)
[2018-09-20] MEDS ORDERED: NA CHLORIDE 0.9% 100 ML IV ONE (21:03)
[2018-09-20] MEDS ORDERED: NA CHLORIDE 0.9% 1,000 ML ONE (21:03)
[2018-09-20] MEDS ORDERED: LEVETIRACETAM 500 MG/5 ML VIAL IV ONE (21:03)
[2018-09-20] MEDS ORDERED: LORazepam 2 MG/ML VIAL ONE (21:09)
--- NOTE | 2018-09-21 00:01 | EDPHYS ---
Physician Documentation [facility] Name: Yonatan Ramos Age: 38 yrs Sex: Male : 1980 Arrival Date: 09/20/2018 Time: 20:30 Bed 16 Private MD: Kaushik Castano E ED Physician Hemal Montgomery HPI: 09/20 20:31 This 38 yrs old Male presents to ER via Unassigned with complaints of Seizure.rn 20:31 The patient presents with a history of multiple seizures, a total of 2. Character of rn seizure(s): Motor activity: generalized, Apnea: the patient did not experience apnea, Circulation: the patient did not experience evidence of pulse disturbance. Current symptoms: Currently, the patient is not experiencing any symptoms. The patient has experienced similar episodes in the past. Reports has 6-8 seizures/week, has to share his keppra with his mother who also has seizures, and often doesn't have enough due to financial reasons, had been sick last week with vomiting/diarrhea, now feels better, 2 seizures today, feels tired but no trauma. . Historical: - Allergies: 20:40 No Known Allergies; rr5 - Home Meds: 20:40 Dilantin Oral 300 mg twice a day [Active]; Keppra Oral [Active]; rr5 - PMHx: 20:40 Back pain; Chronic pain; Diabetes - IDDM; Nerve damage; Seizures; rr5 - PSHx: 20:40 right kidney surgery; Lithotripsy; rr5 - Immunization history:: Adult Immunizations up to date, Flu vaccine is not up to date. - Social history:: Smoking status: Patient/guardian denies using tobacco, the patient reports quitting approximately 8 years ago, Patient/guardian denies using alcohol, street drugs. - Family history:: not pertinent. - Ebola Screening: : Patient negative for fever greater than or equal to 101.5 degrees Fahrenheit, and additional compatible Ebola Virus Disease symptoms Patient denies exposure to infectious person Patient denies travel to an Ebola-affected area in the 21 days before illness onset. - Hospitalizations: : No recent hospitalization is reported. ROS: 20:31 Constitutional: Negative for fever, chills, and weight loss, Eyes: Negative for injury, rn pain, redness, and discharge, Neck: Negative for injury, pain, and swelling, Cardiovascular: Negative for chest pain, palpitations, and edema, Respiratory: Negative for shortness of breath, cough, wheezing, and pleuritic chest pain, Abdomen/GI: Negative for abdominal pain, nausea, vomiting, diarrhea, and constipation, MS/Extremity: Negative for injury and deformity, Skin: Negative for injury, rash, and discoloration, Neuro: + seizure and generalized weakness Exam: 20:31 Constitutional: This is a well developed, well nourished patient who is awake, alert, rn and in no acute distress. Head/Face: Normocephalic, atraumatic. Eyes: Pupils equal round and reactive to light, extra-ocular motions intact. Lids and lashes normal. Conjunctiva and sclera are non-icteric and not injected. Cornea within normal limits. Periorbital areas with no swelling, redness, or edema. ENT: dry MM Cardiovascular: Regular rate and rhythm, No pulse deficits. Respiratory: Lungs have equal breath sounds bilaterally, clear to auscultation. No increased work of breathing, no retractions or nasal flaring. Abdomen/GI: soft, non-tender MS/ Extremity: Pulses equal, no cyanosis. Neurovascular intact. Full, normal range of motion. Equal circumference. Neuro: Awake and alert, GCS 15, oriented to person, place, time, and situation. Cranial nerves II-XII grossly intact. Motor strength 5/5 in all extremities. Sensory grossly intact. Vital Signs: 20:35 BP 134 / 95; Pulse 112; Resp 17; Temp 98.7; Pulse Ox 98% on R/A; Weight 95.25 kg; rr5 Height 5 ft. (152.40 cm); Pain 7/10; 21:05 BP 128 / 84; Pulse 105; Resp 16; Pulse Ox 98% ; rr5 21:20 BP 115 / 76; Pulse 99; Resp 16; Pulse Ox 100% on 10% Non-rebreather mask; rr5 22:00 BP 118 / 80; Pulse 92; Resp 16; Pulse Ox 99% ; rr5 23:00 BP 101 / 70; Pulse 81; Resp 16; Pulse Ox 98% ; rr5 23:59 BP 126 / 73; Pulse 65; Resp 17; Pulse Ox 98% ; rr5 20:35 Body Mass Index 41.01 (95.25 kg, 152.40 cm) rr5 Orlando Coma Score: 20:35 Eye Response: spontaneous(4). Verbal Response: oriented(5). Motor Response: obeys rr5 commands(6). Total: 15. MDM: 20:30 Patient medically screened. rn 23:58 Differential diagnosis: seizure. Data reviewed: vital signs, nurses notes, lab test rn result(s), and as a result, I will discharge patient. Counseling: I had a detailed discussion with the patient and/or guardian regarding: the historical points, exam findings, and any diagnostic results supporting the discharge/admit diagnosis, lab results, the need for outpatient follow up, to return to the emergency department if symptoms worsen or persist or if there are any questions or concerns that arise at home. Response to treatment: the patient's symptoms have markedly improved after treatment, the patient's condition has returned to base line, the patient is now symptom free, patient is well hydrated. and as a result, I will discharge patient. Special discussion: I discussed with the patient/guardian in detail that at this point there is no indication for admission to the hospital. It is understood, however, that if the symptoms persist or worsen the patient needs to return immediately for re-evaluation. Based on the history and exam findings, there is no indication for further emergent testing or inpatient evaluation. I discussed with the patient/guardian the need to see the neurologist for further evaluation of the symptoms. 09/20 20:31 Order name: Basic Metabolic Panel; Complete Time: 21:12 rn 09/20 20:31 Order name: IV Start; Complete Time: 21:07 rn 09/20 20:31 Order name: Glucose Level; Complete Time: 21:21 rn Administered Medications: 21:00 Drug: Ativan 2 mg Route: IVP; Site: left antecubital; jd3 09/21 00:09 Follow up: Response: No adverse reaction rr5 09/20 21:05 Drug: NS 0.9% 1000 ml Route: IV; Rate: 1000 ml; Site: left forearm; rr5 22:30 Follow up: Response: No adverse reaction; IV Status: Completed infusion; IV Intake: rr5 1000ml 21:05 Drug: Keppra 1000 mg Route: IV; Rate: calculated rate; Site: left forearm; rr5 22:05 Follow up: Response: No adverse reaction; IV Status: Completed infusion; IV Intake: rr5 100ml Point of Care Testing: Blood Glucose: 21:15 Blood Glucose: 75 mg/dL; rr5 Ranges: Critical Glucose Levels:Adult <50 mg/dl or >400 mg/dl <40 mg/dl or >180 mg/dl Disposition: 09/20/18 23:59 Discharged to Home. Impression: Epilepsy and recurrent seizures. - Condition is Stable. - Discharge Instructions: Seizure, Adult. - Prescriptions for Keppra 500 mg Oral Tablet - take 1 tablet by ORAL route every 12 hours; 60 tablet. - Medication Reconciliation Form, Thank You Letter, Antibiotic Education, Prescription Opioid Use form. - Follow up: Private Physician; When: As needed; Reason: Recheck today's complaints, Re-evaluation by your physician. - Problem is an acute exacerbation. - Symptoms have improved. Signatures: Dispatcher [employer] EDHemal Brandt MD MD rn Davies, Jonathon, RN RN jd3 Navjot Hicks RN RN rr5 Corrections: (The following items were deleted from the chart) 09/21 00:13 09/20 23:59 09/20/2018 23:59 Discharged to Home. Impression: Epilepsy and recurrent rr5 seizures. Condition is Stable. Forms are Medication Reconciliation Form, Thank You Letter, Antibiotic Education, Prescription Opioid Use. Follow up: Private Physician; When: As needed; Reason: Recheck today's complaints, Re-evaluation by your physician. Problem is an acute exacerbation. Symptoms have improved. rn
--- NOTE | 2018-09-21 00:01 | ER ---
Nurse's Notes [facility] Name: Yonatan Ramos Age: 38 yrs Sex: Male : 1980 Arrival Date: 09/20/2018 Time: 20:30 Bed 16 Private MD: Kaushik Castano E Diagnosis: Epilepsy and recurrent seizures Presentation: 09/20 20:35 Presenting complaint: EMS states: had a tonic clonic seizure in [facility] around 2015H rr5 lasted for 60 seconds. post ictal of 1 minute. known case of epilepsy, on keppra on and off for 6 days. 20:35 Transition of care: [facility]. Onset of symptoms was September 20, 2018. Risk Assessment: Do rr5 you want to hurt yourself or someone else? Patient reports no desire to harm self or others. Initial Sepsis Screen: Does the patient meet any 2 criteria? No. Patient's initial sepsis screen is negative. Does the patient have a suspected source of infection? No. Patient's initial sepsis screen is negative. Care prior to arrival: Medication(s) given: ativan 2 mg IV by EMS. 20:35 Method Of Arrival: EMS: [facility] rr5 20:35 Acuity: ANDREAS 3 rr5 Triage Assessment: 20:35 General: Appears in no apparent distress. comfortable, Behavior is calm, cooperative, rr5 appropriate for age. Historical: - Allergies: 20:40 No Known Allergies; rr5 - Home Meds: 20:40 Dilantin Oral 300 mg twice a day [Active]; Keppra Oral [Active]; rr5 - PMHx: 20:40 Back pain; Chronic pain; Diabetes - IDDM; Nerve damage; Seizures; rr5 - PSHx: 20:40 right kidney surgery; Lithotripsy; rr5 - Immunization history:: Adult Immunizations up to date, Flu vaccine is not up to date. - Social history:: Smoking status: Patient/guardian denies using tobacco, the patient reports quitting approximately 8 years ago, Patient/guardian denies using alcohol, street drugs. - Family history:: not pertinent. - Ebola Screening: : Patient negative for fever greater than or equal to 101.5 degrees Fahrenheit, and additional compatible Ebola Virus Disease symptoms Patient denies exposure to infectious person Patient denies travel to an Ebola-affected area in the 21 days before illness onset. - Hospitalizations: : No recent hospitalization is reported. Screenin:36 Abuse screen: Denies threats or abuse. Denies injuries from another. Nutritional rr5 screening: No deficits noted. Tuberculosis screening: No symptoms or risk factors identified. Fall Risk Secondary diagnosis (15 points) seizures, IV access (20 points). Total Camargo Fall Scale indicates Low Risk Score (25-44 pts). Fall prevention measures have been instituted. Side Rails Up X 2 Frequent Obs/Assesments occuring As available Patient and Family Educated on Fall Prevention Program and strategies. Assessment: 20:35 General: Appears in no apparent distress. comfortable, Behavior is calm, cooperative, rr5 appropriate for age. Pain: Complains of pain in back of the head Pain does not radiate. Pain currently is 7 out of 10 on a pain scale. Quality of pain is described as aching, Pain began gradually, Is intermittent. Neuro: Level of Consciousness is awake, alert, obeys commands, Oriented to person, place, time, situation, Reports had a seizure 6-8x /week. Cardiovascular: Capillary refill < 3 seconds Patient's skin is warm and dry. 20:35 Respiratory: Airway is patent Respiratory effort is even, unlabored, Respiratory rr5 pattern is regular, symmetrical. GI: Abdomen is round. : No signs and/or symptoms were reported regarding the genitourinary system. EENT: No signs and/or symptoms were reported regarding the EENT system. Derm: Skin temperature is warm. Musculoskeletal: Capillary refill < 3 seconds, Range of motion: intact in all extremities. 21:00 Neuro: Seizure activity noted at this time. Type of seizure: tonic-clonic seizure. rr5 Seizure lasted approximately 1 minutes. 21:01 Reassessment: pt with seizure, provider notified, new orders received, see eMAR. jd3 21:01 Neuro: Seizure activity Patient is post-ictal at this time. rr5 21:30 Reassessment: Patient appears in no apparent distress at this time. awake conscious and rr5 coherent. 22:00 Reassessment: Patient appears in no apparent distress at this time. Patient is alert, rr5 oriented x 3, equal unlabored respirations, skin warm/dry/pink. Patient states feeling better. Patient states symptoms have improved. 23:15 Reassessment: Patient appears in no apparent distress at this time. Patient is alert, rr5 oriented x 3, equal unlabored respirations, skin warm/dry/pink. asleep on bed no complaints made. 09/21 00:05 Reassessment: Patient appears in no apparent distress at this time. Patient is alert, rr5 oriented x 3, equal unlabored respirations, skin warm/dry/pink. discharge instruction given and explained without complaints made. Patient states feeling better. Patient states symptoms have improved. Vital Signs: 09/20 20:35 BP 134 / 95; Pulse 112; Resp 17; Temp 98.7; Pulse Ox 98% on R/A; Weight 95.25 kg; rr5 Height 5 ft. (152.40 cm); Pain 7/10; 21:05 BP 128 / 84; Pulse 105; Resp 16; Pulse Ox 98% ; rr5 21:20 BP 115 / 76; Pulse 99; Resp 16; Pulse Ox 100% on 10% Non-rebreather mask; rr5 22:00 BP 118 / 80; Pulse 92; Resp 16; Pulse Ox 99% ; rr5 23:00 BP 101 / 70; Pulse 81; Resp 16; Pulse Ox 98% ; rr5 23:59 BP 126 / 73; Pulse 65; Resp 17; Pulse Ox 98% ; rr5 20:35 Body Mass Index 41.01 (95.25 kg, 152.40 cm) rr5 Edilberto Coma Score: 20:35 Eye Response: spontaneous(4). Verbal Response: oriented(5). Motor Response: obeys rr5 commands(6). Total: 15. ED Course: 20:30 Patient arrived in ED. bb 20:30 Kaushik Castano MD is Private Physician. bb 20:30 Hemal Montgomery MD is Attending Physician. rn 20:35 Arm band placed on right wrist. rr5 20:35 No provider procedures requiring assistance completed. Maintain EMS IV. Dressing rr5 intact. Good blood return noted. Site clean \T\ dry. Gauge \T\ site: G18 left forearm. IV is intact, Flushed left forearm saline lock. 20:36 Patient has correct armband on for positive identification. Bed in low position. Call rr5 light in reach. Side rails up X2. Seizure precautions initiated. traffic monitor specialist on. Pulse ox on. NIBP on. 20:37 Navjot Hicks RN is Primary Nurse. rr5 20:40 Triage completed. rr5 02/21 00:06 IV discontinued, intact, bleeding controlled, No redness/swelling at site. Pressure rr5 dressing applied. Administered Medications: 09/20 21:00 Drug: Ativan 2 mg Route: IVP; Site: left antecubital; jd3 09/21 00:09 Follow up: Response: No adverse reaction rr5 09/20 21:05 Drug: NS 0.9% 1000 ml Route: IV; Rate: 1000 ml; Site: left forearm; rr5 22:30 Follow up: Response: No adverse reaction; IV Status: Completed infusion; IV Intake: rr5 1000ml 21:05 Drug: Keppra 1000 mg Route: IV; Rate: calculated rate; Site: left forearm; rr5 22:05 Follow up: Response: No adverse reaction; IV Status: Completed infusion; IV Intake: rr5 100ml Point of Care Testing: Blood Glucose: 21:15 Blood Glucose: 75 mg/dL; rr5 Ranges: Intake: 21:20 PO: 240ml (Soft Drink); Total: 240ml. rr5 22:05 IV: 100ml; Total: 340ml. rr5 22:30 IV: 1000ml; Total: 1340ml. rr5 Output: 22:11 Urine: 400ml (Voided); Total: 400ml. rr5 Outcome: 23:59 Discharge ordered by . rn 09/21 00:06 Discharged to home ambulatory. rr5 Condition: stable Discharge instructions given to patient, Instructed on discharge instructions, follow up and referral plans. medication usage, Demonstrated understanding of instructions, follow-up care, medications, Prescriptions given X 1. 00:13 Patient left the ED. rr5 Signatures: Simin Ruff RN RN bb Nieto, Roman, MD MD rn Davies, Jonathon, RN RN jd3 Roque, Raymond, RN RN rr5
== END 2018-09-21 00:13 | disposition home or self-care (01) ==
LOC: ER 20:24
DX: G40.802 Other epilepsy, not intractable, without status epilepticus (principal); E11.9 Type 2 diabetes mellitus without complications
CPT/HCPCS: 36415; 80048; 82962; 96365; 96375; 99284; J1953; J7030

== ENCOUNTER 2018-10-18 10:45 | Emergency (ER) | payer SELFPAY ==
--- OUTSIDE RECORDS SUMMARY | 2018-10-18 10:47 | XMS REPORT | Clinical Summary ---
:1980 Author Organization [facility] Address [address] [place] [address] Care Team Providers Name Role Phone Unavailable [...] Team Description 02/24/2018 [facility] [place] after 10/17/2017 Social History Tobacco Use Types Packs/Day Years [...] procedure are in the results section. after 10/17/2017 Results RHYTHM STRIP - SCAN (02/28/2018 7:30 AM CDT) Narrative Performed At CBC with platelet count + automated diff (02/24/2018 3:06 AM CDT) WBC 11.9 (H) 3.5 - 10.5 K/L [facility] RBC 4.55 (L) 4.63 - 6.08 M/L [facility] Hemoglobin 13.0 (L) 13.7 - 17.5 GM/DL [facility] Hematocrit 38.6 (L) 40.1 - 51.0 % [facility] MCV 84.8 79.0 - 92.2 fL [facility] MCH 28.6 25.7 - 32.2 pg [facility] MCHC 33.7 32.3 - 36.5 GM/DL [facility] RDW 12.6 11.6 - 14.4 % [facility] Platelets 273 150 - 450 K/CU MM [facility] MPV 8.8 (L) 9.4 - 12.4 fL [facility] nRBC 0 0 - 0 /100 WBC [facility] % Neutros 58 % [facility] % Lymphs 31 % [facility] % Monos 8 % [facility] % Eos 1 % [facility] % Baso 1 % [facility] # Neutros 6.96 (H) 1.78 - 5.38 K/L [facility] # Lymphs 3.73 (H) 1.32 - 3.57 K/L [facility] # Monos 0.99 (H) 0.30 - 0.82 K/L [facility] # Eos 0.15 0.04 - 0.54 K/L [facility] # Baso 0.06 0.01 - 0.08 K/L [facility] Immature Granulocytes-Relative 0 0 - 1 % [facility] Specimen Blood - Arm, Right Performing Organization Address City/State/Zipcode Phone Number [facility] [address] [place] [address] CENTER Basic Metabolic Panel (02/24/2018 3:06 AM CDT) Sodium 142 136 - 145 meq/L [facility] Potassium 3.8 3.5 - 5.1 meq/L [facility] Chloride 112 (H) 98 - 107 meq/L [facility] CO2 24 22 - 29 meq/L [facility] BUN 9 7 - 21 mg/dL [facility] Creatinine 0.80 0.57 - 1.25 mg/dL [facility] Glucose 94 70 - 105 mg/dL [facility] Calcium 9.1 8.4 - 10.2 mg/dL [facility] EGFR 108Comment: ESTIMATED GFR IS mL/min/1.73 sq m [facility] NOT ACCURATE CREATININE [facility] CLEARANCE IN PREDICTING GLOMERULAR FILTRATION RATE. ESTIMATED GFR IS NOT APPLICABLE FOR DIALYSIS PATIENTS. Specimen Blood - Arm, Right Performing Organization Address City/State/Zipcode Phone Number [facility] [address] [place] [id number] CENTER after 10/17/2017 Advance Directives For more information, please contact:[address] [phone] Code Status Date Activated Date Inactivated Comments Full Code 02/24/2018 2:36 AM 02/24/2018 10:43 AM This code status was determined by: Patient
--- OUTSIDE RECORDS SUMMARY | 2018-10-18 10:47 | XMS REPORT ---
:1980 [facility] Address [address] [place] [address] [address] [place] [address] Care Team Providers Name Role Phone MISSY JONES Unavailable Unavailable Problems This patient has no known problems. Allergies, Adverse Reactions, Alerts This patient has no known allergies or adverse reactions. Medications This patient has no known medications. Encounters Start End Encounter Admission Attending Care Care Encounter Date/Time Date/Time Type Type Clinicians Facility Department ID 2018-09-04 2018-09-04 Emergency [facility] [id number] 19:56:41 19:56:41 Results Test Description Test Time Test Comments Text Results Atomic Results Result Comments BASIC METABOLIC PANEL 2018-02-24 03:44:00 Test Item Value Reference Range Comments SODIUM (BEAKER) (test 142 meq/L 136-145 rtnm=393) POTASSIUM (BEAKER) (test 3.8 meq/L 3.5-5.1 ucxo=043) CHLORIDE (BEAKER) (test 112 meq/L 98-107 zjtp=219) CO2 (BEAKER) (test 24 meq/L 22-29 dqlr=267) BLOOD UREA NITROGEN 9 mg/dL 7-21 (BEAKER) (test efsv=089) CREATININE (BEAKER) (test 0.80 mg/dL 0.57-1.25 scmg=357) GLUCOSE RANDOM (BEAKER) 94 mg/dL 70-105 (test hntn=632) CALCIUM (BEAKER) (test 9.1 mg/dL 8.4-10.2 jjae=976) EGFR (BEAKER) (test 108 mL/min/1.73 sq m ESTIMATED GFR IS NOT peri=0159) ACCURATE CREATININE CLEARANCE IN PREDICTING GLOMERULAR FILTRATION RATE. ESTIMATED GFR IS NOT APPLICABLE FOR DIALYSIS PATIENTS. CBC W/PLT COUNT & AUTO [id number] 03:21:00 Test Item Value Reference Range Comments WHITE BLOOD CELL COUNT (BEAKER) (test nuyk=851) 11.9 K/ L 3.5-10.5 RED BLOOD CELL COUNT (BEAKER) (test hkpk=335) 4.55 M/ L 4.63-6.08 HEMOGLOBIN (BEAKER) (test vwpo=938) 13.0 GM/DL 13.7-17.5 HEMATOCRIT (BEAKER) (test qavg=973) 38.6 % 40.1-51.0 MEAN CORPUSCULAR VOLUME (BEAKER) (test deqd=188) 84.8 fL 79.0-92.2 MEAN CORPUSCULAR HEMOGLOBIN (BEAKER) (test 28.6 pg 25.7-32.2 ohte=386) MEAN CORPUSCULAR HEMOGLOBIN CONC (BEAKER) (test 33.7 GM/DL 32.3-36.5 fntj=861) RED CELL DISTRIBUTION WIDTH (BEAKER) (test 12.6 % 11.6-14.4 znsg=590) PLATELET COUNT (BEAKER) (test bxny=145) 273 K/CU MM 150-450 MEAN PLATELET VOLUME (BEAKER) (test woyg=632) 8.8 fL 9.4-12.4 NUCLEATED RED BLOOD CELLS (BEAKER) (test 0 /100 WBC 0-0 getb=246) NEUTROPHILS RELATIVE PERCENT (BEAKER) (test 58 % uhok=486) LYMPHOCYTES RELATIVE PERCENT (BEAKER) (test 31 % tman=261) MONOCYTES RELATIVE PERCENT (BEAKER) (test 8 % mlnd=459) EOSINOPHILS RELATIVE PERCENT (BEAKER) (test 1 % otmz=575) BASOPHILS RELATIVE PERCENT (BEAKER) (test 1 % yezk=286) NEUTROPHILS ABSOLUTE COUNT (BEAKER) (test 6.96 K/ L 1.78-5.38 cwzs=067) LYMPHOCYTES ABSOLUTE COUNT (BEAKER) (test 3.73 K/ L 1.32-3.57 mwui=151) MONOCYTES ABSOLUTE COUNT (BEAKER) (test 0.99 K/ L 0.30-0.82 egww=847) EOSINOPHILS ABSOLUTE COUNT (BEAKER) (test 0.15 K/ L 0.04-0.54 iwit=748) BASOPHILS ABSOLUTE COUNT (BEAKER) (test 0.06 K/ L 0.01-0.08 pluk=965) IMMATURE GRANULOCYTES-RELATIVE PERCENT (BEAKER) 0 % 0-1 (test ylkl=4247)
--- OUTSIDE RECORDS SUMMARY | 2018-10-18 10:47 | XMS REPORT | Clinical Summary ---
:1980 Author Organization [facility] Address [facility] [place] [address] Care Team Providers Name Role Phone Unavailable [...] Seizure ( Primary Dx) 09/04/2018 Travel after 10/17/2017 Social History Tobacco Use Types Packs/Day Years Used Date Never Assessed Sex Assigned at Date Recorded Not on file Job Start Date Occupation Industry Not on file Not on file Not on file Travel History Travel Start Travel End No recent travel history available. Last Filed Vital Signs Vital Sign Reading Time Taken Blood Pressure 104/69 09/04/2018 11:00 PM ELECTROPLATING TECHNICIAN Pulse 87 09/04/2018 11:00 PM ELECTROPLATING TECHNICIAN Temperature 36.6 C (97.9 F) 09/04/2018 11:00 PM ELECTROPLATING TECHNICIAN Respiratory Rate 18 09/04/2018 11:00 PM ELECTROPLATING TECHNICIAN Oxygen Saturation 96% 09/04/2018 11:00 PM ELECTROPLATING TECHNICIAN Inhaled Oxygen Concentration - - Weight - - Height - - Body Mass Index - - Plan of Treatment Health Maintenance Due Date Last Done Comments IMM Influenza Seasonal May to September (>/=19 yrs) 05/01/2018 Procedures Procedure Name Priority Date/Time Associated Diagnosis Comments 12 LEAD EKG Routine 09/04/2018 8:49 PM Seizure Results for this ELECTROPLATING TECHNICIAN procedure are in the results section. after 10/17/2017 Results 12 LEAD EKG (09/04/2018 8:49 PM ELECTROPLATING TECHNICIAN) [facility] [address] 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 Measurements IntervalsAxis Rate: 108P: 34 [place]: 131QRS: 57 QRSD: 92 T: 35 QT: 327 QTc:438 Interpretive Statements SINUS TACHYCARDIA ABNORMAL RHYTHM ECG Reviewed by Electronically Signed On 09-05-2018 4:34:05 ELECTROPLATING TECHNICIAN by Lavon Villarreal M.D. Performing Organization Address City/State/Zipcode Phone Number SMS after 10/17/2017 Insurance Payer Benefit Plan / Subscriber ID Effective Dates Phone Address Type Group HC HC UNSCREENED xxxxxxxxx 2018-Presen [phone] [place] [address]
[2018-10-18 11:38] LABS: Absolute Lymphocytes (CBC) 2.7 K/uL (0.7-4.9); Absolute Monocytes 0.6 K/uL (0.1-1.3); Absolute Neutrophil 3.8 K/uL (1.8-8.0); Basophils % 0.5 % (0-1.3); Eosinophils % 3.3 % (0-4.4); Hematocrit 42.4 % (39.6-49.0); Lymphocytes % 36.7 % (15.3-44.8); Monocytes % 8.5 % (3.3-12.3); RBC Red Blood Cell Count 4.99 M/uL (4.33-5.43)
[2018-10-18] MEDS ORDERED: NA CHLORIDE 0.9% 1,000 ML ONE (11:41)
[2018-10-18 11:44] LABS: Protime INR 1.02
[2018-10-18 12:13] LABS: ALT/SGPT 20 U/L (12-78); AST/SGOT 13 U/L (15-37); Albumin 3.9 g/dL (3.4-5.0); Alkaline Phosphatase 87 U/L (45-117); BUN Blood Urea Nitrogen 9 mg/dL (7-18); Bicarbonate 24 mmol/L (21-32); Bilirubin Direct < 0.1 mg/dL (0-0.2); Bilirubin Total 0.4 mg/dL (0.2-1.0); Glucose Level 105 mg/dL (74-106); Magnesium 1.9 mg/dL (1.8-2.4); NT PRO-BNP 30 pg/mL (<125); Potassium 3.9 mmol/L (3.5-5.1); Protein, Total 7.4 g/dL (6.4-8.2); Sodium Level 143 mmol/L (136-145); Troponin (Emerg Dept Use Only) < 0.02 ng/mL (0.0-0.045)
[2018-10-18] MEDS ORDERED: levETIRAcetam 1,000 MG in NA CHLORIDE 0.9% 100 ML IV ONE (12:15)
--- NOTE | 2018-10-18 12:19 | EKG ---
Test Date: 2018-10-18 Test Time: 11:26:46 Log Cooker: RUBIN MEASUREMENT RESULTS: Intervals: Rate: 63 NM: 134 QRSD: 90 QT: 374 QTc: 382 Boles: P: 54 NM: 134 QRS: 76 T: 46 INTERPRETIVE STATEMENTS: Normal sinus rhythm Nonspecific ST abnormality Abnormal ECG Compared to ECG 09/02/2018 22:48:50 ST (T wave) deviation now present Sinus tachycardia no longer present T-wave abnormality no longer present Electronically Signed On 10-18-18 12:17:45 CDT by Mahad Whitney
--- NOTE | 2018-10-18 12:30 | EDPHYS ---
Physician Documentation [facility] Name: Yonatan Ramos Age: 38 yrs Sex: Male : 1980 Arrival Date: 10/18/2018 Time: 10:48 Bed 3 Private MD: Bipin Spangler HPI: 10/18 11:43 This 38 yrs old Male presents to ER via EMS with complaints of Seizure. rosina 11:43 The patient presents after having a single isolated seizure. Character of seizure(s): rosina Loss of consciousness: the patient experienced loss of consciousness, Motor activity: generalized. Seizure onset: just prior to arrival. Context: the seizure(s) was witnessed, by family. Seizure Hx: Last seizure: The patient's last seizure is unknown. Associated injury: The patient did not suffer any apparent associated injury. EMS care: none. Current symptoms: Currently, the patient is not experiencing any symptoms, was getting arrested when the seizure occured. The patient has experienced similar episodes in the past, multiple times. Historical: - Allergies: 10:50 No Known Allergies; aa5 - Home Meds: 10:50 Dilantin Oral 300 mg twice a day [Active]; Keppra Oral [Active]; aa5 - PMHx: 10:50 Back pain; Chronic pain; Diabetes - IDDM; Nerve damage; Seizures; aa5 - PSHx: 10:50 right kidney surgery; Lithotripsy; aa5 - Ebola Screening: : No symptoms or risks identified at this time. - Family history:: not pertinent. ROS: 11:43 Constitutional: Negative for fever, chills, and weight loss, Eyes: Negative for injury, rosina pain, redness, and discharge, ENT: Negative for injury, pain, and discharge, Neck: Negative for injury, pain, and swelling, Cardiovascular: Negative for chest pain, palpitations, and edema, Respiratory: Negative for shortness of breath, cough, wheezing, and pleuritic chest pain, Abdomen/GI: Negative for abdominal pain, nausea, vomiting, diarrhea, and constipation, Back: Negative for injury and pain, : Negative for injury, bleeding, discharge, and swelling, MS/Extremity: Negative for injury and deformity, Skin: Negative for injury, rash, and discoloration, Psych: Negative for depression, anxiety, suicide ideation, homicidal ideation, and hallucinations, Allergy/Immunology: Negative for hives, rash, and allergies, Endocrine: Negative for neck swelling, polydipsia, polyuria, polyphagia, and marked weight changes, Hematologic/Lymphatic: Negative for swollen nodes, abnormal bleeding, and unusual bruising. 11:43 Neuro: Positive for seizure activity. Exam: 11:43 Constitutional: This is a well developed, well nourished patient who is awake, alert, rosina and in no acute distress. Head/Face: Normocephalic, atraumatic. Eyes: Pupils equal round and reactive to light, extra-ocular motions intact. Lids and lashes normal. Conjunctiva and sclera are non-icteric and not injected. Cornea within normal limits. Periorbital areas with no swelling, redness, or edema. ENT: Nares patent. No nasal discharge, no septal abnormalities noted. Tympanic membranes are normal and external auditory canals are clear. Oropharynx with no redness, swelling, or masses, exudates, or evidence of obstruction, uvula midline. Mucous membranes moist. Neck: Trachea midline, no thyromegaly or masses palpated, and no cervical lymphadenopathy. Supple, full range of motion without nuchal rigidity, or vertebral point tenderness. No Meningismus. Chest/axilla: Normal chest wall appearance and motion. Nontender with no deformity. No lesions are appreciated. Cardiovascular: Regular rate and rhythm with a normal S1 and S2. No gallops, murmurs, or rubs. Normal PMI, no JVD. No pulse deficits. Respiratory: Lungs have equal breath sounds bilaterally, clear to auscultation and percussion. No rales, rhonchi or wheezes noted. No increased work of breathing, no retractions or nasal flaring. Abdomen/GI: Soft, non-tender, with normal bowel sounds. No distension or tympany. No guarding or rebound. No evidence of tenderness throughout. Back: No spinal tenderness. No costovertebral tenderness. Full range of motion. Male : Normal genitalia with no discharge or lesions. Skin: Warm, dry with normal turgor. Normal color with no rashes, no lesions, and no evidence of cellulitis. MS/ Extremity: Pulses equal, no cyanosis. Neurovascular intact. Full, normal range of motion. Neuro: Awake and alert, GCS 15, oriented to person, place, time, and situation. Cranial nerves II-XII grossly intact. Motor strength 5/5 in all extremities. Sensory grossly intact. Cerebellar exam normal. Normal gait. Psych: Awake, alert, with orientation to person, place and time. Behavior, mood, and affect are within normal limits. Vital Signs: 10:50 BP 113 / 80; Pulse 79; Resp 16 S; Temp 98.0(TE); Pulse Ox 96% on R/A; Pain 5/10; aa5 12:00 BP 105 / 65; Pulse 60; Resp 16; Pulse Ox 97% on R/A; Pain 0/10; aa5 13:00 BP 110 / 68; Pulse 68; Resp 18 S; Pulse Ox 97% on R/A; aa5 14:00 BP 114 / 67; Pulse 65; Resp 20 S; Pulse Ox 100% on R/A; Pain 0/10; aa5 Edilberto Coma Score: 10:50 Eye Response: spontaneous(4). Verbal Response: oriented(5). Motor Response: obeys aa5 commands(6). Total: 15. MDM: 10:49 Patient medically screened. [facility] 11:45 Data reviewed: vital signs, nurses notes, lab test result(s), EKG. [facility] 10/18 11:17 Order name: Basic Metabolic Panel; Complete Time: 12:28 [facility] 10/18 11:17 Order name: CBC with Diff; Complete Time: 11:49 [facility] 10/18 11:17 Order name: LFT's; Complete Time: 12:28 [facility] 10/18 11:17 Order name: Magnesium; Complete Time: 12:28 [facility] 10/18 11:17 Order name: NT PRO-BNP; Complete Time: 12:28 [facility] 10/18 11:17 Order name: PT-INR; Complete Time: 12:09 [facility] 10/18 11:17 Order name: Troponin (emerg Dept Use Only); Complete Time: 12:28 [facility] 10/18 11:17 Order name: Acetaminophen; Complete Time: 12:28 [facility] 10/18 11:17 Order name: ETOH Level; Complete Time: 12:28 [facility] 10/18 11:17 Order name: Ptt, Activated; Complete Time: 12:09 [facility] 10/18 11:17 Order name: XRAY Chest (1 view) [facility] 10/18 11:17 Order name: EKG; Complete Time: 11:18 [facility] 10/18 11:17 Order name: Cardiac monitoring; Complete Time: 11: [facility] 10/18 11:17 Order name: EKG - Nurse/Tech; Complete Time: 14: [facility] 10/18 11:17 Order name: O2 Per Protocol; Complete Time: 11: [facility] 10/18 11:17 Order name: O2 Sat Monitoring; Complete Time: 11: [facility] 10/18 11:17 Order name: Salicylate; Complete Time: 12: [facility] 10/18 11:17 Order name: Dilantin; Complete Time: 12: [facility] 10/18 11:17 Order name: IV Saline Lock; Complete Time: : [facility] 10/18 11:17 Order name: Labs collected and sent; Complete Time: [facility] 10/18 11:17 Order name: Seizure Precautions; Complete Time: 11: [facility] Administered Medications: 11:25 Drug: NS 0.9% 1000 ml Route: IV; Rate: 125 ml/hr; Site: right antecubital; aa5 14:00 Follow up: IV Status: Order to discontinue infusion aa 12:13 Drug: Keppra 1000 mg Route: IV; Rate: per protocol; Site: right antecubital; aa5 12:28 Follow up: Response: No adverse reaction; IV Status: Completed infusion aa5 Disposition: 10/18/18 12:29 Discharged to Home. Impression: Epilepsy and recurrent seizures - poorly compliant, Type 1 diabetes mellitus. - Condition is Stable. - Discharge Instructions: Type 1 Diabetes Mellitus, Diagnosis, Adult, Seizure, Adult, Seizure, Adult, [id number]-Onyb, Type 1 Diabetes Mellitus, Self Care, Adult, Type 1 Diabetes Mellitus, Diagnosis, Adult, Swtd-lu-Yfzy, Type 1 Diabetes Mellitus, Self Care, Adult, Eoky-bz-Fsmb. - Prescriptions for Keppra 500 mg Oral Tablet - take 1 tablet by ORAL route every 12 hours; 20 tablet. - Medication Reconciliation Form, Thank You Letter, Antibiotic Education, Prescription Opioid Use form. - Follow up: Private Physician; When: 2 - 3 days; Reason: Recheck today's complaints, Continuance of care, Re-evaluation by your physician. Follow up: Bert Lock; When: 2 - 3 days; Reason: Recheck today's complaints, Continuance of care, Re-evaluation by your physician. - Problem is new. - Symptoms have improved. Signatures: Dispatcher [employer] [facility] Bipin Euceda MD MD cha Calderon, Audri, RN RN aa5 Corrections: (The following items were deleted from the chart) 11:19 11:18 BASIC METABOLIC PANEL+C.LAB.BRZ ordered. [facility] 11:20 11:18 CBC+H.LAB.BRZ ordered. [facility] 11:20 11:18 HEPATIC FUNCTION+C.LAB.BRZ ordered. [facility] 11:20 11:18 PROTIME (+INR)+COAG.LAB.BRZ ordered. [facility] 11:21 11:17 IV Saline Lock ordered. [place] [id number] 11:21 11:17 Labs collected and sent ordered. [place] [id number] 11:22 11:17 EKG - Nurse/Tech ordered. [place] [id number] 11:42 11:19 PHENYTOIN (DILANTIN)+C.LAB.BRZ ordered. [facility] 12:29 12:29 10/18/2018 12:29 Discharged to Home. Impression: Epilepsy and recurrent seizures; rosina Type 1 diabetes mellitus. Condition is Stable. Discharge Instructions: Seizure, Adult, Seizure, Adult, Glha-us-Uoxj, Type 1 Diabetes Mellitus, Diagnosis, Adult, Type 1 Diabetes Mellitus, Self Care, Adult, Type 1 Diabetes Mellitus, Diagnosis, Adult, Enrz-ph-Mfkq, Type 1 Diabetes Mellitus, Self Care, Adult, Deib-ht-Inbs. Prescriptions for Keppra 500 mg Oral Tablet - take 1 tablet by ORAL route every 12 hours; 20 tablet. and Forms are Medication Reconciliation Form, Thank You Letter, Antibiotic Education, Prescription Opioid Use. Follow up: Private Physician; When: 2 - 3 days; Reason: Recheck today's complaints, Continuance of care, Re-evaluation by your physician. Follow up: Bert Lock; When: 2 - 3 days; Reason: Recheck today's complaints, Continuance of care, Re-evaluation by your physician. Problem is new. Symptoms have improved. [facility] 14:26 11:17 Urine Dipstick-Ancillary ordered. [place] [id number] 14:33 11:18 URINE DRUG SCREEN+CHEM UR.LAB.BRZ ordered. [facility] 14:33 12:29 10/18/2018 12:29 Discharged to Home. Impression: Epilepsy and recurrent seizures aa5 - poorly compliant; Type 1 diabetes mellitus. Condition is Stable. Discharge Instructions: Seizure, Adult, Seizure, Adult, Nlnj-mn-Pvwl, Type 1 Diabetes Mellitus, Diagnosis, Adult, Type 1 Diabetes Mellitus, Self Care, Adult, Type 1 Diabetes Mellitus, Diagnosis, Adult, Gsyw-ox-Awbs, Type 1 Diabetes Mellitus, Self Care, Adult, Ngpx-ox-Ffxx. Prescriptions for Keppra 500 mg Oral Tablet - take 1 tablet by ORAL route every 12 hours; 20 tablet. and Forms are Medication Reconciliation Form, Thank You Letter, Antibiotic Education, Prescription Opioid Use. Follow up: Private Physician; When: 2 - 3 days; Reason: Recheck today's complaints, Continuance of care, Re-evaluation by your physician. Follow up: Bert Lock; When: 2 - 3 days; Reason: Recheck today's complaints, Continuance of care, Re-evaluation by your physician. Problem is new. Symptoms have improved. rosina
--- NOTE | 2018-10-18 12:30 | ER ---
Nurse's Notes [facility] Name: Yonatan Ramos Age: 38 yrs Sex: Male : 1980 Arrival Date: 10/18/2018 Time: 10:48 Bed 3 Private MD: Diagnosis: Epilepsy and recurrent seizures-poorly compliant;Type 1 diabetes mellitus Presentation: 10/18 10:48 Presenting complaint: EMS states: pt had seizure after being arrested by PD today. Pt aa5 had 2 grand mal seizures upon EMS arrival. Pt reports he takes Keppra every 3 days because he can't afford to take it everyday. Pt is A\T\O x 4 at this time. C/O feeling sleepy and headache. 10:48 Transition of care: patient was not received from another setting of care. Onset of aa5 symptoms was October 18, 2018. Risk Assessment: Do you want to hurt yourself or someone else? Patient reports no desire to harm self or others. Initial Sepsis Screen: Does the patient meet any 2 criteria? No. Patient's initial sepsis screen is negative. Does the patient have a suspected source of infection? No. Patient's initial sepsis screen is negative. Care prior to arrival: Medication(s) given: Versed 5 mg intranasal. 10:48 Method Of Arrival: EMS: [facility] aa5 10:48 Acuity: ANDREAS 3 aa5 Historical: - Allergies: 10:50 No Known Allergies; aa5 - Home Meds: 10:50 Dilantin Oral 300 mg twice a day [Active]; Keppra Oral [Active]; aa5 - PMHx: 10:50 Back pain; Chronic pain; Diabetes - IDDM; Nerve damage; Seizures; aa5 - PSHx: 10:50 right kidney surgery; Lithotripsy; aa5 - Ebola Screening: : No symptoms or risks identified at this time. - Family history:: not pertinent. Screenin:50 Abuse screen: Denies threats or abuse. Nutritional screening: No deficits noted. aa5 Tuberculosis screening: No symptoms or risk factors identified. 10:57 Fall Risk Secondary diagnosis (15 points) seizures, IV access (20 points). Total [place] aa5 Fall Scale indicates Low Risk Score (25-44 pts). Fall prevention measures have been instituted. Side Rails Up X 2 Placed close to Nursing Station. Assessment: 10:50 General: Appears comfortable, Behavior is calm, cooperative. Pain: Complains of pain in aa5 forehead Pain currently is 5 out of 10 on a pain scale. Quality of pain is described as aching, Pain began post seizure. Neuro: Level of Consciousness is awake, alert, obeys commands, Oriented to person, place, time, situation, Binder Technician are equal bilaterally Moves all extremities. Speech is normal, Facial symmetry appears normal, Pupils are PERRLA. Cardiovascular: Heart tones S1 S2 present Rhythm is regular. Respiratory: Airway is patent Respiratory effort is even, unlabored, Respiratory pattern is regular, symmetrical, Breath sounds are clear bilaterally. GI: Abdomen is round non-distended, Bowel sounds present X 4 quads. Abd is soft and non tender X 4 quads. : No signs and/or symptoms were reported regarding the genitourinary system. EENT: No signs and/or symptoms were reported regarding the EENT system. Derm: Skin is pink, warm \T\ dry. Musculoskeletal: Range of motion: intact in all extremities. 11:30 Reassessment: Pt resting in bed with eyes closed, respirations even and unlabored, skin aa5 is pink/warm/dry. . 12:15 Reassessment: Patient and/or family updated on plan of care and expected duration. Pain aa5 level reassessed. Patient is alert, oriented x 3, equal unlabored respirations, skin warm/dry/pink. Pt resting in bed with eyes closed, pt easy to awaken to verbal stimuli. . 13:00 Reassessment: Pt resting in bed with eyes closed, respirations even and unlabored, skin aa5 is pink/warm/dry. . 14:00 Reassessment: No changes from previously documented assessment. Patient and/or family pc1 updated on plan of care and expected duration. Pain level reassessed. Patient is alert, oriented x 3, equal unlabored respirations, skin warm/dry/pink. pt is in bed with respirations even and unlabored without distress. Vital Signs: 10:50 BP 113 / 80; Pulse 79; Resp 16 S; Temp 98.0(TE); Pulse Ox 96% on R/A; Pain 5/10; aa5 12:00 BP 105 / 65; Pulse 60; Resp 16; Pulse Ox 97% on R/A; Pain 0/10; aa5 13:00 BP 110 / 68; Pulse 68; Resp 18 S; Pulse Ox 97% on R/A; aa5 14:00 BP 114 / 67; Pulse 65; Resp 20 S; Pulse Ox 100% on R/A; Pain 0/10; aa5 Eugene Coma Score: 10:50 Eye Response: spontaneous(4). Verbal Response: oriented(5). Motor Response: obeys aa5 commands(6). Total: 15. ED Course: 10:48 Patient arrived in ED. aa5 10:48 Arm band placed on Patient placed in an exam room, on a stretcher. aa5 10:48 Patient has correct armband on for positive identification. Placed in gown. Bed in low aa5 position. Call light in reach. Side rails up X2. Seizure precautions initiated. 10:49 Brenda Benedict, NABILA is Primary Nurse. aa5 10:49 Bipin Euceda MD is Attending Physician. rosina 10:57 Inserted saline lock: 22 gauge in right antecubital area, using aseptic technique. pc1 10:59 Triage completed. aa5 11:38 EKG done, by geological technician. reviewed by Bipin Euceda MD. at1 12:29 Bert Lock MD is Referral Physician. rosina 12:29 X-ray completed. Portable x-ray completed in exam room. Patient tolerated procedure jb2 well. 12:31 XRAY Chest (1 view) In Process Unspecified. EDMS 14:00 No provider procedures requiring assistance completed. IV discontinued, intact, aa5 bleeding controlled, No redness/swelling at site. Pressure dressing applied. Administered Medications: 11:25 Drug: NS 0.9% 1000 ml Route: IV; Rate: 125 ml/hr; Site: right antecubital; aa5 14:00 Follow up: IV Status: Order to discontinue infusion aa5 12:13 Drug: Keppra 1000 mg Route: IV; Rate: per protocol; Site: right antecubital; aa5 12:28 Follow up: Response: No adverse reaction; IV Status: Completed infusion aa5 Outcome: 12:29 Discharge ordered by . rosina 14:00 Discharged to home ambulatory, with family. aa5 14:00 Condition: stable 14:00 Discharge instructions given to patient, Instructed on discharge instructions, follow up and referral plans. medication usage, Demonstrated understanding of instructions, follow-up care, medications, Prescriptions given X 1. 14:00 Attestation : I agree with all documentation completed by Anthony Cabrera, Student nurse aa5 . 14:33 Patient left the ED. aa5 Signatures: Dispatcher [employer] EDBipin Ortiz MD MD cha Buechter, Jesse jb2 Brenda Benedict, RN RN aa5 Tatiana Tidwell, agriculture scientist EKG Tat1 Anthony Cabrera pc1 Corrections: (The following items were deleted from the chart) 12:15 10:50 Fall Risk None identified. aa5 aa5 14:48 14:03 BP 114 / 67; Pulse 55bpm; Resp 20bpm; Pulse Ox 100% RA; Pain 0/10; pc1 aa5
--- NOTE | 2018-10-18 12:35 | RAD REPORT ---
EXAM DESCRIPTION: Jen Single View10/18/2018 12:30 pm CLINICAL HISTORY: Seizure COMPARISON: 2017 FINDINGS: The lungs appear clear of acute infiltrate. The heart is normal size IMPRESSION: No acute abnormalities displayed
== END 2018-10-18 14:33 | disposition home or self-care (01) ==
LOC: ER 10:45
DX: G40.802 Other epilepsy, not intractable, without status epilepticus (principal); E10.9 Type 1 diabetes mellitus without complications
CPT/HCPCS: 36415; 71045; 80048; 80076; 80185; 80320; 80329; 83735; 83880; 84484; 85025; 85610; 85730; 93005; 96361; 96374; 99284; J1953; J7030

== ENCOUNTER 2018-12-28 16:22 | Emergency (ER) | payer SELFPAY ==
--- OUTSIDE RECORDS SUMMARY | 2018-12-28 16:36 | XMS REPORT ---
:1980 Author Organization [facility] Address [address] [place] [address] Dr. Camara [address] [place] [id number] Care Team Providers Name Role Phone JDJEAN-PAULSRINI SAVAGETHALIAMELISSA JOHNS Unavailable Unavailable Problems This patient has no known problems. Allergies, Adverse Reactions, Alerts This patient has no known allergies or adverse reactions. Medications This patient has no known medications. Encounters Start End Encounter Admission Attending Care Care Encounter Date/Time Date/Time Type Type Clinicians Facility Department ID 2018-09-04 2018-09-04 Emergency [facility] MED [id number] 19:56:41 19:56:41 Results Test Description Test Time Test Comments Text Results Atomic Results Result Comments BASIC METABOLIC PANEL 2018-02-24 03:44:00 Test Item Value Reference Range Comments SODIUM (BEAKER) (test 142 meq/L 136-145 pnlr=278) POTASSIUM (BEAKER) (test 3.8 meq/L 3.5-5.1 dffq=675) CHLORIDE (BEAKER) (test 112 meq/L 98-107 daze=149) CO2 (BEAKER) (test 24 meq/L 22-29 tjje=267) BLOOD UREA NITROGEN 9 mg/dL 7-21 (BEAKER) (test lnom=635) CREATININE (BEAKER) (test 0.80 mg/dL 0.57-1.25 cgis=175) GLUCOSE RANDOM (BEAKER) 94 mg/dL 70-105 (test znls=037) CALCIUM (BEAKER) (test 9.1 mg/dL 8.4-10.2 kerd=833) EGFR (BEAKER) (test 108 mL/min/1.73 sq m ESTIMATED GFR IS NOT pbaf=0443) ACCURATE CREATININE CLEARANCE IN PREDICTING GLOMERULAR FILTRATION RATE. ESTIMATED GFR IS NOT APPLICABLE FOR DIALYSIS PATIENTS. CBC W/PLT COUNT & AUTO [id number] 03:21:00 Test Item Value Reference Range Comments WHITE BLOOD CELL COUNT (BEAKER) (test uvgd=332) 11.9 K/ L 3.5-10.5 RED BLOOD CELL COUNT (BEAKER) (test wdan=723) 4.55 M/ L 4.63-6.08 HEMOGLOBIN (BEAKER) (test axpu=954) 13.0 GM/DL 13.7-17.5 HEMATOCRIT (BEAKER) (test ljlp=287) 38.6 % 40.1-51.0 MEAN CORPUSCULAR VOLUME (BEAKER) (test pvfz=137) 84.8 fL 79.0-92.2 MEAN CORPUSCULAR HEMOGLOBIN (BEAKER) (test 28.6 pg 25.7-32.2 dwhs=016) MEAN CORPUSCULAR HEMOGLOBIN CONC (BEAKER) (test 33.7 GM/DL 32.3-36.5 ndac=205) RED CELL DISTRIBUTION WIDTH (BEAKER) (test 12.6 % 11.6-14.4 tgid=824) PLATELET COUNT (BEAKER) (test qzor=499) 273 K/CU MM 150-450 MEAN PLATELET VOLUME (BEAKER) (test fkpf=673) 8.8 fL 9.4-12.4 NUCLEATED RED BLOOD CELLS (BEAKER) (test 0 /100 WBC 0-0 scww=009) NEUTROPHILS RELATIVE PERCENT (BEAKER) (test 58 % wapq=543) LYMPHOCYTES RELATIVE PERCENT (BEAKER) (test 31 % jenr=659) MONOCYTES RELATIVE PERCENT (BEAKER) (test 8 % mcgs=256) EOSINOPHILS RELATIVE PERCENT (BEAKER) (test 1 % vujw=228) BASOPHILS RELATIVE PERCENT (BEAKER) (test 1 % sbld=370) NEUTROPHILS ABSOLUTE COUNT (BEAKER) (test 6.96 K/ L 1.78-5.38 hjwt=247) LYMPHOCYTES ABSOLUTE COUNT (BEAKER) (test 3.73 K/ L 1.32-3.57 yeta=945) MONOCYTES ABSOLUTE COUNT (BEAKER) (test 0.99 K/ L 0.30-0.82 frxr=325) EOSINOPHILS ABSOLUTE COUNT (BEAKER) (test 0.15 K/ L 0.04-0.54 qnnu=074) BASOPHILS ABSOLUTE COUNT (BEAKER) (test 0.06 K/ L 0.01-0.08 nxnh=520) IMMATURE GRANULOCYTES-RELATIVE PERCENT (BEAKER) 0 % 0-1 (test ugsc=8913)
--- OUTSIDE RECORDS SUMMARY | 2018-12-28 16:36 | XMS REPORT | Clinical Summary ---
:1980 Author Organization [facility] Address [address] [place] [address] Care Team Providers Name Role Phone Unavailable [...] Faby Walker Seizure (HCC) MD Sylvie after 12/27/2017 Social History Tobacco Use Types Packs/Day Years [...] procedure are in the results section. after 12/27/2017 Results RHYTHM STRIP - SCAN (02/28/2018 7:30 AM CDT) Narrative Performed At CBC with platelet count + automated diff (02/24/2018 3:06 AM CDT) WBC 11.9 (H) 3.5 - 10.5 K/L [facility] RBC 4.55 (L) 4.63 - 6.08 M/L [facility] Hemoglobin 13.0 (L) 13.7 - 17.5 GM/DL [facility] Hematocrit 38.6 (L) 40.1 - 51.0 % [facility] MCV 84.8 79.0 - 92.2 fL [facility] MCH 28.6 25.7 - 32.2 pg [facility] MCHC 33.7 32.3 - 36.5 GM/DL [facility] RDW 12.6 11.6 - 14.4 % [facility] Platelets 273 150 - 450 K/CU MM [facility] MPV 8.8 (L) 9.4 - 12.4 fL [facility] nRBC 0 0 - 0 /100 WBC [facility] % Neutros 58 % [facility] % Lymphs 31 % [facility] % Monos 8 % [facility] % Eos 1 % [facility] % Baso 1 % [facility] # Neutros 6.96 (H) 1.78 - 5.38 K/L [facility] # Lymphs 3.73 (H) 1.32 - 3.57 K/L [facility] # Monos 0.99 (H) 0.30 - 0.82 K/L [facility] # Eos 0.15 0.04 - 0.54 K/L [facility] # Baso 0.06 0.01 - 0.08 K/L [facility] Immature Granulocytes-Relative 0 0 - 1 % [facility] Specimen Blood Performing Organization Address City/State/Zipcode Phone Number [facility] [address] [place] [address] [phone] CENTER Basic Metabolic Panel (02/24/2018 3:06 AM CDT) Sodium 142 136 - 145 meq/L [facility] Potassium 3.8 3.5 - 5.1 meq/L [facility] Chloride 112 (H) 98 - 107 meq/L [facility] CO2 24 22 - 29 meq/L [facility] BUN 9 7 - 21 mg/dL [facility] Creatinine 0.80 0.57 - 1.25 mg/dL [facility] Glucose 94 70 - 105 mg/dL [facility] Calcium 9.1 8.4 - 10.2 mg/dL [facility] EGFR 108Comment: ESTIMATED GFR IS mL/min/1.73 sq m [facility] NOT ACCURATE [facility] CLEARANCE IN PREDICTING GLOMERULAR FILTRATION RATE. ESTIMATED GFR IS NOT APPLICABLE FOR DIALYSIS PATIENTS. Specimen Blood Performing Organization Address City/State/Zipcode Phone Number [place] [phone] [place] [address] CENTER after 12/27/2017 Advance Directives For more information, please contact:[address] [phone] Code Status Date Activated Date Inactivated Comments Full Code 02/24/2018 2:36 AM 02/24/2018 10:43 AM This code status was determined by: Patient
--- OUTSIDE RECORDS SUMMARY | 2018-12-28 16:36 | XMS REPORT | Clinical Summary ---
:1980 Author Organization [facility] Address [facility] [place] [address] Care Team Providers Name Role Phone Unavailable [...] Seizure ( Primary Dx) 09/04/2018 Travel after 12/27/2017 Social History Tobacco Use Types Packs/Day Years Used Date Never Assessed Sex Assigned at Date Recorded Not on file Job Start Date Occupation Industry Not on file Not on file Not on file Travel History Travel Start Travel End No recent travel history available. Last Filed Vital Signs Vital Sign Reading Time Taken Comments Blood Pressure 104/69 09/04/2018 11:00 PM [employer] Pulse 87 09/04/2018 11:00 PM [employer] Temperature 36.6 C (97.9 F) 09/04/2018 11:00 PM [employer] Respiratory Rate 18 09/04/2018 11:00 PM [employer] Oxygen Saturation 96% 09/04/2018 11:00 PM [employer]PER[employer]GER Inhaled Oxygen Concentration - - Weight - - Height - - Body Mass Index - - Plan of Treatment Health Maintenance Due Date Last Done Comments IMM Influenza Seasonal May to September (>/=19 yrs) 05/01/2019 Procedures Procedure Name Priority Date/Time Associated Diagnosis Comments 12 LEAD EKG Routine 09/04/2018 8:49 PM Seizure Results for this [employer] procedure are in the results section. after 12/27/2017 Results 12 LEAD EKG (09/04/2018 8:49 PM DISTRIBUTION OPERATIONS [employer]NAGER) [facility] 12 LEAD EKG FOR [facility] SMS Test Date:2018-09-04 Pat Name: YONATAN [address]valopartment: [id number] : Gender: Vitor Jackerman: [id number] :1980 Requested By: ROGELIO Jaeger Order Number: [id number] MD: Lavon Villarreal M.D. Measurements IntervalsAxis Rate: 108P: 34 UT: 131QRS: 57 QRSD: 92 T: 35 QT: 327 QTc:438 Interpretive Statements SINUS TACHYCARDIA ABNORMAL RHYTHM ECG Reviewed by Electronically Signed On 09-05-2018 4:34:05 DISTRI[employer]PERATIONS [employer]GER by Lavon Villarreal M.D. Specimen Performing Organization Address City/State/Zipcode Phone Number SMS after 12/27/2017 Insurance Payer Benefit Plan / Subscriber ID Effective Dates Phone Address Type Group HD SELF-PAY xxxxxxxxx 2018-[facility] [phone] SELF-PAY U[address]CREENED [address] [place] [address]
[2018-12-28] MEDS ORDERED: FOSPHENYTOIN PE 1,000 MG in NA CHLORIDE 0.9% 100 ML IV ONE ×2 (17:00→18:00)
[2018-12-28 17:17] LABS: Absolute Lymphocytes (CBC) 2.5 K/uL (0.7-4.9); Absolute Monocytes 0.7 K/uL (0.1-1.3); Basophils % 0.8 % (0-1.3); Eosinophils % 2.5 % (0-4.4); Hematocrit 38.6 % (39.6-49.0); MPV 7.8 fL (7.6-11.3); Monocytes % 7.8 % (3.3-12.3); RBC Red Blood Cell Count 4.66 M/uL (4.33-5.43)
[2018-12-28 17:26] LABS: Protime INR 1.03
[2018-12-28 17:32] LABS: ALT/SGPT 24 U/L (12-78); AST/SGOT 13 U/L (15-37); Albumin 3.7 g/dL (3.4-5.0); Alkaline Phosphatase 83 U/L (45-117); BUN Blood Urea Nitrogen 11 mg/dL (7-18); Bicarbonate 23 mmol/L (21-32); Bilirubin Direct < 0.1 mg/dL (0-0.2); Bilirubin Total 0.3 mg/dL (0.2-1.0); Glucose Level 106 mg/dL (74-106); Potassium 3.4 mmol/L (3.5-5.1); Protein, Total 7.2 g/dL (6.4-8.2); Sodium Level 143 mmol/L (136-145)
[2018-12-28 17:33] LABS: Phenytoin (Dilantin) Level < 0.4 ug/mL (10.0-20.0)
[2018-12-28] MEDS ORDERED: LEVETIRACETAM 500 MG/5 ML VIAL IV ONE (20:18)
[2018-12-28] MEDS ORDERED: NA CHLORIDE 0.9% 100 ML IV ONE (20:18)
--- NOTE | 2018-12-28 20:44 | EDPHYS ---
Physician Documentation [facility] Name: Yonatan Ramos Age: 38 yrs Sex: Male : 1980 Arrival Date: 12/28/2018 Time: 16:23 Bed 16 Private MD: ED Physician Yony Mike HPI: 12/28 16:43 This 38 yrs old Male presents to ER via EMS with complaints of Seizure. m 16:43 The patient presents with a history of multiple seizures. Seizure onset: just prior to [facility] arrival. Seizure Hx: Seizure medications: Keppra, phenytoin. This is a 38 year old male with a history of epilepsy that presents to the ED after multiple seizures just prior to arrival. patient states he has not taken his medication in the past week. patient states he shares his medication with his mother. . Historical: - Allergies: 16:26 No Known Allergies; aa5 - Home Meds: 16:26 Dilantin Oral 300 mg twice a day [Active]; Keppra Oral [Active]; aa5 - PMHx: 16:26 Chronic pain; Diabetes - IDDM; Back pain; Nerve damage; Seizures; aa5 - PSHx: 16:26 right kidney surgery; Lithotripsy; aa5 - Immunization history:: Adult Immunizations up to date. - Social history:: Smoking status: Patient/guardian denies using tobacco. - Ebola Screening: : Patient negative for fever greater than or equal to 101.5 degrees Fahrenheit, and additional compatible Ebola Virus Disease symptoms Patient denies exposure to infectious person Patient denies travel to an Ebola-affected area in the 21 days before illness onset No symptoms or risks identified at this time. ROS: 16:43 Constitutional: Negative for fever, chills, and weight loss, Cardiovascular: Negative [facility] for chest pain, palpitations, and edema, Respiratory: Negative for shortness of breath, cough, wheezing, and pleuritic chest pain. 16:43 Neuro: Positive for seizure activity. 16:43 All other systems are negative. Exam: 16:43 Head/Face: atraumatic. Eyes: EOMI, no conjunctival erythema appreciated ENT: Moist jmm Mucus Membranes Neck: Trachea midline, Supple Chest/axilla: Normal chest wall appearance and motion. Cardiovascular: Regular rate and rhythm. No edema appreciated Respiratory: Normal respirations, no respiratory distress appreciated Abdomen/GI: Non distended, soft Back: Normal ROM 16:43 Constitutional: The patient appears post ictal 16:43 Skin: abrasion noted to the left side of the forehead. 16:43 Neuro: Orientation: is normal, Mentation: is normal, Memory: is normal. Vital Signs: 16:26 BP 113 / 78; Pulse 113; Resp 19; Temp 98.6; Pulse Ox 95% on R/A; Weight 95.25 kg; aa5 Height 5 ft. 8 in. (172.72 cm); 17:00 BP 109 / 80; Pulse 109; Resp 18 S; Pulse Ox 100% on 2 lpm NC; aa5 17:30 BP 108 / 75; Pulse 90; Resp 16 S; Pulse Ox 100% on 2 lpm NC; aa5 18:30 BP 97 / 69; Pulse 80; Resp 18 S; Pulse Ox 100% on R/A; aa5 19:15 BP 98 / 78; Pulse 69; Resp 18; Pulse Ox 98% on R/A; Pain 5/10; lp1 20:00 BP 102 / 68; Pulse 73; Resp 18; Pulse Ox 97% on R/A; lp1 20:59 BP 110 / 73; Pulse 74; Resp 18; Temp 98.1(O); Pulse Ox 98% on R/A; lp1 16:26 Body Mass Index 31.93 (95.25 kg, 172.72 cm) aa5 [place] Coma Score: 16:26 Eye Response: spontaneous(4). Verbal Response: oriented(5). Motor Response: obeys aa5 commands(6). Total: 15. MDM: 16:43 Patient medically screened. [facility] 20:43 Data reviewed: vital signs, nurses notes. Counseling: I had a detailed discussion with [facility] the patient and/or guardian regarding: the historical points, exam findings, and any diagnostic results supporting the discharge/admit diagnosis, the need for outpatient follow up, to return to the emergency department if symptoms worsen or persist or if there are any questions or concerns that arise at home. 20:43 ED course: Patient is alert and non toxic in appearance on reevaluation. patient is [facility] advised to follow up with neuro for further evaluation. patient is advised to return to the ED if symptoms worsen. Patient understood and agrees with the plan of care. . 12/28 16:41 Order name: Acetaminophen; Complete Time: 17:35 [facility] 12/28 16:41 Order name: Basic Metabolic Panel; Complete Time: 17:35 [facility] 12/28 16:41 Order name: CBC with Diff; Complete Time: 17:35 [facility] 12/28 16:41 Order name: ETOH Level; Complete Time: 17:35 [facility] 12/28 16:41 Order name: Hepatic Function; Complete Time: 17:35 [facility] 12/28 16:41 Order name: PT-INR; Complete Time: 17:35 [facility] 12/28 16:41 Order name: Ptt, Activated; Complete Time: 17:35 [facility] 12/28 16:41 Order name: Salicylate; Complete Time: 17:51 [facility] 12/28 16:41 Order name: EKG; Complete Time: 16:42 [facility] 12/28 16:41 Order name: EKG - Nurse/Tech; Complete Time: 17:04 [facility] 12/28 16:41 Order name: Dilantin; Complete Time: 17:35 [facility] 12/28 16:41 Order name: IV Saline Lock; Complete Time: 16:53 [facility] 12/28 16:41 Order name: Labs collected and sent; Complete Time: 17:02 [facility] Administered Medications: 17:20 Drug: Fosphenytoin 1 grams Route: IVPB; Site: right antecubital; aa5 17:35 Follow up: Response: No adverse reaction; IV Status: Completed infusion aa5 20:09 Drug: Keppra 1000 mg Route: IV; Rate: calculated rate; Site: right antecubital; rr5 20:31 Follow up: IV Status: Completed infusion; IV Intake: 100ml lp1 Disposition: 12/29 06:56 Co-signature as Attending Physician, Yony Mike MD I agree with the assessment and kdr plan of care. Disposition: 12/28/18 20:44 Discharged to Home. Impression: Epilepsy and recurrent seizures. - Condition is Stable. - Discharge Instructions: Seizure, Adult. - Prescriptions for Keppra 500 mg Oral Tablet - take 1 tablet by ORAL route every 12 hours; 20 tablet. Dilantin Kapseal 100 mg Oral Capsule - take 1 capsule by ORAL route every 8 hours; 30 capsule. - Medication Reconciliation Form, Thank You Letter, Antibiotic Education, Prescription Opioid Use form. - Follow up: Willem Yoder MD; When: 2 - 3 days; Reason: Recheck today's complaints, Continuance of care, Re-evaluation by your physician. Signatures: Dispatcher [employer] EDYony Kuhn MD MD [facility] Benjamin Hercules PA PA jmm Calderon, Audri, RN RN aa5 Wendy Solis RN RN lp1 Navjot Hicks RN RN rr5 Corrections: (The following items were deleted from the chart) 12/28 21:13 20:44 12/28/2018 20:44 Discharged to Home. Impression: Epilepsy and recurrent seizures. lp1 Condition is Stable. Forms are Medication Reconciliation Form, Thank You Letter, Antibiotic Education, Prescription Opioid Use. Follow up: Willem Yoder; When: 2 - 3 days; Reason: Recheck today's complaints, Continuance of care, Re-evaluation by your physician. anitra
--- NOTE | 2018-12-28 20:44 | ER ---
Nurse's Notes [facility] Name: Yonatan Ramos Age: 38 yrs Sex: Male : 1980 Arrival Date: 12/28/2018 Time: 16:23 Bed 16 Private MD: Diagnosis: Epilepsy and recurrent seizures Presentation: 12/28 16:23 Presenting complaint: EMS states: Seizures x 5 tonic clonic, when policed attempted to aa5 apprehend him. EMS gave Ativan 4mg IV. Witnessed 1 seizure for 60 seconds. Transition of care: patient was not received from another setting of care. Onset of symptoms was December 28, 2018. Risk Assessment: Do you want to hurt yourself or someone else? Patient reports no desire to harm self or others. Initial Sepsis Screen: Does the patient meet any 2 criteria? No. Patient's initial sepsis screen is negative. Does the patient have a suspected source of infection? No. Patient's initial sepsis screen is negative. Care prior to arrival: None. 16:23 Method Of Arrival: EMS: [facility] aa5 16:23 Acuity: ANDREAS 2 aa5 Triage Assessment: 16:26 General: Appears in no apparent distress. comfortable, Behavior is calm, cooperative, aa5 appropriate for age. Pain: Denies pain. Neuro: Level of Consciousness is awake, alert, obeys commands, Oriented to person, place, time, situation, Appropriate for age. Neuro: Seizure activity reported prior to arrival. Type of seizure: tonic seizure. Seizure lasted approximately 1 minutes. Respiratory: Airway is patent Respiratory effort is even, unlabored, Respiratory pattern is regular, symmetrical. Derm: Skin is intact, is healthy with good turgor, Skin is pink, warm \\T\\ dry. normal. Historical: - Allergies: 16:26 No Known Allergies; aa5 - Home Meds: 16:26 Dilantin Oral 300 mg twice a day [Active]; Keppra Oral [Active]; aa5 - PMHx: 16:26 Chronic pain; Diabetes - IDDM; Back pain; Nerve damage; Seizures; aa5 - PSHx: 16:26 right kidney surgery; Lithotripsy; aa5 - Immunization history:: Adult Immunizations up to date. - Social history:: Smoking status: Patient/guardian denies using tobacco. - Ebola Screening: : Patient negative for fever greater than or equal to 101.5 degrees Fahrenheit, and additional compatible Ebola Virus Disease symptoms Patient denies exposure to infectious person Patient denies travel to an Ebola-affected area in the 21 days before illness onset No symptoms or risks identified at this time. Screenin:45 Abuse screen: Denies threats or abuse. Nutritional screening: No deficits noted. aa5 Tuberculosis screening: No symptoms or risk factors identified. Fall Risk Fall in past 12 months (25 points). Secondary diagnosis (15 points) seizures, IV access (20 points). Mental Status- Overestimates/Forgets Limitations (15 pts.). Total [place] Fall Scale indicates High Risk Score (45 or more points). Fall prevention measures have been instituted. Side Rails Up X 2 Placed Close to Nursing Station. Assessment: 16:30 General: Appears comfortable, Behavior is calm, cooperative. Pain: Complains of pain in aa5 forehead and left hindu Pain does not radiate. Pain currently is 8 out of 10 on a pain scale. Quality of pain is described as aching, Is continuous. Neuro: Level of Consciousness is resting with eyes closed, easy to arouse to verbal stimuli . Oriented to person, place, time, situation, Processor Grain are equal bilaterally Moves all extremities. Speech is normal, Facial symmetry appears normal, Pupils are PERRLA. Cardiovascular: Heart tones S1 S2 present Rhythm is regular. Respiratory: Airway is patent Respiratory effort is even, unlabored, Respiratory pattern is regular, symmetrical, Breath sounds are clear bilaterally. GI: Abdomen is round Bowel sounds present X 4 quads. Abd is soft and non tender X 4 quads. : No signs and/or symptoms were reported regarding the genitourinary system. EENT: No signs and/or symptoms were reported regarding the EENT system. Derm: Skin is pink, warm \\T\\ dry. Abrasion noted to left hindu. Musculoskeletal: Range of motion: intact in all extremities. 16:30 Reassessment: Pt states "I don't take the Keppra and dilantin like I am supposed to [facility] because I can't afford it and I have to share the meds with my mom and she need it more than I do". Pt reports he has not taken home meds in about 8 days. . 17:05 Reassessment: Awaiting fosphenytoin from pharmacy. aa5 17:30 Reassessment: Pt resting in bed with eyes closed, easy to awaken to verbal stimuli. aa5 alert and oriented x 4, equal unlabored respirations, skin is pink/warm/dry. 18:30 Reassessment: Pt resting in bed with eyes closed, respirations even and unlabored, skin aa5 is pink/warm/dry. 19:15 Reassessment: Patient is alert, oriented x 3, equal unlabored respirations, skin lp1 warm/dry/pink. Neuro: Reports headache. Cardiovascular: Patient's skin is warm and dry. Respiratory: Respiratory effort is even, unlabored. Derm: abrasion to left side of forehead. 20:12 Reassessment: Patient and/or family updated on plan of care and expected duration. Pain lp1 level reassessed. Patient resting, eyes closed, respirations unlabored. 20:59 Reassessment: Patient is alert, oriented x 3, equal unlabored respirations, skin lp1 warm/dry/pink. Patient aware of discharge; waiting for cab for ride home. Neuro: Gait is steady. Vital Signs: 16:26 BP 113 / 78; Pulse 113; Resp 19; Temp 98.6; Pulse Ox 95% on R/A; Weight 95.25 kg; aa5 Height 5 ft. 8 in. (172.72 cm); 17:00 BP 109 / 80; Pulse 109; Resp 18 S; Pulse Ox 100% on 2 lpm NC; aa5 17:30 BP 108 / 75; Pulse 90; Resp 16 S; Pulse Ox 100% on 2 lpm NC; aa5 18:30 BP 97 / 69; Pulse 80; Resp 18 S; Pulse Ox 100% on R/A; aa5 19:15 BP 98 / 78; Pulse 69; Resp 18; Pulse Ox 98% on R/A; Pain 5/10; lp1 20:00 BP 102 / 68; Pulse 73; Resp 18; Pulse Ox 97% on R/A; lp1 20:59 BP 110 / 73; Pulse 74; Resp 18; Temp 98.1(O); Pulse Ox 98% on R/A; lp1 16:26 Body Mass Index 31.93 (95.25 kg, 172.72 cm) aa5 [place] Coma Score: 16:26 Eye Response: spontaneous(4). Verbal Response: oriented(5). Motor Response: obeys aa5 commands(6). Total: 15. ED Course: 16:23 Patient arrived in ED. aa5 16:25 Triage completed. aa5 16:26 Arm band placed on left wrist. Patient placed in an exam room. aa5 16:30 Brenda Benedict, RN is Primary Nurse. aa5 16:30 Seizure precautions initiated. aa5 16:30 Patient has correct armband on for positive identification. Bed in low position. Call aa5 light in reach. Side rails up X2. vehicle monitor technician on. Pulse ox on. NIBP on. 16:41 Benjamin Hercules PA is PHCP. [facility] 16:41 Yony Mike MD is Attending Physician. [facility] 17:02 Initial lab(s) drawn, by me, sent to lab. em1 17:16 EKG done, by ag equipment field service technician. reviewed by Benjamin MARTIN. 3 17:34 No provider procedures requiring assistance completed. aa5 19:01 Report given to NABILA Nguyen. aa5 20:44 Willem Yoder MD is Referral Physician. [facility] 21:01 IV discontinued, No redness/swelling at site. Pressure dressing applied, 18g IV to R AC lp1 DC'd. Administered Medications: 17:20 Drug: Fosphenytoin 1 grams Route: IVPB; Site: right antecubital; aa5 17:35 Follow up: Response: No adverse reaction; IV Status: Completed infusion aa5 20:09 Drug: Keppra 1000 mg Route: IV; Rate: calculated rate; Site: right antecubital; rr5 20:31 Follow up: IV Status: Completed infusion; IV Intake: 100ml lp1 Intake: 20:31 IV: 100ml; Total: 100ml. lp1 Outcome: 20:44 Discharge ordered by . [facility] 21:02 Discharged to home lp1 21:02 Condition: good 21:02 Discharge instructions given to patient, Instructed on discharge instructions, follow up and referral plans. medication usage, Demonstrated understanding of instructions, follow-up care, medications, Prescriptions given X 2. 21:13 Patient left the ED. lp1 Signatures: Benjamin Hercules PA PA jmm Martinez, Eric em1 Brenda Benedict RN RN [facility] Wendy Solis RN RN lp1 Magaly Weiss sm3 Navjot Hicks, RN RN rr5 Corrections: (The following items were deleted from the chart) 16:20 General: Appears comfortable, Behavior is calm, cooperative, aa5 aa5 16:20 Pain: Complains of pain in forehead and left hindu Pain does not radiate. Pain aa5 currently is 8 out of 10 on a pain scale. Quality of pain is described as aching, Is continuous, aa5 16:20 Neuro: Level of Consciousness is resting with eyes closed, easy to arouse to aa5 verbal stimuli . Oriented to person, place, time, situation, Processor Grain are equal bilaterally Moves all extremities. Speech is normal, Facial symmetry appears normal, Pupils are PERRLA, aa5 16:20 Cardiovascular: Heart tones S1 S2 present Rhythm is regular aa5 aa5 16:20 Respiratory: Airway is patent Respiratory effort is even, unlabored, Respiratory aa5 pattern is regular, symmetrical, Breath sounds are clear bilaterally. aa5 16:20 GI: Abdomen is round Bowel sounds present X 4 quads. Abd is soft and non tender X aa5 4 quads. aa5 : 16:20 : No signs and/or symptoms were reported regarding the genitourinary system. aa5aa5 : 16:20 EENT: No signs and/or symptoms were reported regarding the EENT system. aa5 aa5 16:20 Derm: Skin is pink, warm \\T\\ dry. Abrasion noted to left hindu aa5 aa5 16:20 Musculoskeletal: Range of motion: intact in all extremities, aa5 aa5 21:13 21:01 IV discontinued, No redness/swelling at site. Pressure dressing applied, lp1 lp1
--- NOTE | 2018-12-29 08:40 | EKG ---
Test Date: 2018-12-28 Test Time: 17:03:24 Television Engineering Teacher: BEENA MEASUREMENT RESULTS: Intervals: Rate: 103 AR: 128 QRSD: 84 QT: 320 QTc: 419 [place]: P: 51 AR: 128 QRS: 64 T: 36 INTERPRETIVE STATEMENTS: Sinus tachycardia Otherwise normal ECG Compared to ECG 10/18/2018 11:26:46 Sinus rhythm no longer present ST (T wave) deviation no longer present Electronically Signed On 12-29-18 08:39:49 CDT by Mahad Whitney
== END 2018-12-28 21:13 | disposition home or self-care (01) ==
LOC: ER 16:22
DX: G40.909 Epilepsy, unspecified, not intractable, without status epilepticus (principal)
CPT/HCPCS: 36415; 80048; 80076; 80185; 80320; 80329; 85025; 85610; 85730; 93005; 96365; 99284; J1953; Q2009

== ENCOUNTER 2019-01-15 08:53 | Emergency (ER) | payer SELFPAY ==
--- OUTSIDE RECORDS SUMMARY | 2019-01-15 08:56 | XMS REPORT ---
:1980 [facility] Address [address] [place] [address] [address] [place] [address] Care Team Providers Name Role Phone MISSY JONES Unavailable Unavailable Problems This patient has no known problems. Allergies, Adverse Reactions, Alerts This patient has no known allergies or adverse reactions. Medications This patient has no known medications. Encounters Start End Encounter Admission Attending Care Care Encounter Date/Time Date/Time Type Type Clinicians Facility Department ID 2018-09-04 2018-09-04 Emergency [facility] MED [id number] 19:56:41 19:56:41 Results Test Description Test Time Test Comments Text Results Atomic Results Result Comments BASIC METABOLIC PANEL 2018-02-24 03:44:00 Test Item Value Reference Range Comments SODIUM (BEAKER) (test 142 meq/L 136-145 bfiy=648) POTASSIUM (BEAKER) (test 3.8 meq/L 3.5-5.1 ggdd=082) CHLORIDE (BEAKER) (test 112 meq/L 98-107 jabz=803) CO2 (BEAKER) (test 24 meq/L 22-29 qvzz=129) BLOOD UREA NITROGEN 9 mg/dL 7-21 (BEAKER) (test kivf=077) CREATININE (BEAKER) (test 0.80 mg/dL 0.57-1.25 qniz=714) GLUCOSE RANDOM (BEAKER) 94 mg/dL 70-105 (test qosi=965) CALCIUM (BEAKER) (test 9.1 mg/dL 8.4-10.2 dwmf=032) EGFR (BEAKER) (test 108 mL/min/1.73 sq m ESTIMATED GFR IS NOT maeb=9730) ACCURATE CREATININE CLEARANCE IN PREDICTING GLOMERULAR FILTRATION RATE. ESTIMATED GFR IS NOT APPLICABLE FOR DIALYSIS PATIENTS. CBC W/PLT COUNT & AUTO [id number] 03:21:00 Test Item Value Reference Range Comments WHITE BLOOD CELL COUNT (BEAKER) (test ogzu=916) 11.9 K/ L 3.5-10.5 RED BLOOD CELL COUNT (BEAKER) (test datp=279) 4.55 M/ L 4.63-6.08 HEMOGLOBIN (BEAKER) (test ffwr=726) 13.0 GM/DL 13.7-17.5 HEMATOCRIT (BEAKER) (test jdzn=058) 38.6 % 40.1-51.0 MEAN CORPUSCULAR VOLUME (BEAKER) (test pbzy=178) 84.8 fL 79.0-92.2 MEAN CORPUSCULAR HEMOGLOBIN (BEAKER) (test 28.6 pg 25.7-32.2 mmit=954) MEAN CORPUSCULAR HEMOGLOBIN CONC (BEAKER) (test 33.7 GM/DL 32.3-36.5 ptyh=128) RED CELL DISTRIBUTION WIDTH (BEAKER) (test 12.6 % 11.6-14.4 dobi=670) PLATELET COUNT (BEAKER) (test sbdh=244) 273 K/CU MM 150-450 MEAN PLATELET VOLUME (BEAKER) (test epbe=543) 8.8 fL 9.4-12.4 NUCLEATED RED BLOOD CELLS (BEAKER) (test 0 /100 WBC 0-0 ilua=764) NEUTROPHILS RELATIVE PERCENT (BEAKER) (test 58 % kgyu=164) LYMPHOCYTES RELATIVE PERCENT (BEAKER) (test 31 % dilj=138) MONOCYTES RELATIVE PERCENT (BEAKER) (test 8 % etfj=938) EOSINOPHILS RELATIVE PERCENT (BEAKER) (test 1 % kcms=292) BASOPHILS RELATIVE PERCENT (BEAKER) (test 1 % lsyg=822) NEUTROPHILS ABSOLUTE COUNT (BEAKER) (test 6.96 K/ L 1.78-5.38 bnzs=234) LYMPHOCYTES ABSOLUTE COUNT (BEAKER) (test 3.73 K/ L 1.32-3.57 jiay=640) MONOCYTES ABSOLUTE COUNT (BEAKER) (test 0.99 K/ L 0.30-0.82 fnvk=393) EOSINOPHILS ABSOLUTE COUNT (BEAKER) (test 0.15 K/ L 0.04-0.54 sbtd=827) BASOPHILS ABSOLUTE COUNT (BEAKER) (test 0.06 K/ L 0.01-0.08 nysv=248) IMMATURE GRANULOCYTES-RELATIVE PERCENT (BEAKER) 0 % 0-1 (test dueh=1554)
--- OUTSIDE RECORDS SUMMARY | 2019-01-15 08:56 | XMS REPORT | Clinical Summary ---
:1980 Author Organization [facility] Address [facility] [place] [address] Care Team Providers Name Role Phone Unavailable [...] Seizure ( Primary Dx) 09/04/2018 Travel after 01/14/2018 Social History Tobacco Use Types Packs/Day Years Used Date Never Assessed Sex Assigned at Date Recorded Not on file Job Start Date Occupation Industry Not on file Not on file Not on file Travel History Travel Start Travel End No recent travel history available. Last Filed Vital Signs Vital Sign Reading Time Taken Comments Blood Pressure 104/69 09/04/2018 11:00 PM [employer] Pulse 87 09/04/2018 11:00 PM [employer] Temperature 36.6 C (97.9 F) 09/04/2018 11:00 PM [employer] Respiratory Rate 18 09/04/2018 11:00 PM [employer] Oxygen Saturation 96% 09/04/2018 11:00 PM [employer] Inhaled Oxygen Concentration - - Weight - - Height - - Body Mass Index - - Plan of Treatment Health Maintenance Due Date Last Done Comments IMM Influenza Seasonal May to September (>/=19 yrs) 05/01/2019 Procedures Procedure Name Priority Date/Time Associated Diagnosis Comments 12 LEAD EKG Routine 09/04/2018 8:49 PM Seizure Results for this [employer] procedure are in the results section. after 01/14/2018 Results 12 LEAD EKG (09/04/2018 8:49 PM [employer]) [facility] 12 LEAD EKG FOR [facility] SMS Test Date:2018-09-04 Pat Name: YONATAN Arevalopartment: [id number] : Gender: Vitor [employer] Operator: [id number] :1980 Requested By: ROGELIO Jaeger Order Number: [id number] MD: Lavon Villarreal M.D. Measurements IntervalsAxis Rate: 108P: 34 AK: 131QRS: 57 QRSD: 92 T: 35 QT: 327 QTc:438 Interpretive Statements SINUS TACHYCARDIA ABNORMAL RHYTHM ECG Reviewed by Electronically Signed On 09-05-2018 4:34:05 [employer] by Lavon Villarreal M.D. Specimen Performing Organization Address City/State/Zipcode Phone Number SMS after 01/14/2018 Insurance Payer Benefit Plan / Subscriber ID Effective Dates Phone Address Type Group HD SELF-PAY xxxxxxxxx 2018-[facility] [phone] [address] SELF-PAY UNSCREENED t [address] [place] [address]
--- OUTSIDE RECORDS SUMMARY | 2019-01-15 08:56 | XMS REPORT | Clinical Summary ---
:1980 Author Organization [facility] Address [address] [place] [address] Care Team Providers Name Role Phone Unavailable [...] Faby Walker Seizure (HCC) MD Sylvie after 01/14/2018 Social History Tobacco Use Types [...] in the results section. after 01/14/2018 Results RHYTHM STRIP - SCAN (02/28/2018 7:30 AM CDT) Narrative Performed At CBC with platelet count + automated diff (02/24/2018 3:06 AM CDT) WBC 11.9 (H) 3.5 - 10.5 K/L [facility] RBC 4.55 (L) 4.63 - 6.08 M/L [facility] Hemoglobin 13.0 (L) 13.7 - 17.5 GM/DL [facility] Hematocrit 38.6 (L) 40.1 - 51.0 % [facility] MCV 84.8 79.0 - 92.2 fL [facility] MCH 28.6 25.7 - 32.2 pg [facility] MCHC 33.7 32.3 - 36.5 GM/DL [facility] RDW 12.6 11.6 - 14.4 % [facility] Platelets 273 150 - 450 K/CU MM [facility] MPV 8.8 (L) 9.4 - 12.4 fL [facility] nRBC 0 0 - 0 /100 WBC [facility] % Neutros 58 % [facility] % Lymphs 31 % [facility] % Monos 8 % [facility] % Eos 1 % [facility] % Baso 1 % [facility] # Neutros 6.96 (H) 1.78 - 5.38 K/L [facility] # Lymphs 3.73 (H) 1.32 - 3.57 K/L [facility] # Monos 0.99 (H) 0.30 - 0.82 K/L [facility] # Eos 0.15 0.04 - 0.54 K/L [facility] # Baso 0.06 0.01 - 0.08 K/L [facility] Immature Granulocytes-Relative 0 0 - 1 % [facility] Specimen Blood Performing Organization Address City/State/Zipcode Phone Number [facility] [address] [place] [address] CENTER Basic Metabolic Panel (02/24/2018 3:06 AM CDT) Sodium 142 136 - 145 meq/L [facility] Potassium 3.8 3.5 - 5.1 meq/L [facility] Chloride 112 (H) 98 - 107 meq/L [facility] CO2 24 22 - 29 meq/L [facility] BUN 9 7 - 21 mg/dL [facility] Creatinine 0.80 0.57 - 1.25 mg/dL [facility] Glucose 94 70 - 105 mg/dL [facility] Calcium 9.1 8.4 - 10.2 mg/dL [facility] EGFR 108Comment: ESTIMATED GFR IS mL/min/1.73 sq m [facility] NOT ACCURATE [facility] CLEARANCE IN PREDICTING GLOMERULAR FILTRATION RATE. ESTIMATED GFR IS NOT APPLICABLE FOR DIALYSIS PATIENTS. Specimen Blood Performing Organization Address City/State/Zipcode Phone Number [facility] [phone] [place] [address] CENTER after 01/14/2018 Advance Directives For more information, please contact:[address] [phone] Code Status Date Activated Date Inactivated Comments Full Code 02/24/2018 2:36 AM 02/24/2018 10:43 AM This code status was determined by: Patient
[2019-01-15] MEDS ORDERED: MORPHINE 2 MG/ML SYR ONE (09:25)
[2019-01-15] MEDS ORDERED: MORPHINE 4 MG/ML SYR ONE (09:25)
[2019-01-15] MEDS ORDERED: ONDANSETRON 4 MG/2 ML VIAL ONE (09:25)
[2019-01-15 09:40] LABS: Absolute Lymphocytes (CBC) 2.6 K/uL (0.7-4.9); Basophils % 0.8 % (0-1.3); Eosinophils % 1.6 % (0-4.4); Hematocrit 42.9 % (39.6-49.0); Lymphocytes % 22.3 % (15.3-44.8); MPV 7.7 fL (7.6-11.3); Monocytes % 7.2 % (3.3-12.3); RBC Red Blood Cell Count 5.11 M/uL (4.33-5.43)
--- NOTE | 2019-01-15 09:49 | RAD REPORT ---
EXAM DESCRIPTION: CT - Stone Protocol - 01/15/2019 9:28 am CLINICAL HISTORY: Abdominal pain. Left flank pain COMPARISON: 2012 TECHNIQUE: Computed axial tomography of the abdomen pelvis was obtained without oral or IV contrast. Lack of IV and oral contrast limits evaluation of solid organs, bowel, and vessels. Coronal reformat ly images were obtained and reviewed. All CT scans are performed using dose optimization technique as appropriate and may include automated exposure control or mA/KV adjustment according to patient size. FINDINGS: Small left renal calculi without hydronephrosis. A left renal calculus is not seen. Mild left hydronephrosis. A 5 millimeter calculus proximal left ur eter. Hounsfield unit 807. The liver, spleen, pancreas and adrenals appear grossly normal There is no evidence of diverticulitis. The appendix appears normal Small inguinal hernias contain fat. Small umbilical hernia IMPRESSION: A 5 millimeter calculus proximal left ureter resulting in mild left hydronephrosis
[2019-01-15 09:55] LABS: ALT/SGPT 23 U/L (12-78); AST/SGOT 13 U/L (15-37); Albumin 4.1 g/dL (3.4-5.0); Alkaline Phosphatase 93 U/L (45-117); BUN Blood Urea Nitrogen 10 mg/dL (7-18); Bicarbonate 26 mmol/L (21-32); Bilirubin Direct < 0.1 mg/dL (0-0.2); Bilirubin Total 0.3 mg/dL (0.2-1.0); Glucose Level 114 mg/dL (74-106); Lipase 656 U/L (73-393); Potassium 4.2 mmol/L (3.5-5.1); Protein, Total 7.9 g/dL (6.4-8.2); Sodium Level 142 mmol/L (136-145)
[2019-01-15] MEDS ORDERED: TAMSULOSIN 0.4 MG SR CAP ONE (10:23)
[2019-01-15] MEDS ORDERED: KETOROLAC 30 MG/ML INJ ONE (10:24)
[2019-01-15] MEDS ORDERED: MAGNESIUM SULFATE 1 gm IVPB 1 GM/100 ML BAG IV ONE (10:24)
[2019-01-15 11:14] LABS: Urine Blood 2+ (NEG); Urine Glucose NEGATIVE (NEG); Urine Protein NEGATIVE (NEG); Urine pH 6.5 (5.0-7.0)
--- NOTE | 2019-01-15 11:16 | ER ---
Nurse's Notes [facility] Name: Yonatan Ramos Age: 38 yrs Sex: Male : 1980 Arrival Date: 01/15/2019 Time: 08:57 Bed 5 Private MD: Kuashik Castano E Diagnosis: Ureterolithiasis Presentation: 01/15 09:02 Presenting complaint: Patient states: i woke up at 530 and started having left side and tw2 left flank pain. Transition of care: patient was not received from another setting of care. Onset of symptoms was January 15, 2019. Risk Assessment: Do you want to hurt yourself or someone else? Patient reports no desire to harm self or others. Initial Sepsis Screen: Does the patient meet any 2 criteria? No. Patient's initial sepsis screen is negative. Does the patient have a suspected source of infection? No. Patient's initial sepsis screen is negative. Care prior to arrival: None. 09:02 Method Of Arrival: Wheelchair tw2 09:02 Acuity: ANDREAS 3 tw2 Triage Assessment: 09:03 General: Appears uncomfortable, Behavior is cooperative, appropriate for age. Pain: tw2 Complains of pain in posterior aspect of left lateral abdomen and left lower quadrant. Musculoskeletal: Range of motion: intact in all extremities. Historical: - Allergies: 09:04 No Known Allergies; tw2 - Home Meds: 09:04 Dilantin Oral 300 mg twice a day [Active]; Keppra Oral [Active]; tw2 - PMHx: 09:04 Nerve damage; Seizures; Diabetes - IDDM; Chronic pain; Back pain; tw2 - PSHx: 09:04 Lithotripsy; right kidney surgery; tw2 - Immunization history:: Adult Immunizations. - Social history:: Smoking status: . - Ebola Screening: : Patient denies travel to an Ebola-affected area in the 21 days before illness onset. - Family history:: not pertinent. - Hospitalizations: : No recent hospitalization is reported. Screenin:43 Abuse screen: Denies threats or abuse. Nutritional screening: No deficits noted. tw2 Tuberculosis screening: No symptoms or risk factors identified. Fall Risk None identified. Assessment: 09:00 General: Appears uncomfortable, Behavior is cooperative, appropriate for age. Pain: tw2 Complains of pain in abdomen and left lower quadrant. Neuro: Level of Consciousness is awake, alert, obeys commands, Oriented to person, place, time, situation. Cardiovascular: Heart tones S1 S2 Patient's skin is warm and dry. Respiratory: Airway is patent Respiratory effort is even, unlabored, Respiratory pattern is regular, symmetrical, Breath sounds are clear bilaterally. GI: Abdomen is flat, Bowel sounds present X 4 quads. GI: Reports lower abdominal pain. : No signs and/or symptoms were reported regarding the genitourinary system. EENT: No signs and/or symptoms were reported regarding the EENT system. Derm: No signs and/or symptoms reported regarding the dermatologic system. Musculoskeletal: Range of motion: intact in all extremities. 10:14 Reassessment: Patient appears in no apparent distress at this time. Patient and/or tw2 family updated on plan of care and expected duration. Pain level reassessed. Patient is alert, oriented x 3, equal unlabored respirations, skin warm/dry/pink. Patient states feeling better. 11:13 Reassessment: Patient appears in no apparent distress at this time. Patient and/or tw2 family updated on plan of care and expected duration. Pain level reassessed. Patient is alert, oriented x 3, equal unlabored respirations, skin warm/dry/pink. Patient states feeling better. Patient states symptoms have improved. Vital Signs: 09:04 BP 117 / 76; Pulse 72; Resp 20; Temp 99(TE); Pulse Ox 99% on R/A; Weight 88.45 kg (M); tw2 Height 5 ft. 6 in. (167.64 cm); Pain 10/10; 10:14 BP 119 / 66; Pulse 62; Resp 17; Pulse Ox 96% on R/A; tw2 11:12 BP 119 / 94; Pulse 63; Resp 17; Pulse Ox 97% ; Pain 6/10; tw2 09:04 Body Mass Index 31.47 (88.45 kg, 167.64 cm) tw2 ED Course: 08:57 Patient arrived in ED. mr 08:57 Kaushik Castano MD is Private Physician. mr 08:57 Bed in low position. Call light in reach. tw2 08:59 Hemal Montgomery MD is Attending Physician. rn 09:02 Radha Carolina RN is Primary Nurse. tw2 09:02 Triage completed. tw2 09:02 Arm band placed on. tw2 09:14 Missed attempt(s): 20 gauge in right antecubital area. per [employer]. Bleeding tw2 controlled, band aid applied, catheter tip intact. 09:16 Inserted saline lock: 22 gauge in right antecubital area, using aseptic technique. tw2 Blood collected. 09:24 CT completed. Patient tolerated procedure well. Patient moved to CT via wheelchair. jg6 Patient moved back from CT. 09:29 CT Stone Protocol In Process Unspecified. EDMS 11:15 Hever Saleh MD is Referral Physician. rn 11:21 No provider procedures requiring assistance completed. IV discontinued, intact, tw2 bleeding controlled, No redness/swelling at site. Pressure dressing applied. Administered Medications: 09:16 Drug: Zofran 4 mg Route: IVP; Site: right antecubital; tw2 10:14 Follow up: Response: No adverse reaction tw2 09:20 Drug: morphine 5 mg Route: IVP; Site: right antecubital; tw2 10:14 Follow up: Response: No adverse reaction; Pain is decreased tw2 10:13 Drug: TORadol - Ketorolac 15 mg Route: IVP; Site: right antecubital; tw2 11:12 Follow up: Response: No adverse reaction; Pain is decreased tw2 10:13 Drug: Flomax 0.4 mg Route: PO; tw2 11:12 Follow up: Response: No adverse reaction tw2 10:13 Drug: Magnesium Sulfate 1 grams Route: IVPB; Infused Over: 1 hrs; Site: right tw2 antecubital; 11:12 Follow up: Response: No adverse reaction; IV Status: Completed infusion tw2 Outcome: 11:15 Discharge ordered by . rn 11:21 Discharged to home ambulatory. tw2 11:21 Condition: stable 11:21 Discharge instructions given to patient, Instructed on discharge instructions, follow up and referral plans. no drinking with medication, no driving heavy equipment, medication usage, Demonstrated understanding of instructions, follow-up care, medications, Prescriptions given X 4. 11:22 Patient left the ED. tw2 Signatures: Dispatcher [employer] EDNJ Kamini Murillo Roman, MD MD rn Wise, Tara, RN RN tw2 Ela Vila jg6 Corrections: (The following items were deleted from the chart) 09:10 09:04 Pulse 72bpm; Resp 20bpm; Pulse Ox 99% RA; Temp 99F Temporal; 88.45 kg Measured; tw2 Height 5 ft. 6 in.; BMI: 31.4; Pain 05/10; tw2 11:13 11:13 Reassessment: Patient appears in no apparent distress at this time. Patient tw2 and/or family updated on plan of care and expected duration. Pain level reassessed. Patient is alert, oriented x 3, equal unlabored respirations, skin warm/dry/pink. tw2
--- NOTE | 2019-01-15 11:16 | EDPHYS ---
Physician Documentation [facility] Name: Yonatan Ramos Age: 38 yrs Sex: Male : 1980 Arrival Date: 01/15/2019 Time: 08:57 Bed 5 Private MD: Kaushik Castano E ED Physician Hemal Montgomery HPI: 01/15 09:04 This 38 yrs old Male presents to ER via Wheelchair with complaints of Back rn Pain, Abdominal Pain. 09:04 The patient presents with pain that is acute, with no known mechanism of injury. The rn symptoms are located in the low back. Onset: The symptoms/episode began/occurred this morning. The pain radiates to the abdomen. Associated signs and symptoms: Pertinent positives: nausea, Pertinent negatives: chest pain, constipation, dysuria, fever, hematuria, incontinence, nausea, numbness, tingling, urinary retention. Modifying factors: The patient symptoms are alleviated by nothing, the patient symptoms are aggravated by movement. Severity of symptoms: At their worst the symptoms were moderate, in the emergency department the symptoms are unchanged. The patient has experienced a previous episode. Reports left back/flank pain that radiates around to left abdomen, assoc with nausea, no hematuria or urinary symptoms, has had kidney stones before, denies trauma. Began acutely this AM.. Historical: - Allergies: 09:04 No Known Allergies; tw2 - Home Meds: 09:04 Dilantin Oral 300 mg twice a day [Active]; Keppra Oral [Active]; tw2 - PMHx: 09:04 Nerve damage; Seizures; Diabetes - IDDM; Chronic pain; Back pain; tw2 - PSHx: 09:04 Lithotripsy; right kidney surgery; tw2 - Immunization history:: Adult Immunizations. - Social history:: Smoking status: . - Ebola Screening: : Patient denies travel to an Ebola-affected area in the 21 days before illness onset. - Family history:: not pertinent. - Hospitalizations: : No recent hospitalization is reported. ROS: 09:04 Constitutional: Negative for fever, chills, and weight loss, Eyes: Negative for injury, rn pain, redness, and discharge, Neck: Negative for injury, pain, and swelling, Cardiovascular: Negative for chest pain, palpitations, and edema, Respiratory: Negative for shortness of breath, cough, wheezing, and pleuritic chest pain, Abdomen/GI: + abd pain and nausea Back: + left flank pain : Negative for injury, bleeding, discharge, and swelling, MS/Extremity: Negative for injury and deformity, Skin: Negative for injury, rash, and discoloration, Neuro: Negative for headache, weakness, numbness, tingling, and seizure. Exam: 09:04 Constitutional: This is a well developed, well nourished patient who is awake, alert, rn appears uncomfortable, writhing Head/Face: Normocephalic, atraumatic. Eyes: Pupils equal round and reactive to light, extra-ocular motions intact. Lids and lashes normal. Conjunctiva and sclera are non-icteric and not injected. Cornea within normal limits. Periorbital areas with no swelling, redness, or edema. ENT: MMM Respiratory: MIld tachypnea, no retractions Abdomen/GI: soft, + tender LLQ, no rebound Back: No spinal tenderness. No costovertebral tenderness. Full range of motion. Skin: Warm, dry, no evidence of cellulitis MS/ Extremity: Pulses equal, no cyanosis. Neurovascular intact. Full, normal range of motion. Equal circumference. Neuro: Awake and alert, GCS 15, oriented to person, place, time, and situation. Cranial nerves II-XII grossly intact. Motor strength 5/5 in all extremities. Sensory grossly intact. Cerebellar exam normal. Vital Signs: 09:04 BP 117 / 76; Pulse 72; Resp 20; Temp 99(TE); Pulse Ox 99% on R/A; Weight 88.45 kg (M); tw2 Height 5 ft. 6 in. (167.64 cm); Pain 10/10; 10:14 BP 119 / 66; Pulse 62; Resp 17; Pulse Ox 96% on R/A; tw2 11:12 BP 119 / 94; Pulse 63; Resp 17; Pulse Ox 97% ; Pain 6/10; tw2 09:04 Body Mass Index 31.47 (88.45 kg, 167.64 cm) tw2 MDM: 08:59 Patient medically screened. rn 09:58 Differential diagnosis: Ureterolithiasis non-specific abd pain. Data reviewed: vital rn signs, nurses notes, lab test result(s), radiologic studies. Counseling: I had a detailed discussion with the patient and/or guardian regarding: the historical points, exam findings, and any diagnostic results supporting the discharge/admit diagnosis, lab results, radiology results. Response to treatment: the patient's symptoms have markedly improved after treatment. 01/15 09:04 Order name: Basic Metabolic Panel rn 01/15 09:04 Order name: CBC with Diff rn 01/15 09:04 Order name: Hepatic Function; Complete Time: 10:12 01/15 09:04 Order name: Lipase; Complete Time: 10:12 rn 01/15 09:07 Order name: Basic Metabolic Panel; Complete Time: 10:12 EDMS 01/15 09:07 Order name: CBC with Automated Diff; Complete Time: 09:51 EDMS 01/15 09:04 Order name: CT Stone Protocol; Complete Time: 09:51 rn 01/15 10:11 Order name: Urine Microscopic Only 01/15 11:03 Order name: Urine Dipstick--Ancillary (enter results) 01/15 09:04 Order name: IV Saline Lock; Complete Time: 09:22 rn 01/15 09:04 Order name: Labs collected and sent; Complete Time: 09:22 rn 01/15 10:11 Order name: Urine Dipstick-Ancillary (obtain specimen); Complete Time: 11:14 rn Administered Medications: 09:16 Drug: Zofran 4 mg Route: IVP; Site: right antecubital; tw2 10:14 Follow up: Response: No adverse reaction tw2 09:20 Drug: morphine 5 mg Route: IVP; Site: right antecubital; tw2 10:14 Follow up: Response: No adverse reaction; Pain is decreased tw2 10:13 Drug: TORadol - Ketorolac 15 mg Route: IVP; Site: right antecubital; tw2 11:12 Follow up: Response: No adverse reaction; Pain is decreased tw2 10:13 Drug: Flomax 0.4 mg Route: PO; tw2 11:12 Follow up: Response: No adverse reaction tw2 10:13 Drug: Magnesium Sulfate 1 grams Route: IVPB; Infused Over: 1 hrs; Site: right tw2 antecubital; 11:12 Follow up: Response: No adverse reaction; IV Status: Completed infusion tw2 Disposition: 01/15/19 11:15 Discharged to Home. Impression: Ureterolithiasis. - Condition is Stable. - Discharge Instructions: Kidney Stones. - Prescriptions for Zofran ODT 4 mg Oral tablet,disintegrating - place 1 tablet by TRANSLINGUAL route every 8 hours As needed; 20 tablet. Ibuprofen 800 mg Oral Tablet - take 1 tablet by ORAL route every 12 hours As needed take with food; 20 tablet. Tylenol- Codeine #3 300-30 mg Oral Tablet - take 1 tablet by ORAL route every 6 hours As needed; 20 tablet. Flomax 0.4 mg Oral Capsule, Sust. Release 24 hr - take 1 capsule by ORAL route once daily 1/2 hour following the same meal each day; 5 capsule. - Medication Reconciliation Form, Thank You Letter, Antibiotic Education, Prescription Opioid Use, Work release form form. - Follow up: Hever Saleh MD; When: As needed; Reason: Recheck today's complaints, Re-evaluation by your physician. - Problem is new. - Symptoms have improved. Signatures: Dispatcher [employer] EDMS Hemal Montgomery MD MD rn Wise, Tara, RN RN tw2 Corrections: (The following items were deleted from the chart) 10:06 09:31 PTT, ACTIVATED+COAG.LAB.BRZ ordered. EDMS EDMS 10:06 09:31 PROTIME (+INR)+COAG.LAB.BRZ ordered. EDOH EDMS 11:22 11:15 01/15/2019 11:15 Discharged to Home. Impression: Ureterolithiasis. Condition is tw2 Stable. Forms are Work release form, Medication Reconciliation Form, Thank You Letter, Antibiotic Education, Prescription Opioid Use. Follow up: Hever Saleh; When: As needed; Reason: Recheck today's complaints, Re-evaluation by your physician. Problem is new. Symptoms have improved. rn
[2019-01-15 11:21] LABS: Urine Bacteria NONE SEEN /HPF (NONE SEEN); Urine Culture Reflex Order NOT NEEDED; Urine RBC <5 /HPF (NONE SEEN)
== END 2019-01-15 11:22 | disposition home or self-care (01) ==
LOC: ER 08:53
DX: N20.1 Calculus of ureter (principal); E11.9 Type 2 diabetes mellitus without complications; G40.909 Epilepsy, unspecified, not intractable, without status epilepticus; Z87.442 Personal history of urinary calculi
CPT/HCPCS: 36415; 74176; 76377; 80048; 80076; 81003; 81015; 83690; 85025; 96365; 96375; 99284; J2270; J2405; J3475

== ENCOUNTER 2019-01-19 12:06 | Day surgery (SDC) | payer SELFPAY ==
--- OUTSIDE RECORDS SUMMARY | 2019-01-19 12:11 | XMS REPORT | Clinical Summary ---
:1980 Author Organization [facility] Address [address] [place] [address] Care Team Providers Name Role Phone Unavailable [...] Faby Walker Seizure (HCC) MD Sylvie after 01/18/2018 Social History Tobacco Use Types Packs/Day Years [...] procedure are in the results section. after 01/18/2018 Results RHYTHM STRIP - SCAN (02/28/2018 7:30 AM CDT) Narrative Performed At CBC with platelet count + automated diff (02/24/2018 3:06 AM CDT) WBC 11.9 (H) 3.5 - 10.5 K/L [facility] RBC 4.55 (L) 4.63 - 6.08 M/L [facility] Hemoglobin 13.0 (L) 13.7 - 17.5 GM/DL [facility] Hematocrit 38.6 (L) 40.1 - 51.0 % [facility] MCV 84.8 79.0 - 92.2 fL [facility] MCH 28.6 25.7 - 32.2 pg [facility] MCHC 33.7 32.3 - 36.5 GM/DL [facility] RDW 12.6 11.6 - 14.4 % [facility] Platelets 273 150 - 450 K/CU MM [facility] MPV 8.8 (L) 9.4 - 12.4 fL [facility] nRBC 0 0 - 0 /100 WBC [facility] % Neutros 58 % [facility] % Lymphs 31 % [facility] % Monos 8 % [facility] % Eos 1 % [facility] % Baso 1 % [facility] # Neutros 6.96 (H) 1.78 - 5.38 K/L [facility] # Lymphs 3.73 (H) 1.32 - 3.57 K/L [facility] # Monos 0.99 (H) 0.30 - 0.82 K/L [facility] # Eos 0.15 0.04 - 0.54 K/L [facility] # Baso 0.06 0.01 - 0.08 K/L [facility] Immature Granulocytes-Relative 0 0 - 1 % [facility] Specimen Blood Performing Organization Address City/State/Zipcode Phone Number [facility] [address] [place] [address] CENTER Basic Metabolic Panel (02/24/2018 3:06 AM CDT) Sodium 142 136 - 145 meq/L [facility] Potassium 3.8 3.5 - 5.1 meq/L [facility] Chloride 112 (H) 98 - 107 meq/L [facility] CO2 24 22 - 29 meq/L [facility] BUN 9 7 - 21 mg/dL [facility] Creatinine 0.80 0.57 - 1.25 mg/dL [facility] Glucose 94 70 - 105 mg/dL [facility] Calcium 9.1 8.4 - 10.2 mg/dL [facility] EGFR 108Comment: ESTIMATED GFR IS mL/min/1.73 sq m [facility] NOT ACCURATE CREATININE [facility] CLEARANCE IN PREDICTING GLOMERULAR FILTRATION RATE. ESTIMATED GFR IS NOT APPLICABLE FOR DIALYSIS PATIENTS. Specimen Blood Performing Organization Address City/State/Zipcode Phone Number [place] [phone] [place] [address] CENTER after 01/18/2018 Advance Directives For more information, please contact:[address] [phone] Code Status Date Activated Date Inactivated Comments Full Code 02/24/2018 2:36 AM 02/24/2018 10:43 AM This code status was determined by: Patient
--- OUTSIDE RECORDS SUMMARY | 2019-01-19 12:11 | XMS REPORT | Clinical Summary ---
:1980 Author Organization [facility] Address [facility] [place] [address] Care Team Providers Name Role Phone Unavailable [...] Seizure ( Primary Dx) 09/04/2018 Travel after 01/18/2018 Social History Tobacco Use Types Packs/Day Years Used Date Never Assessed Sex Assigned at Date Recorded Not on file Job Start Date Occupation Industry Not on file Not on file Not on file Travel History Travel Start Travel End No recent travel history available. Last Filed Vital Signs Vital Sign Reading Time Taken Comments Blood Pressure 104/69 09/04/2018 11:00 PM [employer] Pulse 87 09/04/2018 11:00 PM [employer] Temperature 36.6 C (97.9 F) 09/04/2018 11:00 PM [employer] Respiratory Rate 18 09/04/2018 11:00 PM [employer] Oxygen Saturation 96% 09/04/2018 11:00 PM [employer] Inhaled Oxygen Concentration - - Weight - - Height - - Body Mass Index - - Plan of Treatment Health Maintenance Due Date Last Done Comments IMM Influenza Seasonal May to September (>/=19 yrs) 05/01/2019 Procedures Procedure Name Priority Date/Time Associated Diagnosis Comments 12 LEAD EKG Routine 09/04/2018 8:49 PM Seizure Results for this [employer] procedure are in the results section. after 01/18/2018 Results 12 LEAD EKG (09/04/2018 8:49 PM [employer]) [facility] Signature 12 LEAD EKG FOR [facility] SMS Test Date:2018-09-04 Pat Name: YONATAN Arevalopartment: [id number] : Gender: Vitor Pc Tech: [id number] :1980 Requested By: ROGELIO Jaeger Order Number: [id number] MD: Lavon Villarreal M.D. Measurements IntervalsAxis Rate: 108P: 34 HI: 131QRS: 57 QRSD: 92 T: 35 QT: 327 QTc:438 Interpretive Statements SINUS TACHYCARDIA ABNORMAL RHYTHM ECG Reviewed by Electronically Signed On 09-05-2018 4:34:05 [employer] by Lavon Villarreal M.D. Specimen Performing Organization Address City/State/Zipcode Phone Number SMS after 01/18/2018 Insurance Payer Benefit Plan / Subscriber ID Effective Dates Phone Address Type Group HD SELF-PAY xxxxxxxxx 2018-[facility] [phone] SELF-PAY UNSCREENED t [address] [place] [address]
--- OUTSIDE RECORDS SUMMARY | 2019-01-19 12:12 | XMS REPORT ---
:1980 Author Organization [facility] Address [address] [place] [address] [address] [place] [address] Care Team Providers Name Role Phone MISSY JONES Unavailable Unavailable Problems This patient has no known problems. Allergies, Adverse Reactions, Alerts This patient has no known allergies or adverse reactions. Medications This patient has no known medications. Encounters Start End Encounter Admission Attending Care Care Encounter Date/Time Date/Time Type Type Clinicians Facility Department ID 2018-09-04 2018-09-04 Emergency [facility] MED [id number] 19:56:41 19:56:41 Results Test Description Test Time Test Comments Text Results Atomic Results Result Comments BASIC METABOLIC PANEL 2018-02-24 03:44:00 Test Item Value Reference Range Comments SODIUM (BEAKER) (test 142 meq/L 136-145 hpwl=633) POTASSIUM (BEAKER) (test 3.8 meq/L 3.5-5.1 yiux=741) CHLORIDE (BEAKER) (test 112 meq/L 98-107 btld=814) CO2 (BEAKER) (test 24 meq/L 22-29 sczr=725) BLOOD UREA NITROGEN 9 mg/dL 7-21 (BEAKER) (test nfvg=224) CREATININE (BEAKER) (test 0.80 mg/dL 0.57-1.25 yrxz=090) GLUCOSE RANDOM (BEAKER) 94 mg/dL 70-105 (test hjpl=325) CALCIUM (BEAKER) (test 9.1 mg/dL 8.4-10.2 oswx=807) EGFR (BEAKER) (test 108 mL/min/1.73 sq m ESTIMATED GFR IS NOT ernt=9235) ACCURATE CREATININE CLEARANCE IN PREDICTING GLOMERULAR FILTRATION RATE. ESTIMATED GFR IS NOT APPLICABLE FOR DIALYSIS PATIENTS. CBC W/PLT COUNT & AUTO [id number] 03:21:00 Test Item Value Reference Range Comments WHITE BLOOD CELL COUNT (BEAKER) (test yjtm=154) 11.9 K/ L 3.5-10.5 RED BLOOD CELL COUNT (BEAKER) (test ipxz=532) 4.55 M/ L 4.63-6.08 HEMOGLOBIN (BEAKER) (test wykm=174) 13.0 GM/DL 13.7-17.5 HEMATOCRIT (BEAKER) (test suxb=980) 38.6 % 40.1-51.0 MEAN CORPUSCULAR VOLUME (BEAKER) (test ciqc=626) 84.8 fL 79.0-92.2 MEAN CORPUSCULAR HEMOGLOBIN (BEAKER) (test 28.6 pg 25.7-32.2 ymek=064) MEAN CORPUSCULAR HEMOGLOBIN CONC (BEAKER) (test 33.7 GM/DL 32.3-36.5 gxlj=914) RED CELL DISTRIBUTION WIDTH (BEAKER) (test 12.6 % 11.6-14.4 wngy=178) PLATELET COUNT (BEAKER) (test zcrh=376) 273 K/CU MM 150-450 MEAN PLATELET VOLUME (BEAKER) (test dzdt=438) 8.8 fL 9.4-12.4 NUCLEATED RED BLOOD CELLS (BEAKER) (test 0 /100 WBC 0-0 wrzx=124) NEUTROPHILS RELATIVE PERCENT (BEAKER) (test 58 % qcjs=878) LYMPHOCYTES RELATIVE PERCENT (BEAKER) (test 31 % zhmj=231) MONOCYTES RELATIVE PERCENT (BEAKER) (test 8 % djzw=416) EOSINOPHILS RELATIVE PERCENT (BEAKER) (test 1 % bcsu=367) BASOPHILS RELATIVE PERCENT (BEAKER) (test 1 % xocn=807) NEUTROPHILS ABSOLUTE COUNT (BEAKER) (test 6.96 K/ L 1.78-5.38 ochx=695) LYMPHOCYTES ABSOLUTE COUNT (BEAKER) (test 3.73 K/ L 1.32-3.57 eacu=961) MONOCYTES ABSOLUTE COUNT (BEAKER) (test 0.99 K/ L 0.30-0.82 bthx=368) EOSINOPHILS ABSOLUTE COUNT (BEAKER) (test 0.15 K/ L 0.04-0.54 dkun=697) BASOPHILS ABSOLUTE COUNT (BEAKER) (test 0.06 K/ L 0.01-0.08 vpwx=638) IMMATURE GRANULOCYTES-RELATIVE PERCENT (BEAKER) 0 % 0-1 (test nrln=6844)
[2019-01-19] MEDS ORDERED: MORPHINE 4 MG/ML SYR ONE ×3 (12:39→13:47)
[2019-01-19] MEDS ORDERED: NA CHLORIDE 0.9% 1,000 ML ONE ×2 (12:40→16:28)
[2019-01-19] MEDS ORDERED: ONDANSETRON 4 MG/2 ML VIAL ONE ×2 (12:40→17:03)
[2019-01-19 12:48] LABS: Absolute Lymphocytes (CBC) 2.7 K/uL (0.7-4.9); Basophils % 0.6 % (0-1.3); Eosinophils % 2.2 % (0-4.4); Lymphocytes % 27.2 % (15.3-44.8); MPV 7.7 fL (7.6-11.3); Monocytes % 7.8 % (3.3-12.3); RBC Red Blood Cell Count 4.82 M/uL (4.33-5.43)
[2019-01-19 12:57] LABS: Albumin 3.9 g/dL (3.4-5.0); Bilirubin Direct 0.2 mg/dL (0-0.2); Bilirubin Total 0.5 mg/dL (0.2-1.0); Potassium 3.8 mmol/L (3.5-5.1); Protein, Total 7.4 g/dL (6.4-8.2)
--- NOTE | 2019-01-19 12:57 | RAD REPORT ---
EXAM DESCRIPTION: CT - Stone Protocol - 01/19/2019 12:44 pm CLINICAL HISTORY: Abdominal pain, left flank pain, history kidney stones COMPARISON: CT stone protocol January 15, 2019 TECHNIQUE: Axial 5 mm thick images were obtained without oral or IV contrast. The hduns-vy-lyfm span s the entirety of the system including uppermost abdomen and lung bases. All CT scans are performed using dose optimization technique as appropriate and may include automated exposure control or mA/KV adjustment according to patient size. FINDINGS: Mild left-sided hydronephrosis is present secondary to a 5- 6 millimeter stone in the left mid ureter. Size and location of the stone have not changed from January 15. Distal to the stone the ur eter is decompressed. Pelvic floor phleboliths are present. Nonobstructing calculi in the lower pole calyx of the right kidney stable from prior imaging. No suspicious renal masses. Isodense masses and pyelonephritis are not excluded on a stone protocol CT scan. No urinary bladder suspicious finding. N o significant adrenal finding. Imaged portions of the liver, spleen and pancreas show no suspicious findings on non-contrast imaging . No gallbladder or biliary tree abnormality identified. No suspicious bowel findings. No mass or bulky lymphadenopathy. Small fat only umbilical hernia present. Fat extends into the origi n of each inguinal canal. No free air, free fluid or inflammatory stranding. No significant bony abnormality. IMPRESSION: Mild left-sided hydronephrosis secondary to a 5- 6 millimeter left mid ureter stone. Size, location and degree of hydronephrosis have not changed from the January 15 study. Isodense masses and pyelonephritis are not excluded on stone protocol technique.
--- NOTE | 2019-01-19 15:35 | ER ---
Nurse's Notes [facility] Name: Yonatan Ramos Age: 38 yrs Sex: Male : 1980 Arrival Date: 01/19/2019 Time: 12:11 Bed 15 Private MD: Diagnosis: Hydronephrosis with renal and ureteral calculous obstruction Presentation: 01/19 12:11 Presenting complaint: EMS states: Pt c/o pain in L flank that began today while ph working, hx of kidney stones, says that this pain feels the same, also reports nausea, seen at [facility] and given 60 mg Toradol IM w/ no relief, VSS en route to ED. Transition of care: patient was not received from another setting of care. Onset of symptoms was January 19, 2019. Risk Assessment: Do you want to hurt yourself or someone else? Patient reports no desire to harm self or others. Initial Sepsis Screen: Does the patient meet any 2 criteria? No. Patient's initial sepsis screen is negative. Does the patient have a suspected source of infection? No. Patient's initial sepsis screen is negative. Care prior to arrival: Medication(s) given: Toradol 60 mg IM. 12:11 Method Of Arrival: EMS: [facility] ph 12:11 Acuity: ANDREAS 3 ph Historical: - Allergies: 12:16 No Known Allergies; ph - Home Meds: 14:05 Keppra Oral [Active]; Dilantin Oral 300 mg twice a day [Active]; tw2 - PMHx: 12:16 Back pain; Chronic pain; Diabetes - IDDM; Nerve damage; Seizures; ph - PSHx: 12:16 Lithotripsy; right kidney surgery; ph - Immunization history:: Adult Immunizations unknown. - Ebola Screening: : No symptoms or risks identified at this time. - Social history:: Smoking status: . Screenin:19 Abuse screen: Denies threats or abuse. Denies injuries from another. Nutritional ph screening: No deficits noted. Tuberculosis screening: No symptoms or risk factors identified. Fall Risk None identified. Assessment: 12:17 General: Appears in no apparent distress. uncomfortable, Behavior is calm, cooperative, ph appropriate for age. Pain: Complains of pain in left low back and left mid back Pain radiates to anterior aspect of left lateral abdomen, posterior aspect of left lateral abdomen and left lower quadrant. Neuro: Level of Consciousness is awake, alert, obeys commands, Oriented to person, place, time, situation. Cardiovascular: Capillary refill < 3 seconds in bilateral fingers Patient's skin is warm and dry. Respiratory: Airway is patent Respiratory effort is even, unlabored, Respiratory pattern is regular, symmetrical. GI: Abdomen is round non-distended, Bowel sounds present X 4 quads. Abd is soft X 4 quads Reports lower abdominal pain, nausea, vomiting. : Reports pain in left flank(s), lower quadrant(s) in lower back. Derm: Skin is intact, is healthy with good turgor, Skin is pink, warm \T\ dry. Musculoskeletal: Circulation, motion, and sensation intact. Range of motion: intact in all extremities. 13:00 Reassessment: Patient appears in no apparent distress at this time. Patient and/or tw2 family updated on plan of care and expected duration. Pain level reassessed. Patient is alert, oriented x 3, equal unlabored respirations, skin warm/dry/pink. 14:03 Reassessment: Patient appears in no apparent distress at this time. Patient and/or tw2 family updated on plan of care and expected duration. Pain level reassessed. Patient is alert, oriented x 3, equal unlabored respirations, skin warm/dry/pink. 15:05 Reassessment: Patient appears in no apparent distress at this time. Patient and/or tw2 family updated on plan of care and expected duration. Pain level reassessed. Patient is alert, oriented x 3, equal unlabored respirations, skin warm/dry/pink. 16:08 Reassessment: Patient appears in no apparent distress at this time. Patient and/or tw2 family updated on plan of care and expected duration. Pain level reassessed. Patient is alert, oriented x 3, equal unlabored respirations, skin warm/dry/pink. Vital Signs: 12:14 BP 137 / 88; Pulse 57; Resp 22; Temp 98.0; Pulse Ox 97% on R/A; Weight 86.18 kg; Pain ph 10/10; 13:00 BP 110 / 67; Pulse 59; Resp 17; Pulse Ox 99% on R/A; tw2 14:03 BP 118 / 79; Pulse 51; Resp 17; Pulse Ox 97% on R/A; tw2 15:05 BP 110 / 63; Pulse 60; Resp 17; Pulse Ox 99% on R/A; Pain 7/10; tw2 16:00 BP 112 / 72; Pulse 59; Resp 16; Pulse Ox 100% on R/A; tw2 ED Course: 12:11 Patient arrived in ED. ph 12:11 Anthony Muñoz NP is PHCP. pm1 12:11 Hemal Montgomery MD is Attending Physician. pm1 12:14 Triage completed. ph 12:16 Arm band placed on Patient placed in an exam room, on a stretcher. ph 12:18 Radha Carolina RN is Primary Nurse. tw2 12:20 Patient has correct armband on for positive identification. Bed in low position. Call ph light in reach. Side rails up X 1. Pulse ox on. NIBP on. 12:28 Initial lab(s) drawn, by de, sent to lab. Inserted saline lock: 22 gauge in right jb1 antecubital area, using aseptic technique. Blood collected. 14:26 Nuria Bee MD is Hospitalizing Provider. pm1 16:08 No provider procedures requiring assistance completed. Patient admitted, IV remains in tw2 place. Administered Medications: 12:36 Drug: Zofran 4 mg Route: IVP; Site: right antecubital; tw2 13:45 Follow up: Response: No adverse reaction; Nausea is decreased tw2 12:38 Drug: morphine 4 mg Route: IVP; Site: right antecubital; tw2 14:00 Follow up: Response: No adverse reaction; Pain is decreased tw2 12:39 Drug: NS 0.9% 1000 ml Route: IV; Rate: 1000 ml; Site: right antecubital; tw2 13:36 Drug: morphine 4 mg Route: IVP; Site: right antecubital; tw2 14:38 Follow up: Response: No adverse reaction; Pain is decreased tw2 Outcome: 14:27 Decision to Hospitalize by Provider. pm1 16:08 Patient left the ED. tw2 16:08 Admitted to OR accompanied by nurse, via stretcher, with chart. tw2 16:08 Condition: stable 16:08 Instructed on the need for admit. Signatures: Juan Pablo Powell jb1 Henna Caraballo RN RN Anthony Muñoz NP ETHANOL OPERATOR pm1 Carolina, Radha, RN RN tw2
[2019-01-19 15:36] LABS: Urine Bacteria <20 /HPF (NONE SEEN); Urine Culture Reflex Order REFLEXED; Urine Mucus 2+ /HPF (NONE SEEN); Urine RBC 20-50 /HPF (NONE SEEN)
--- NOTE | 2019-01-19 15:36 | EDPHYS ---
Physician Documentation [facility] Name: Yonatan Ramos Age: 38 yrs Sex: Male : 1980 Arrival Date: 01/19/2019 Time: 12:11 Bed 15 Private MD: ED Physician Hemal Montgomery HPI: 01/19 12:25 This 38 yrs old Male presents to ER via EMS with complaints of Possible pm1 Kidney Stone. 12:25 The patient complains of pain in the left low back. The pain radiates to the left lower pm1 quadrant. Onset: The symptoms/episode began/occurred 4 day(s) ago. Modifying factors: The symptoms are alleviated by nothing. the symptoms are aggravated by nothing. Associated signs and symptoms: Pertinent positives: nausea, Pertinent negatives: diarrhea, dysuria, fever, vomiting. Severity of pain: in the emergency department the pain is actually worse. The patient has experienced similar episodes in the past, a few times. The patient has been recently seen by a physician: [facility] for kidney stone and given Toradol IM prior to EMS transfer. Patient was seen her 4 days ago and diagnosis with proximal ureter calculous. Was discharged home to trial passage of stone at home with pain medications. Historical: - Allergies: 12:16 No Known Allergies; ph - Home Meds: 14:05 Keppra Oral [Active]; Dilantin Oral 300 mg twice a day [Active]; tw2 - PMHx: 12:16 Back pain; Chronic pain; Diabetes - IDDM; Nerve damage; Seizures; ph - PSHx: 12:16 Lithotripsy; right kidney surgery; ph - Immunization history:: Adult Immunizations unknown. - Ebola Screening: : No symptoms or risks identified at this time. - Social history:: Smoking status: . ROS: 12:25 Constitutional: Negative for fever, chills, and weight loss, Eyes: Negative for injury, pm1 pain, redness, and discharge, ENT: Negative for injury, pain, and discharge, Neck: Negative for injury, pain, and swelling, Cardiovascular: Negative for chest pain, palpitations, and edema, Respiratory: Negative for shortness of breath, cough, wheezing, and pleuritic chest pain, Abdomen/GI: Negative for abdominal pain, nausea, vomiting, diarrhea, and constipation. 12:25 : Negative for injury, bleeding, discharge, and swelling, MS/Extremity: Negative for injury and deformity, Skin: Negative for injury, rash, and discoloration, Neuro: Negative for headache, weakness, numbness, tingling, and seizure. 12:25 Back: Positive for flank pain, on the left. Exam: 12:25 Constitutional: This is a well developed, well nourished patient who is awake, alert, pm1 and in no acute distress. Head/Face: Normocephalic, atraumatic. Eyes: Pupils equal round and reactive to light, extra-ocular motions intact. Lids and lashes normal. Conjunctiva and sclera are non-icteric and not injected. Cornea within normal limits. Periorbital areas with no swelling, redness, or edema. ENT: Nares patent. No nasal discharge, no septal abnormalities noted. Tympanic membranes are normal and external auditory canals are clear. Oropharynx with no redness, swelling, or masses, exudates, or evidence of obstruction, uvula midline. Mucous membranes moist. Neck: Trachea midline, no thyromegaly or masses palpated, and no cervical lymphadenopathy. Supple, full range of motion without nuchal rigidity, or vertebral point tenderness. No Meningismus. Chest/axilla: Normal chest wall appearance and motion. Nontender with no deformity. No lesions are appreciated. Cardiovascular: Regular rate and rhythm with a normal S1 and S2. No gallops, murmurs, or rubs. Normal PMI, no JVD. No pulse deficits. Respiratory: Lungs have equal breath sounds bilaterally, clear to auscultation and percussion. No rales, rhonchi or wheezes noted. No increased work of breathing, no retractions or nasal flaring. Abdomen/GI: Soft, non-tender, with normal bowel sounds. No distension or tympany. No guarding or rebound. No evidence of tenderness throughout. 12:25 Skin: Warm, dry with normal turgor. Normal color with no rashes, no lesions, and no evidence of cellulitis. MS/ Extremity: Pulses equal, no cyanosis. Neurovascular intact. Full, normal range of motion. 12:25 Back: normal spinal alignment noted, CVA tenderness, that is moderate, is noted on the left. 12:25 Neuro: Orientation: is normal, Motor: is normal, moves all fours, Sensation: is normal, no obvious gross deficits. Vital Signs: 12:14 BP 137 / 88; Pulse 57; Resp 22; Temp 98.0; Pulse Ox 97% on R/A; Weight 86.18 kg; Pain ph 10/10; 13:00 BP 110 / 67; Pulse 59; Resp 17; Pulse Ox 99% on R/A; tw2 14:03 BP 118 / 79; Pulse 51; Resp 17; Pulse Ox 97% on R/A; tw2 15:05 BP 110 / 63; Pulse 60; Resp 17; Pulse Ox 99% on R/A; Pain 7/10; tw2 16:00 BP 112 / 72; Pulse 59; Resp 16; Pulse Ox 100% on R/A; tw2 MDM: 12:16 Patient medically screened. pm1 12:25 Data interpreted: Pulse oximetry: on room air is 97 %. Interpretation: normal. pm1 13:10 Counseling: I had a detailed discussion with the patient and/or guardian regarding: the pm1 historical points, exam findings, and any diagnostic results supporting the discharge/admit diagnosis, lab results, radiology results, the need for further work-up and treatment in the hospital. 13:20 Data reviewed: vital signs. pm1 13:45 Physician consultation: Nuria Bee MD was called at 13:17, was contacted at 13:41, pm1 regarding admission, patient's condition, would like consultation with Dr. Saleh prior to admission. 15:09 Physician consultation:. pm1 15:20 ED course: patient only takes Keppra and uses his Dilantin for times that he actually pm1 has seizures. But does not have any dilantin at the moment. Therefore no need to check a level because it will be nonexistent. Does not have a diagnosis of DM. Last seizure event last Tuesday. Typically has weekly seizures. 2 glasses of water at clinic around 1200. Last ate dinner last night. 15:53 Physician consultation: Hever Saleh MD in the emergency department to see patient at pm1 15:53. 01/19 12:21 Order name: Basic Metabolic Panel pm1 01/19 12:21 Order name: CBC with Diff pm1 01/19 12:21 Order name: Hepatic Function pm1 01/19 12:21 Order name: Lipase pm1 01/19 12:55 Order name: CBC with Automated Diff; Complete Time: 12:57 EDMS 01/19 12:57 Order name: Basic Metabolic Panel; Complete Time: 12:58 EDMS 01/19 12:21 Order name: CT Stone Protocol pm1 01/19 12:57 Order name: Liver (Hepatic) Function; Complete Time: 12:58 EDMS 01/19 12:57 Order name: Lipase; Complete Time: 12:58 EDMS 01/19 13:00 Order name: CT; Complete Time: 13:09 EDMS 01/19 14:30 Order name: Urine Microscopic Only pm1 01/19 14:45 Order name: Urine Dipstick--Ancillary (enter results) em1 01/19 15:37 Order name: Urine Microscopic Only EDMS 01/19 12:19 Order name: IV Start; Complete Time: 12:29 tw2 01/19 12:21 Order name: Labs collected and sent; Complete Time: 12:29 pm1 01/19 14:30 Order name: Urine Dipstick-Ancillary (obtain specimen); Complete Time: 14:42 pm1 Administered Medications: 12:36 Drug: Zofran 4 mg Route: IVP; Site: right antecubital; tw2 13:45 Follow up: Response: No adverse reaction; Nausea is decreased tw2 12:38 Drug: morphine 4 mg Route: IVP; Site: right antecubital; tw2 14:00 Follow up: Response: No adverse reaction; Pain is decreased tw2 12:39 Drug: NS 0.9% 1000 ml Route: IV; Rate: 1000 ml; Site: right antecubital; tw2 13:36 Drug: morphine 4 mg Route: IVP; Site: right antecubital; tw2 14:38 Follow up: Response: No adverse reaction; Pain is decreased tw2 Disposition: 16:22 Co-signature as Attending Physician, Hemal Montgomery MD. rn Disposition: 01/19/19 14:27 Hospitalization ordered by Nuria Bee for Inpatient Admission. Preliminary diagnosis is Hydronephrosis with renal and ureteral calculous obstruction. - Bed requested for Telemetry/MedSurg (Inpatient). - Status is Inpatient Admission. tw2 - Condition is Stable. - Problem is new. - Symptoms have improved. UTI on Admission? No Signatures: Dispatcher [employer] [facility] Hemal Montgomery MD MD rn Hall, Patricia, RN RN ph Anthony Muñoz, GAUTAM WARP TESTER pm1 Radha Carolina RN RN tw2 Corrections: (The following items were deleted from the chart) 15:19 14:27 Hospitalization Ordered by Nuria Bee MD for Inpatient Admission. Preliminary pm1 diagnosis is Hydronephrosis with renal and ureteral calculous obstruction. Bed requested for Telemetry/MedSurg (Inpatient). Status is Inpatient Admission. Condition is Stable. Problem is new. Symptoms have improved. UTI on Admission? No. pm1 15:28 15:19 01/19/2019 14:27 Hospitalization Ordered by Nuria Bee MD for Observation. pm1 Preliminary diagnosis is Hydronephrosis with renal and ureteral calculous obstruction. Bed requested for Telemetry/MedSurg (observation). Status is Observation. Condition is Stable. Problem is new. Symptoms have improved. UTI on Admission? No. pm1 16:08 15:28 01/19/2019 14:27 Hospitalization Ordered by Nuria Bee MD for Inpatient tw2 Admission. Preliminary diagnosis is Hydronephrosis with renal and ureteral calculous obstruction. Bed requested for Telemetry/MedSurg (Inpatient). Status is Inpatient Admission. Condition is Stable. Problem is new. Symptoms have improved. UTI on Admission? No. pm1
[2019-01-19 15:45] LABS: Urine Blood 2+ (NEG); Urine Glucose NEGATIVE (NEG); Urine Protein TRACE (NEG); Urine pH 6.5 (5.0-7.0)
[2019-01-19] MEDS ORDERED: LIDOCAINE 1% MPF 5 ML VIAL ONE (16:26)
[2019-01-19] MEDS ORDERED: PROPOFOL 200 MG/20 ML VIAL IV ONE (16:26)
[2019-01-19] MEDS ORDERED: FENTANYL CITR 100 MCG/2 ML ONE (16:28)
[2019-01-19] MEDS ORDERED: GENTAMICIN 100 MG/100 ML BAG 100 ML IV ONE (16:28)
--- OUTSIDE RECORDS SUMMARY | 2019-01-19 16:34 | XMS REPORT | Clinical Summary ---
:1980 Author Organization [facility] Address [address] [place] [address] Care Team Providers Name Role Phone Unavailable [...] WBC 11.9 (H) 3.5 - 10.5 K/L [facility] RBC 4.55 (L) 4.63 - 6.08 M/L [facility] Hemoglobin 13.0 (L) 13.7 - 17.5 GM/DL [facility] Hematocrit 38.6 (L) 40.1 - 51.0 % [facility] MCV 84.8 79.0 - 92.2 fL [facility] MCH 28.6 25.7 - 32.2 pg [facility] MCHC 33.7 32.3 - 36.5 GM/DL [facility] RDW 12.6 11.6 - 14.4 % [facility] Platelets 273 150 - 450 K/CU MM [facility] MPV 8.8 (L) 9.4 - 12.4 fL [facility] nRBC 0 0 - 0 /100 WBC [facility] % Neutros 58 % [facility] % Lymphs 31 % [facility] % Monos 8 % [facility] % Eos 1 % [facility] % Baso 1 % [facility] # Neutros 6.96 (H) 1.78 - 5.38 K/L [facility] # Lymphs 3.73 (H) 1.32 - 3.57 K/L [facility] # Monos 0.99 (H) 0.30 - 0.82 K/L [facility] # Eos 0.15 0.04 - 0.54 K/L [facility] # Baso 0.06 0.01 - 0.08 K/L [facility] Immature Granulocytes-Relative 0 0 - 1 % [facility] Specimen Blood Performing Organization Address City/State/Zipcode Phone Number [facility] [address] [place] [address] CENTER Basic Metabolic Panel (02/24/2018 3:06 AM CDT) Sodium 142 136 - 145 meq/L [facility] Potassium 3.8 3.5 - 5.1 meq/L [facility] Chloride 112 (H) 98 - 107 meq/L [facility] CO2 24 22 - 29 meq/L [facility] BUN 9 7 - 21 mg/dL [facility] Creatinine 0.80 0.57 - 1.25 mg/dL [facility] Glucose 94 70 - 105 mg/dL [facility] Calcium 9.1 8.4 - 10.2 mg/dL [facility] EGFR 108Comment: ESTIMATED GFR IS mL/min/1.73 sq m [facility] NOT ACCURATE CREATININE [facility] CLEARANCE IN PREDICTING GLOMERULAR FILTRATION RATE. ESTIMATED GFR IS NOT APPLICABLE FOR DIALYSIS PATIENTS. Specimen Blood Performing Organization Address City/State/Zipcode Phone Number [facility] [phone] [place] [address] [phone] CENTER after 01/18/2018 Advance Directives For more information, please contact:[address] [phone] Code Status Date Activated Date Inactivated Comments Full Code 02/24/2018 2:36 AM 02/24/2018 10:43 AM This code status was determined by: Patient
--- OUTSIDE RECORDS SUMMARY | 2019-01-19 16:34 | XMS REPORT ---
:1980 Author Organization [facility] Address [address] [place] [address] Dr. Camara [address] [place] [id number] Care Team Providers Name Role Phone JDJEAN-PAULSRINI SAVAGETHALIAMELISSA JOHNS Unavailable Unavailable Problems This patient has no known problems. Allergies, Adverse Reactions, Alerts This patient has no known allergies or adverse reactions. Medications This patient has no known medications. Encounters Start End Encounter Admission Attending Care Care Encounter Date/Time Date/Time Type Type Clinicians Facility Department ID 2018-09-04 2018-09-04 Emergency [facility] MED [id number] 19:56:41 19:56:41 Results Test Description Test Time Test Comments Text Results Atomic Results Result Comments BASIC METABOLIC PANEL 2018-02-24 03:44:00 Test Item Value Reference Range Comments SODIUM (BEAKER) (test 142 meq/L 136-145 absq=644) POTASSIUM (BEAKER) (test 3.8 meq/L 3.5-5.1 hdri=636) CHLORIDE (BEAKER) (test 112 meq/L 98-107 iwqm=546) CO2 (BEAKER) (test 24 meq/L 22-29 zqfh=080) BLOOD UREA NITROGEN 9 mg/dL 7-21 (BEAKER) (test wqzf=364) CREATININE (BEAKER) (test 0.80 mg/dL 0.57-1.25 xvxj=287) GLUCOSE RANDOM (BEAKER) 94 mg/dL 70-105 (test gcbm=502) CALCIUM (BEAKER) (test 9.1 mg/dL 8.4-10.2 lvcs=634) EGFR (BEAKER) (test 108 mL/min/1.73 sq m ESTIMATED GFR IS NOT wwqb=3464) ACCURATE CREATININE CLEARANCE IN PREDICTING GLOMERULAR FILTRATION RATE. ESTIMATED GFR IS NOT APPLICABLE FOR DIALYSIS PATIENTS. CBC W/PLT COUNT & AUTO [id number] 03:21:00 Test Item Value Reference Range Comments WHITE BLOOD CELL COUNT (BEAKER) (test ujce=284) 11.9 K/ L 3.5-10.5 RED BLOOD CELL COUNT (BEAKER) (test pixh=234) 4.55 M/ L 4.63-6.08 HEMOGLOBIN (BEAKER) (test hjog=937) 13.0 GM/DL 13.7-17.5 HEMATOCRIT (BEAKER) (test ffin=800) 38.6 % 40.1-51.0 MEAN CORPUSCULAR VOLUME (BEAKER) (test feme=701) 84.8 fL 79.0-92.2 MEAN CORPUSCULAR HEMOGLOBIN (BEAKER) (test 28.6 pg 25.7-32.2 wuyu=969) MEAN CORPUSCULAR HEMOGLOBIN CONC (BEAKER) (test 33.7 GM/DL 32.3-36.5 efwj=727) RED CELL DISTRIBUTION WIDTH (BEAKER) (test 12.6 % 11.6-14.4 jyyz=506) PLATELET COUNT (BEAKER) (test pxke=062) 273 K/CU MM 150-450 MEAN PLATELET VOLUME (BEAKER) (test ykvu=475) 8.8 fL 9.4-12.4 NUCLEATED RED BLOOD CELLS (BEAKER) (test 0 /100 WBC 0-0 vrqx=101) NEUTROPHILS RELATIVE PERCENT (BEAKER) (test 58 % cfgx=639) LYMPHOCYTES RELATIVE PERCENT (BEAKER) (test 31 % cfxp=172) MONOCYTES RELATIVE PERCENT (BEAKER) (test 8 % tsxu=968) EOSINOPHILS RELATIVE PERCENT (BEAKER) (test 1 % dnzo=696) BASOPHILS RELATIVE PERCENT (BEAKER) (test 1 % qira=813) NEUTROPHILS ABSOLUTE COUNT (BEAKER) (test 6.96 K/ L 1.78-5.38 ltpw=071) LYMPHOCYTES ABSOLUTE COUNT (BEAKER) (test 3.73 K/ L 1.32-3.57 lzap=563) MONOCYTES ABSOLUTE COUNT (BEAKER) (test 0.99 K/ L 0.30-0.82 xieh=298) EOSINOPHILS ABSOLUTE COUNT (BEAKER) (test 0.15 K/ L 0.04-0.54 ylos=524) BASOPHILS ABSOLUTE COUNT (BEAKER) (test 0.06 K/ L 0.01-0.08 yhhj=385) IMMATURE GRANULOCYTES-RELATIVE PERCENT (BEAKER) 0 % 0-1 (test qwez=0781)
--- OUTSIDE RECORDS SUMMARY | 2019-01-19 16:34 | XMS REPORT | Clinical Summary ---
:1980 Author Organization [facility] Address [facility] [place] [address] Care Team Providers Name Role Phone Unavailable [...] Comments Blood Pressure 104/69 09/04/2018 11:00 PM FRUIT WORKER Pulse 87 09/04/2018 11:00 PM FRUIT WORKER Temperature 36.6 C (97.9 F) 09/04/2018 11:00 PM FRUIT WORKER Respiratory Rate 18 09/04/2018 11:00 PM FRUIT WORKER Oxygen Saturation 96% 09/04/2018 11:00 PM FRUIT WORKER Inhaled Oxygen Concentration - - Weight - - Height - - Body Mass Index - - Plan of Treatment Health Maintenance Due Date Last Done Comments IMM Influenza Seasonal May to September (>/=19 yrs) 05/01/2019 Procedures Procedure Name Priority Date/Time Associated Diagnosis Comments 12 LEAD EKG Routine 09/04/2018 8:49 PM Seizure Results for this FRUIT WORKER procedure are in the results section. 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 Measurements IntervalsAxis Rate: 108P: 34 AK: 131QRS: 57 QRSD: 92 T: 35 QT: 327 QTc:438 Interpretive Statements SINUS TACHYCARDIA ABNORMAL RHYTHM ECG Reviewed by Electronically Signed On 09-05-2018 4:34:05 FRUIT WORKER by Lavon Villarreal M.D. Specimen Performing Organization Address City/State/Zipcode Phone Number SMS after 01/18/2018 Insurance Payer Benefit Plan / Subscriber ID Effective Dates Phone Address Type Group HD SELF-PAY xxxxxxxxx 2018-[facility] [phone] SELF-PAY U[address]CREENED [address] [place] [address]
[2019-01-19] MEDS ORDERED: EPHEDRINE SULF 50 MG/ML VIAL ONE (16:52)
[2019-01-19] MEDS ORDERED: KETOROLAC 30 MG/ML INJ ONE (17:02)
[2019-01-19] MEDS ORDERED: DEXAMETHASONE 10 MG/ML VIAL ONE (17:03)
[2019-01-19] MEDS ORDERED: Mastisol Adhesive Liq ONE (17:04)
[2019-01-19] MEDS ORDERED: levETIRAcetam 500 MG TAB PO ONE (17:26)
[2019-01-19] MEDS ORDERED: MIDAZOLAM HCL 2 MG/2 ML INJ ONE (17:29)
--- NOTE | 2019-01-19 17:49 | RAD REPORT ---
EXAM DESCRIPTION: RAD - Urography Retrograde - 01/19/2019 4:56 pm FINDINGS: There were 15 spot images obtained during a fluoroscopic assisted placement of a left uret eral stent. No suspicious or unexpected finding. Fluoro time was 1 minutes 23 seconds.
[2019-01-19] MEDS ORDERED: CODEINE 30MG/APAP 300MG TAB ONE (18:02)
--- NOTE | 2019-01-19 20:29 | CON ---
Subjective: A 38-year-old gentleman who presented with 2 weeks ago what he believes to be some const ipation, then started having some left flank pain, came to the ER 4 days ago where he was scanned, sh owing a 5 to 6 mm stone in the left upper ureter. He was placed on Tylenol No.3 and Flomax; has not been taking much Tylenol No.3, says it does not help much, but he has been taking the Flomax every da y. He comes in today for increasing pain. Repeat CT scan showed this stone in the similar position with left-sided hydronephrosis secondary to a 5 to 6 mm left upper ureter stone, unchanged from the study. However, I was unable to find a January 15 study. He did have nonobstructing calculi i n the lower pole calyx of the right kidney, which has been stable. He had previous kidney stones, garcia d stents placed, and ureteroscopy done by [facility]. Allergies: NO KNOWN DRUG ALLERGIES. Home Medications: Keppra, Dilantin. Past Medical History: Chronic back pain, diabetes, but sugar seems to be stable. History of nerve d amage and seizures. Past Surgical History: Lithotripsy, right kidney surgery. Immunizations: Up to date. Social History: Noncontributory. Review of Systems: Ten-point review of systems otherwise normal. Physical Examination: Vital Signs: Afebrile, stable. HEENT: Atraumatic, normocephalic. Lungs: Clear. Heart: S1, S2. Abdomen: Soft, nontender. Extremities: Normal range of motion. Laboratory Data: Reviewed. Normal white count 9.8, H and H are 14 and 40, platelet count 281. Chem istry: Sodium 142, potassium 3.8, chloride 109, carbon dioxide 28, BUN 12, creatinine 1.0, GFR 78. Urine study shows pH 6.5, specific gravity 1.020, ketone negative, blood 2+, rbc 20-50, wbc 5-10, epi thelial cells 5-10. Assessment: A 5 to 6 mm left upper ureter stone, approximately L3 area on CT scan. Plan is for cysto, stent, and then discharge home. All the general information, alternatives, and ri sks were reviewed. The patient was not coerced. Informed consent was obtained. Thank you very much. PB/MODL Voice ID: [id number] Report ID: [id number]
--- NOTE | 2019-01-20 00:16 | DS ---
Date of Discharge: 01/19/2019 Preoperative Diagnosis: A 5-6 mm stone in left upper ureter at L3. Postoperative Diagnosis: A 5-6 mm stone in left upper ureter at L3, stone not visualized by fluoroscopy, possible uric acid stone versus proteinaceous stone. Condition On Discharge: Good. Discharge Medications: Oxybutynin 10 mg XL 1 p.o. daily x7, take stool softener b.i.d., Tylenol No.3 two tabs p.o. q.4 hours p.r.n. pain. He needs to follow up in 1 week, most likely a stent removal, stone may have been crashed and ureter should be dilated enough from to pass the stone by then. MARIN/JOANNE Voice ID: [id number] Report ID: [id number]
--- NOTE | 2019-01-20 00:16 | OP ---
Surgeon: Hever Saleh MD Preoperative Diagnosis: A 5-6 mm stone in left upper ureter at L3. Postoperative Diagnosis: A 5-6 mm stone in left upper ureter at L3, stone not visualized by fluoroscopy, possible uric acid stone versus proteinaceous stone. Procedure: Cystoscopy; left retrograde stent placement, 6-Syriac x 28. Complications: None. Indication: A 38-year-old gentleman came in with the above stone twice to the emergency room with un bearable pain, stone has not migrated, was deemed necessary to go ahead and place a stent for him. H ounsfield units on the stone was 807. Description Of Procedure: The patient understands the risks and benefits, and the patient decided to proceed and was taken to the operative suite, placed in a supine lithotomy position. The area was p repped and draped. We entered the bladder with a 21-Syriac scope and 30-degree lens. No abnormaliti es were found. Left orifice was difficult to cannulate. We used a guidewire to place the ureteral c atheter into the distal ureter and aspirated the air out and then injected a few CCs of contrast to d elineate the anatomy. We could see the obstruction at L3 level on the left. Dye went directly to re nal pelvis that was minimally dilated. We then placed a guidewire by the stone with some resistance and placed the ureteral catheter up to the renal pelvis and measured for the stent, turns out to be 2 8 cm. We then went ahead and placed a double-J stent in the standard fashion and left the string attached to t he penis. PB/JOANNE Voice ID: [id number] Report ID: [id number]
== END 2019-01-19 18:23 | disposition home or self-care (01) ==
LOC: ER 12:06 → OR 16:30
PROVIDERS: ATTEND Urology
PROC: 0T778DZ Dilation of Left Ureter with Intraluminal Device, Via Natural or Artificial Opening Endoscopic (ICD-10-PCS; principal; 2019-01-19 15:30)
DX: N13.2 Hydronephrosis with renal and ureteral calculous obstruction (principal); E11.9 Type 2 diabetes mellitus without complications; G40.909 Epilepsy, unspecified, not intractable, without status epilepticus; Z79.899 Other long term (current) drug therapy
CPT/HCPCS: 36415; 74176; 74420; 76377; 80048; 80076; 81003; 81015; 83690; 85025; 87086; 87088; 96374; 96375; 99285; J1100; J1580; J2250; J2405; J2704; J3010; J7030

== ENCOUNTER 2019-01-22 17:06 | Inpatient (IN) | payer SELFPAY ==
--- OUTSIDE RECORDS SUMMARY | 2019-01-22 17:15 | XMS REPORT | Clinical Summary ---
:1980 Author Organization [facility] Address [address] [place] [address] Care Team Providers Name Role Phone Unavailable [...] Faby Walker Seizure (HCC) MD Sylvie after 01/21/2018 Social History Tobacco Use Types Packs/Day Years [...] procedure are in the results section. after 01/21/2018 Results RHYTHM STRIP - SCAN (02/28/2018 7:30 AM CDT) Narrative Performed At CBC with platelet count + automated diff (02/24/2018 3:06 AM CDT) WBC 11.9 (H) 3.5 - 10.5 K/L [facility] RBC 4.55 (L) 4.63 - 6.08 M/L [facility] Hemoglobin 13.0 (L) 13.7 - 17.5 GM/DL [facility] Hematocrit 38.6 (L) 40.1 - 51.0 % [facility] MCV 84.8 79.0 - 92.2 fL [facility] MCH 28.6 25.7 - 32.2 pg [facility] MCHC 33.7 32.3 - 36.5 GM/DL [facility] RDW 12.6 11.6 - 14.4 % [facility] Platelets 273 150 - 450 K/CU MM [facility] MPV 8.8 (L) 9.4 - 12.4 fL [facility] nRBC 0 0 - 0 /100 WBC [facility] % Neutros 58 % [facility] % Lymphs 31 % [facility] % Monos 8 % [facility] % Eos 1 % [facility] % Baso 1 % [facility] # Neutros 6.96 (H) 1.78 - 5.38 K/L [facility] # Lymphs 3.73 (H) 1.32 - 3.57 K/L [facility] # Monos 0.99 (H) 0.30 - 0.82 K/L [facility] # Eos 0.15 0.04 - 0.54 K/L [facility] # Baso 0.06 0.01 - 0.08 K/L [facility] Immature Granulocytes-Relative 0 0 - 1 % [facility] Specimen Blood Performing Organization Address City/State/Zipcode Phone Number [facility] [address] [place] [address] CENTER Basic Metabolic Panel (02/24/2018 3:06 AM CDT) Sodium 142 136 - 145 meq/L [facility] Potassium 3.8 3.5 - 5.1 meq/L [facility] Chloride 112 (H) 98 - 107 meq/L [facility] CO2 24 22 - 29 meq/L [facility] BUN 9 7 - 21 mg/dL [facility] Creatinine 0.80 0.57 - 1.25 mg/dL [facility] Glucose 94 70 - 105 mg/dL [facility] Calcium 9.1 8.4 - 10.2 mg/dL [facility] EGFR 108Comment: ESTIMATED GFR IS mL/min/1.73 sq m [facility] NOT ACCURATE CREATININE [facility] CLEARANCE IN PREDICTING GLOMERULAR FILTRATION RATE. ESTIMATED GFR IS NOT APPLICABLE FOR DIALYSIS PATIENTS. Specimen Blood Performing Organization Address City/State/Zipcode Phone Number [place] [phone] [place] [address] CENTER after 01/21/2018 Advance Directives For more information, please contact:[address] [phone] Code Status Date Activated Date Inactivated Comments Full Code 02/24/2018 2:36 AM 02/24/2018 10:43 AM This code status was determined by: Patient
--- OUTSIDE RECORDS SUMMARY | 2019-01-22 17:15 | XMS REPORT ---
:1980 Author Organization [facility] Address [address] [place] [address] [address] [place] [address] Care Team Providers Name Role Phone MISSY JONES Unavailable Unavailable Problems This patient has no known problems. Allergies, Adverse Reactions, Alerts This patient has no known allergies or adverse reactions. Medications This patient has no known medications. Encounters Start End Encounter Admission Attending Care Care Encounter Date/Time Date/Time Type Type Clinicians Facility Department ID 2018-09-04 2018-09-04 Emergency [facility] MED [id number] 19:56:41 19:56:41 Results Test Description Test Time Test Comments Text Results Atomic Results Result Comments BASIC METABOLIC PANEL 2018-02-24 03:44:00 Test Item Value Reference Range Comments SODIUM (BEAKER) (test 142 meq/L 136-145 ecpr=277) POTASSIUM (BEAKER) (test 3.8 meq/L 3.5-5.1 wehc=584) CHLORIDE (BEAKER) (test 112 meq/L 98-107 lais=499) CO2 (BEAKER) (test 24 meq/L 22-29 wmyc=819) BLOOD UREA NITROGEN 9 mg/dL 7-21 (BEAKER) (test rquy=912) CREATININE (BEAKER) (test 0.80 mg/dL 0.57-1.25 kktt=860) GLUCOSE RANDOM (BEAKER) 94 mg/dL 70-105 (test hyzm=563) CALCIUM (BEAKER) (test 9.1 mg/dL 8.4-10.2 hpgg=590) EGFR (BEAKER) (test 108 mL/min/1.73 sq m ESTIMATED GFR IS NOT dday=3962) ACCURATE CREATININE CLEARANCE IN PREDICTING GLOMERULAR FILTRATION RATE. ESTIMATED GFR IS NOT APPLICABLE FOR DIALYSIS PATIENTS. CBC W/PLT COUNT & AUTO [id number] 03:21:00 Test Item Value Reference Range Comments WHITE BLOOD CELL COUNT (BEAKER) (test atkc=949) 11.9 K/ L 3.5-10.5 RED BLOOD CELL COUNT (BEAKER) (test tfen=458) 4.55 M/ L 4.63-6.08 HEMOGLOBIN (BEAKER) (test ahog=228) 13.0 GM/DL 13.7-17.5 HEMATOCRIT (BEAKER) (test ivqa=161) 38.6 % 40.1-51.0 MEAN CORPUSCULAR VOLUME (BEAKER) (test omde=972) 84.8 fL 79.0-92.2 MEAN CORPUSCULAR HEMOGLOBIN (BEAKER) (test 28.6 pg 25.7-32.2 atfd=292) MEAN CORPUSCULAR HEMOGLOBIN CONC (BEAKER) (test 33.7 GM/DL 32.3-36.5 ggcg=925) RED CELL DISTRIBUTION WIDTH (BEAKER) (test 12.6 % 11.6-14.4 pfcq=226) PLATELET COUNT (BEAKER) (test cjqm=051) 273 K/CU MM 150-450 MEAN PLATELET VOLUME (BEAKER) (test vwbu=902) 8.8 fL 9.4-12.4 NUCLEATED RED BLOOD CELLS (BEAKER) (test 0 /100 WBC 0-0 kisc=583) NEUTROPHILS RELATIVE PERCENT (BEAKER) (test 58 % tgxy=207) LYMPHOCYTES RELATIVE PERCENT (BEAKER) (test 31 % qlmf=302) MONOCYTES RELATIVE PERCENT (BEAKER) (test 8 % gfoe=759) EOSINOPHILS RELATIVE PERCENT (BEAKER) (test 1 % csli=990) BASOPHILS RELATIVE PERCENT (BEAKER) (test 1 % yqld=499) NEUTROPHILS ABSOLUTE COUNT (BEAKER) (test 6.96 K/ L 1.78-5.38 labc=323) LYMPHOCYTES ABSOLUTE COUNT (BEAKER) (test 3.73 K/ L 1.32-3.57 jtbo=214) MONOCYTES ABSOLUTE COUNT (BEAKER) (test 0.99 K/ L 0.30-0.82 hctz=907) EOSINOPHILS ABSOLUTE COUNT (BEAKER) (test 0.15 K/ L 0.04-0.54 nhpp=796) BASOPHILS ABSOLUTE COUNT (BEAKER) (test 0.06 K/ L 0.01-0.08 fqya=318) IMMATURE GRANULOCYTES-RELATIVE PERCENT (BEAKER) 0 % 0-1 (test ojxo=7226)
--- OUTSIDE RECORDS SUMMARY | 2019-01-22 17:15 | XMS REPORT | Clinical Summary ---
:1980 Author Organization [facility] Address [facility] [place] [address] Care Team Providers Name Role Phone Unavailable [...] Seizure ( Primary Dx) 09/04/2018 Travel after 01/21/2018 Social History Tobacco Use Types Packs/Day Years Used Date Never Assessed Sex Assigned at Date Recorded Not on file Job Start Date Occupation Industry Not on file Not on file Not on file Travel History Travel Start Travel End No recent travel history available. Last Filed Vital Signs Vital Sign Reading Time Taken Comments Blood Pressure 104/69 09/04/2018 11:00 PM [facility] Pulse 87 09/04/2018 11:00 PM [facility] Temperature 36.6 C (97.9 F) 09/04/2018 11:00 PM [facility] Respiratory Rate 18 09/04/2018 11:00 PM [facility] Oxygen Saturation 96% 09/04/2018 11:00 PM [facility] Inhaled Oxygen Concentration - - Weight - - Height - - Body Mass Index - - Plan of Treatment Health Maintenance Due Date Last Done Comments IMM Influenza Seasonal May to September (>/=19 yrs) 05/01/2019 Procedures Procedure Name Priority Date/Time Associated Diagnosis Comments 12 LEAD EKG Routine 09/04/2018 8:49 PM Seizure Results for this [facility] procedure are in the results section. 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 Measurements IntervalsAxis Rate: 108P: 34 NC: 131QRS: 57 QRSD: 92 T: 35 QT: 327 QTc:438 Interpretive Statements SINUS TACHYCARDIA ABNORMAL RHYTHM ECG Reviewed by Electronically Signed On 09-05-2018 4:34:05 BRUSHER by Lavon Villarreal M.D. Specimen Performing Organization Address City/State/Zipcode Phone Number SMS after 01/21/2018 Insurance Payer Benefit Plan / Subscriber ID Effective Dates Phone Address Type Group HD SELF-PAY xxxxxxxxx 2018-[facility] [phone] SELF-PAY UNSCREENED t [address] [place] [address]
[2019-01-22 18:12] LABS: Urine Blood 3+ (NEG); Urine Glucose NEGATIVE (NEG); Urine Protein 3+ (NEG)
[2019-01-22 18:21] LABS: Absolute Lymphocytes (CBC) 2.9 K/uL (0.7-4.9); Basophils % 0.8 % (0-1.3); Eosinophils % 1.5 % (0-4.4); Hematocrit 41.6 % (39.6-49.0); Lymphocytes % 23.7 % (15.3-44.8); MPV 7.9 fL (7.6-11.3); Monocytes % 10.5 % (3.3-12.3); RBC Red Blood Cell Count 4.89 M/uL (4.33-5.43)
[2019-01-22] MEDS ORDERED: NA CHLORIDE 0.9% 1,000 ML ONE (18:22)
[2019-01-22] MEDS ORDERED: FENTANYL CITR 100 MCG/2 ML ONE (18:22)
[2019-01-22 18:38] LABS: Urine Bacteria <20 /HPF (NONE SEEN); Urine Culture Reflex Order NOT NEEDED; Urine RBC TNTC /HPF (NONE SEEN)
[2019-01-22 18:56] LABS: Potassium 3.9 mmol/L (3.5-5.1)
--- NOTE | 2019-01-22 20:35 | ER ---
Nurse's Notes [facility] Name: Yonatan Ramos Age: 38 yrs Sex: Male : 1980 Arrival Date: 01/22/2019 Time: 17:09 Bed 26 Private MD: Kaushik Castano E Diagnosis: Hydronephrosis with renal and ureteral calculous obstruction-5mm left proximal ureter;Type 1 diabetes mellitus Presentation: 01/22 17:20 Presenting complaint: Patient states: about 5 days ago, i came in and had a CT done and hj they found a stone and a stent was placed last Tuesday, and now the stent was exposed thru the head of my penis, i took it out an came here; reports abd pain radiates to the back;. Transition of care: patient was not received from another setting of care. Onset of symptoms was January 22, 2019. Risk Assessment: Do you want to hurt yourself or someone else? Patient reports no desire to harm self or others. Initial Sepsis Screen: Does the patient meet any 2 criteria? No. Patient's initial sepsis screen is negative. Does the patient have a suspected source of infection? No. Patient's initial sepsis screen is negative. Care prior to arrival: None. 17:20 Method Of Arrival: Ambulatory 17:20 Acuity: ANDREAS 3 hj Historical: - Allergies: 17:22 No Known Allergies; hj - Home Meds: 18:10 Dilantin Oral 300 mg twice a day [Active]; Keppra Oral [Active]; mg2 - PMHx: 17:22 Back pain; Chronic pain; Diabetes - IDDM; Nerve damage; Seizures; hj - PSHx: 17:22 Lithotripsy; right kidney surgery; hj - Immunization history:: Flu vaccine status is unknown. - Social history:: Smoking status: unknown. - Ebola Screening: : No symptoms or risks identified at this time. Screenin:42 Abuse screen: Denies threats or abuse. Denies injuries from another. Nutritional mg2 screening: No deficits noted. Tuberculosis screening: No symptoms or risk factors identified. Fall Risk None identified. Assessment: 17:42 General: Appears in no apparent distress. comfortable, Behavior is calm, cooperative. mg2 Pain: Complains of pain in back and abdomen Pain does not radiate. Pain currently is 8 out of 10 on a pain scale. Quality of pain is described as aching, Pain began gradually, Is intermittent. Neuro: Level of Consciousness is awake, alert, obeys commands, Oriented to person, place, time, situation. Cardiovascular: Capillary refill < 3 seconds Patient's skin is warm and dry. Respiratory: Airway is patent Respiratory effort is even, unlabored, Respiratory pattern is regular, symmetrical. : Urine is blood tinged, Reports pain in suprapubic area in lower back. EENT: No signs and/or symptoms were reported regarding the EENT system. Derm: Skin is intact, is healthy with good turgor, Skin is pink, warm \T\ dry. normal. Musculoskeletal: Circulation, motion, and sensation intact. Capillary refill < 3 seconds. 19:24 GI: Bowel sounds present X 4 quads. Abd is soft and non tender. mg2 22:04 Reassessment: patient agreed to be admitted. pain reported and addressed. mg2 Vital Signs: 17:22 BP 132 / 71; Pulse 92; Resp 18; Temp 98.1(O); Pulse Ox 96% on R/A; Weight 86.18 kg; hj Height 5 ft. 6 in. (167.64 cm); Pain 10/10; 19:24 BP 109 / 70; Pulse 73; Resp 18; Temp 98; Pulse Ox 100% on R/A; mg2 22:05 BP 120 / 85; Pulse 62; Resp 18; Temp 98; Pulse Ox 100% on R/A; Pain 6/10; mg2 17:22 Body Mass Index 30.67 (86.18 kg, 167.64 cm) ED Course: 17:09 Patient arrived in ED. mr 17:09 Kaushik Castano MD is Private Physician. mr 17:22 Triage completed. hj 17:22 Arm band placed on left wrist. hj 17:24 Preethi Kelley FNP-C [facility] snw 17:24 Hemal Montgomery MD is Attending Physician. snw 17:32 Darci Winchester, NABILA is Primary Nurse. mg2 17:49 No provider procedures requiring assistance completed. mg2 17:50 Patient has correct armband on for positive identification. mg2 18:[address] nj 18:10 Inserted saline lock: 20 gauge in right antecubital area, using aseptic technique. mg2 18:34 CT Stone Protocol In Process Unspecified. EDMS 20:32 Ale Mccartney MD is Hospitalizing Provider. snw 21:02 Abdomen 1 View (KUB) XRAY In Process Unspecified. EDMS 22:36 Patient admitted, IV remains in place. mg2 Administered Medications: 17:51 CANCELLED (other intervention used): [place] 5 mg-325 mg 1 tabs PO once snw 18:26 Drug: NS 0.9% 1000 ml Route: IV; Rate: 1 bolus; Site: right antecubital; mg2 20:31 Follow up: Response: No adverse reaction; IV Status: Completed infusion; IV Intake: mg2 1000ml 18:26 Drug: fentaNYL (PF) 50 mcg Route: IVP; Site: right antecubital; mg2 20:31 Follow up: Response: No adverse reaction; Marked relief of symptoms mg2 20:43 Drug: Rocephin 1 grams Route: IV; Rate: calculated rate; Site: right antecubital; mg2 22:51 Follow up: Response: No adverse reaction; IV Status: Completed infusion mg2 21:52 Drug: morphine 4 mg Route: IVP; Site: right antecubital; mg2 22:51 Follow up: Response: No adverse reaction; Marked relief of symptoms mg2 Intake: 20:31 IV: 1000ml; Total: 1000ml. mg2 Outcome: 20:34 Decision to Hospitalize by Provider. snw 22:36 Admitted to Med/surg accompanied by glenn, via wheelchair, room 209, with chart, Report mg2 called to NABILA Yuen 22:36 Condition: stable 22:36 Instructed on the need for admit, Demonstrated understanding of instructions. 23:14 Patient left the ED. mg2 Signatures: Dispatcher [employer] EDGA Preethi Kelley, ULTIMATE HOOPS TRAINER-C ULTIMATE HOOPS TRAINER-Csnw Kamini MurilloLester, RN RN Hermilo Eason Michele, RN RN mg2 Corrections: (The following items were deleted from the chart) 17:24 17:22 Pulse 92bpm; Resp 18bpm; Pulse Ox 96% RA; Temp 98.1F Oral; 86.18 kg; Height 5 ft. hj 6 in.; BMI: 30.6; Pain 10/10; hj
--- NOTE | 2019-01-22 20:35 | EDPHYS ---
Physician Documentation [facility] Name: Yonatan Ramos Age: 38 yrs Sex: Male : 1980 Arrival Date: 01/22/2019 Time: 17:09 Bed 26 Private MD: Kaushik Castano E ED Physician Hemal Montgomery HPI: 01/22 18:03 This 38 yrs old Male presents to ER via Ambulatory with complaints of snw Abdominal Pain. 18:03 The patient presents with abdominal pain in the left lower quadrant. Onset: The snw symptoms/episode began/occurred suddenly, and became worse this morning. The symptoms do not radiate. Associated signs and symptoms: Pertinent positives: urinated urethral stent out this am. The symptoms are described as constant. Modifying factors: The symptoms are alleviated by nothing. Severity of pain: At its worst the pain was severe. The patient has not experienced similar symptoms in the past. The patient has been recently seen by a physician: saw urology for ureteral calculus. Historical: - Allergies: 17:22 No Known Allergies; hj - Home Meds: 18:10 Dilantin Oral 300 mg twice a day [Active]; Keppra Oral [Active]; mg2 - PMHx: 17:22 Back pain; Chronic pain; Diabetes - IDDM; Nerve damage; Seizures; hj - PSHx: 17:22 Lithotripsy; right kidney surgery; hj - Immunization history:: Flu vaccine status is unknown. - Social history:: Smoking status: unknown. - Ebola Screening: : No symptoms or risks identified at this time. ROS: 18:02 Constitutional: Negative for fever, chills, and weight loss, Eyes: Negative for injury, snw pain, redness, and discharge, ENT: Negative for injury, pain, and discharge, Neck: Negative for injury, pain, and swelling, Cardiovascular: Negative for chest pain, palpitations, and edema, Respiratory: Negative for shortness of breath, cough, wheezing, and pleuritic chest pain, Back: Negative for injury and pain, MS/Extremity: Negative for injury and deformity, Skin: Negative for injury, rash, and discoloration, Neuro: Negative for headache, weakness, numbness, tingling, and seizure. 18:02 Abdomen/GI: Positive for abdominal pain, nausea, constipation. Exam: 18:01 Constitutional: This is a well developed, well nourished patient who is awake, alert, snw and in no acute distress but moderate pain, unable to remain still. Head/Face: Normocephalic, atraumatic. Eyes: Pupils equal round and reactive to light, extra-ocular motions intact. Lids and lashes normal. Conjunctiva and sclera are non-icteric and not injected. Cornea within normal limits. Periorbital areas with no swelling, redness, or edema. ENT: Nares patent. No nasal discharge, no septal abnormalities noted. Tympanic membranes are normal and external auditory canals are clear. Oropharynx with no redness, swelling, or masses, exudates, or evidence of obstruction, uvula midline. Mucous membranes moist. Neck: Trachea midline, no thyromegaly or masses palpated, and no cervical lymphadenopathy. Supple, full range of motion without nuchal rigidity, or vertebral point tenderness. No Meningismus. Chest/axilla: Normal chest wall appearance and motion. Nontender with no deformity. No lesions are appreciated. Cardiovascular: Regular rate and rhythm with a normal S1 and S2. No gallops, murmurs, or rubs. Normal PMI, no JVD. No pulse deficits. Respiratory: Lungs have equal breath sounds bilaterally, clear to auscultation and percussion. No rales, rhonchi or wheezes noted. No increased work of breathing, no retractions or nasal flaring. Back: No spinal tenderness. No costovertebral tenderness. Full range of motion. Skin: Warm, dry with normal turgor. Normal color with no rashes, no lesions, and no evidence of cellulitis. MS/ Extremity: Pulses equal, no cyanosis. Neurovascular intact. Full, normal range of motion. Neuro: Awake and alert, GCS 15, oriented to person, place, time, and situation. Cranial nerves II-XII grossly intact. Motor strength 5/5 in all extremities. Sensory grossly intact. Cerebellar exam normal. Normal gait. 18:01 Abdomen/GI: Inspection: abdomen appears normal, Bowel sounds: normal, Palpation: moderate abdominal tenderness, severe abdominal tenderness, in the left lower quadrant. Vital Signs: 17:22 BP 132 / 71; Pulse 92; Resp 18; Temp 98.1(O); Pulse Ox 96% on R/A; Weight 86.18 kg; hj Height 5 ft. 6 in. (167.64 cm); Pain 10/10; 19:24 BP 109 / 70; Pulse 73; Resp 18; Temp 98; Pulse Ox 100% on R/A; mg2 22:05 BP 120 / 85; Pulse 62; Resp 18; Temp 98; Pulse Ox 100% on R/A; Pain 6/10; mg2 17:22 Body Mass Index 30.67 (86.18 kg, 167.64 cm) hj MDM: 17:25 Patient medically screened. snw 20:29 Data reviewed: vital signs, nurses notes. Data interpreted: Pulse oximetry: on room air snw is 100 %. Interpretation: normal. Counseling: I had a detailed discussion with the patient and/or guardian regarding: the historical points, exam findings, and any diagnostic results supporting the discharge/admit diagnosis, lab results, radiology results, the need for further work-up and treatment in the hospital. Physician consultation: Hever Saleh MD was called at 20:29, was contacted at 20:29, regarding consult, patient's condition, would like admission per Dr. Ale Mccartney MD. 20:34 Physician consultation: Ale Mccartney MD was called at 20:34, was contacted at 20:34, snw regarding admission, to the telemetry unit. 01/22 17:25 Order name: Urine Culture sn 01/22 17:25 Order name: Urine Microscopic Only; Complete Time: 18:39 snw 01/22 17:42 Order name: Urine Dipstick--Ancillary (enter results); Complete Time: 18:13 01/22 17:52 Order name: Basic Metabolic Panel; Complete Time: 19:01 snw 01/22 17:52 Order name: CBC with Diff; Complete Time: 18:32 snw 01/22 17:52 Order name: CT Stone Protocol [facility] 01/22 17:25 Order name: Urine Dipstick-Ancillary (obtain specimen); Complete Time: 17:41 snw 01/22 20:24 Order name: Abdomen 1 View (KUB) XRAY [facility] 01/22 22:09 Order name: CONS Physician Consult EDDC 01/22 17:52 Order name: Labs collected and sent; Complete Time: 18:09 snw Administered Medications: 17:51 CANCELLED (other intervention used): [place] 5 mg-325 mg 1 tabs PO once snw 18:26 Drug: NS 0.9% 1000 ml Route: IV; Rate: 1 bolus; Site: right antecubital; mg2 20:31 Follow up: Response: No adverse reaction; IV Status: Completed infusion; IV Intake: mg2 1000ml 18:26 Drug: fentaNYL (PF) 50 mcg Route: IVP; Site: right antecubital; mg2 20:31 Follow up: Response: No adverse reaction; Marked relief of symptoms mg2 20:43 Drug: Rocephin 1 grams Route: IV; Rate: calculated rate; Site: right antecubital; mg2 22:51 Follow up: Response: No adverse reaction; IV Status: Completed infusion mg2 21:52 Drug: morphine 4 mg Route: IVP; Site: right antecubital; mg2 22:51 Follow up: Response: No adverse reaction; Marked relief of symptoms mg2 Disposition: 01/23 07:05 Co-signature as Attending Physician, Hemal Montgomery MD. rn Disposition: 01/22/19 20:34 Hospitalization ordered by Ale Mccartney for Inpatient Admission. Preliminary diagnosis are Hydronephrosis with renal and ureteral calculous obstruction - 5mm left proximal ureter, Type 1 diabetes mellitus. - Bed requested for Telemetry/MedSurg (Inpatient). - Status is Inpatient Admission. mg2 - Condition is Stable. - Problem is an acute exacerbation. - Symptoms have worsened. UTI on Admission? Yes Signatures: Dispatcher [employer] EDMS Preethi Kelley, POST GRADUATE INTERN-C POST GRADUATE INTERN-Csnw Hemal Montgomery MD MD rn Joaquin, Henry, RN RN hj Gardose, Michele, RN RN [facility] Ailyn Eduardo ar5 Corrections: (The following items were deleted from the chart) 01/22 17:51 17:49 [place] 5 mg-325 mg 1 tabs PO once ordered. snw snw 22:18 20:34 Hospitalization Ordered by Ale Mccartney MD for Inpatient Admission. Preliminary ar5 diagnosis is Hydronephrosis with renal and ureteral calculous obstruction - 5mm left proximal ureter; Type 1 diabetes mellitus. Bed requested for Telemetry/MedSurg (Inpatient). Status is Inpatient Admission. Condition is Stable. Problem is an acute exacerbation. Symptoms have worsened. UTI on Admission? Yes. snw 23:14 22:18 01/22/2019 20:34 Hospitalization Ordered by Ale Mccartney MD for Inpatient mg2 Admission. Preliminary diagnosis is Hydronephrosis with renal and ureteral calculous obstruction - 5mm left proximal ureter; Type 1 diabetes mellitus. Bed requested for Telemetry/MedSurg (Inpatient). Status is Inpatient Admission. Condition is Stable. Problem is an acute exacerbation. Symptoms have worsened. UTI on Admission? Yes. ar5
[2019-01-22] MEDS ORDERED: CEFTRIAXONE/SWI 1gm 1 GM/10 ML SYR ONE (20:55)
[2019-01-22] MEDS ORDERED: MORPHINE 4 MG/ML SYR ONE (21:54)
[2019-01-22] MEDS ORDERED: ACETAMINOPHEN 500 MG TAB PO PRN (22:02)
[2019-01-22] MEDS ORDERED: ONDANSETRON 4 MG/2 ML VIAL IV PRN (22:02)
[2019-01-22] MEDS: NA CHLORIDE 0.9% 1,000 ML IV SCH (23:17)
[2019-01-22] MEDS ORDERED: NA CHLORIDE 0.9% 50 ML ONE (23:20)
[2019-01-23] MEDS: CEFOXITIN SODIUM 1 GM/VIAL IVPB SCH ×2 (00:52→05:43)
[2019-01-23] MEDS ORDERED: NA CHLORIDE 0.9% 50 ML ONE (00:59)
[2019-01-23] MEDS: HYDROMORPHONE HCL 1 MG/ML INJ IV PRN ×4 (01:42→14:05)
[2019-01-23 05:57] LABS: Absolute Lymphocytes (CBC) 3.7 K/uL (0.7-4.9); Basophils % 0.7 % (0-1.3); Eosinophils % 3.2 % (0-4.4); Hematocrit 35.3 % (39.6-49.0); Lymphocytes % 37.9 % (15.3-44.8); MPV 7.6 fL (7.6-11.3); Monocytes % 8.2 % (3.3-12.3); RBC Red Blood Cell Count 4.19 M/uL (4.33-5.43)
[2019-01-23 06:14] LABS: Bicarbonate 28 mmol/L (21-32); Glucose Level 94 mg/dL (74-106); Sodium Level 143 mmol/L (136-145)
[2019-01-23 06:15] LABS: ALT/SGPT 16 U/L (12-78); AST/SGOT 8 U/L (15-37); Albumin 3.2 g/dL (3.4-5.0); Alkaline Phosphatase 67 U/L (45-117); BUN Blood Urea Nitrogen 8 mg/dL (7-18); Bilirubin Total 0.5 mg/dL (0.2-1.0); Magnesium 2.2 mg/dL (1.8-2.4); Phosphorus 3.6 mg/dL (2.5-4.9); Protein, Total 6.1 g/dL (6.4-8.2)
[2019-01-23] MEDS: NA CHLORIDE 0.9% 1,000 ML IV SCH ×2 (08:15→22:51)
[2019-01-23] MEDS: ENOXAPARIN 30 MG/0.3 ML SQ SCH (08:16)
--- NOTE | 2019-01-23 09:03 | RAD REPORT ---
EXAM DESCRIPTION: RAD - Abdomen 1 View (KUB) - 01/22/2019 9:04 pm CLINICAL HISTORY: Kidney stone, self removal of a stent, abdominal pain COMPARISON: CT study January 22 FINDINGS: A 4 millimeter calcification is present superimposed on the L4 left transverse process. Th is matches the size and location of the left ureteral calculus detailed on the earlier CT study. Lowe r pole right renal calculi seen on the CT study are not clearly evident on this examination. Overlyin g bowel content limits detail. Numerous pelvic floor calcifications are present. These phleboliths ma tch up with the CT study. No obstruction, free air or pneumatosis. Bowel gas pattern is nonspecific. No significant bony findings IMPRESSION: Approximately 4 millimeter calcification is identifiable superimposed on the L4 left tra nsverse process. Mid abdomen calcification corresponds in size and location to the obstructing left ureteral calculus detailed on the January 22 CT study.
--- NOTE | 2019-01-23 09:28 | P.HP ---
Certification for Inpatient Patient admitted to: Observation With expected LOS: <2 Midnights Patient will require the following post-hospital care: None Practitioner: I am a practitioner with admitting privileges, knowledge of patient current condition, hospital course, and medical plan of care. Services: Services provided to patient in accordance with Admission requirements found in Title 42 Section 412.3 of the Code of Federal Regulations Patient History Date of Service: 01/22/19 Reason for admission: Accidental removal of J-stent History of Present Illness: Patient is a in 38-year-old gentleman who came into the hospital after he had accidentally removed pulled out his J stent. He said he had gone to the restroom and he was surprised to see that his stent was hanging down. He was having a lot of pain so he went and removed the stent completely. He decided to come into the hospital could he was having some hematuria. The stent was initially placed because of nephrolithiasis. He had a stent placed a few years ago because of a right kidney stone which was 5 mm. This stent was placed for a 6 mm nephrolithiasis of the left kidney. Patient will be admitted to the hospital for replacement. He does have a lot of pain whenever the stents are in place. He is worried about having pain once again. He is wondering if there is any other way to get the stone removed. We will have Urology see him in the morning regarding this. Allergies No Known Allergies Allergy (Verified 11/09/17 12:51) - Past Medical/Surgical History Has patient received pneumonia vaccine in the past: No Diabetic: No -: Seizures -: Kidney Stones -: urinary stent placement - Family History Father Family History: Reviewed- Non-Contributory - Social History Smoking Status: Former smoker Alcohol use: Yes CD- Drugs: No Caffeine use: Yes Place of Residence: Home Review of Systems 10-point ROS is otherwise unremarkable Physical Examination - Vital Signs Temperature: 98.1 F Blood Pressure: 109/73 Pulse: 49 Respirations: 16 Pulse Ox (%): 97 - Physical Exam General: Alert, In no apparent distress, Oriented x3 HEENT: Atraumatic, PERRLA, Mucous membr. moist/pink, EOMI, Sclerae nonicteric Neck: Supple, 2+ carotid pulse no bruit, No LAD, Without JVD or thyroid abnormality Respiratory: Clear to auscultation bilaterally, Normal air movement Cardiovascular: Regular rate/rhythm, Normal S1 S2, No murmurs Gastrointestinal: Normal bowel sounds, Soft and benign, Non-distended, No rebound, No guarding, Tenderness Musculoskeletal: No clubbing, No swelling, No tenderness Integumentary: No rashes Neurological: Normal gait, Normal speech, Normal strength at 5/5 x4 extr, Normal tone, Sensation intact, Cranial nerves 3-12 intact, Normal affect Lymphatics: No axilla or inguinal lymphadenopathy - Studies Laboratory Data (last 24 hrs) 01/22/19 18:00: WBC 12.1 H D, Hgb 13.4 L, Hct 41.6, Plt Count 285 01/22/19 18:00: Sodium 142, Potassium 3.9, BUN 10, Creatinine 0.97, Glucose 94 Assessment & Plan - Problems (Diagnosis) (1) Nephrolithiasis Current Visit: Yes Status: Acute (2) Encounter for removal of ureteral stent Current Visit: Yes Status: Acute - Plan Plan: 1. IV hydration 2. urology consultation 3. IV antibiotics as needed 4. Pain control 5. GI and DVT prophylaxis Discharge Plan: Home Plan to discharge in: 24 Hours - Advance Directives Does patient have a Living Will: No Does patient have a Durable POA for Healthcare: No - Code Status/Comfort Care Code Status Assessed: Yes Code Status: Full Code Critical Care: No Time Spent Managing PTS Care (In Minutes): 45
[2019-01-23] MEDS ORDERED: levETIRAcetam 500 MG in NA CHLORIDE 0.9% 100 ML IV ONE (10:14)
[2019-01-23] MEDS ORDERED: Ringers Lactate 1,000 ML IV ONE (10:43)
[2019-01-23] MEDS ORDERED: PROPOFOL 200 MG/20 ML VIAL IV ONE (11:08)
[2019-01-23] MEDS ORDERED: LIDOCAINE 2% MPF 5 ML VIAL ONE (11:09)
[2019-01-23] MEDS ORDERED: MIDAZOLAM HCL 2 MG/2 ML INJ ONE (11:09)
[2019-01-23] MEDS ORDERED: FENTANYL CITR 100 MCG/2 ML ONE (11:09)
[2019-01-23] MEDS: CEFOXITIN/SWI 1gm 1 GM/10 ML SYR IV SCH ×4 (11:10→23:00)
[2019-01-23] MEDS ORDERED: ONDANSETRON 4 MG/2 ML VIAL ONE (11:10)
[2019-01-23] MEDS ORDERED: GLYCOPYRROLATE 0.2 MG/ML SYR ONE (11:57)
--- NOTE | 2019-01-23 12:06 | RAD REPORT ---
EXAM DESCRIPTION: CT - Stone Protocol - 01/23/2019 1:19 am CLINICAL HISTORY: 38 years Male Recent history of urolithiasis with early stent removal. Abdominal pain. TECHNIQUE: Contiguous axial images obtained through the abdomen and pelvis without IV contrast. Co jet and sagittal reformatted images provided. This CT exam was performed according to our departmental dose-optimization program, which includes on e or more of the following dose reduction techniques: automated exposure control, adjustment of the m A and/or kV according to patient size, and/or use of iterative reconstruction technique. COMPARISON: Report from the prior exam dated 01/19/2019. Images not provided for comparison. FINDINGS: Again seen is mild left hydronephrosis due to a 5 mm calculus in the left proximal ureter. Slight diffuse periureteral stranding on the left. There are three punctate nonobstructing intrarenal calculi in the lower pole of the right kidney. No right ureteral or bladder calculi. No right-sided hydronephrosis. The urinary bladder is decompressed . Minimal left basilar atelectasis. Trace left pleural effusion. The unenhanced liver, biliary tree, gallbladder, pancreas, spleen, and adrenal glands are normal. There is trace free fluid in the pelvis. There is no bowel inflammation, obstruction, free intraperit manriquez air, or abscess. The appendix is normal. There are no aggressive osseous lesions. IMPRESSION: Mild left hydronephrosis due to a 5 mm calculus in the left proximal ureter. Nonobstructing intrarenal calculi on the right. No other urinary calculi. Slight diffuse periureteral stranding on the left and trace free fluid in the pelvis. While this may be related to the recent presence and absence of a ureteral stent, infection should be excluded with urinalysis. Trace left pleural effusion. Electronically signed by: Cristiana Up MD 01/22/2019 7:08 PM CDT Due to temporary technical issues with the PACS/Fluency reporting system, reports are being signed by the in house radiologist as a courtesy to ensure prompt reporting. The interpreting radiologist is f ully responsible for the content of the report.
[2019-01-23] MEDS: MEPERIDINE HCL 50 MG/ML AMP ONE ×4 (12:17→12:33)
--- NOTE | 2019-01-23 13:33 | CON ---
This is a patient who had a cystoscopy, left stent placement on 01/19/2019. The patient pulled out his stent yesterday, there was lots of pain and was admitted. CT scan and KUB showed 4 mm stone at the level of L4 on the left. I am recommending ESWL for the patient plus or minus stent. He said at this time that he would rather have stone pain over a stent if he needs one. If ESWL does not work, he would possibly need ureteroscopy. He had a seizure after the last cysto stent placement due to not taking his seizure medication. Past Medical History: Significant for seizures, chronic back pain, diabetes, but sugars are normal, history of nerve damage. Home Medications: Keppra, Dilantin. Allergies: NO KNOWN DRUG ALLERGIES. Past Surgical History: Ureteroscopy, right knee surgery. Immunizations: Up-to-date. Social History: Noncontributory. Review of Systems: Otherwise normal. Physical Examination: General: The patient is afebrile, stable. HEENT: Atraumatic normocephalic. Lungs: Clear. Heart: S1, S2. Abdomen: Soft, nontender. Extremities: Normal range of motion. Laboratory Data: White count down to 9.7 from 12.1, H and H is 11.6 and 35.3, platelet count 240. Chemistry: Sodium 143, potassium 4.0, chloride 110, carbon dioxide 28, BUN 8, creatinine 0.83, GFR greater than 90, glucose 94. Urine pH 7.0, specific gravity 1020. 3+ blood, leukocyte esterase trace, total protein 3+. Assessment: The patient is status post stent placement. Accidently removed stent. Another 4 mm stone at the level of L4 on the left with severe pain. Plan: Plan is for a left ESWL, possible stent. He wants to possibly skip the stent if possible. His next option would be ureteroscopy after that discussed all general information, alternatives, and risks. MARIN/JOANNE Voice ID: [id number] Report ID: [id number] VALERIA
--- NOTE | 2019-01-23 14:36 | PN ---
Date of Progress Note: 01/23/2019 Subjective: The patient seen and examined. Chart reviewed and case discussed with RN and Dr. Saleh. The patient is scheduled for lithotripsy today. The patient does report pain, which is controlled with medications. Continues to have some blood-tinged urine. Medications: List reviewed. Physical Examination: Vital Signs: Temperature 98.1, heart rate 49, blood pressure 109/73, respirations 16, O2 97% on room air. General: Awake, alert, oriented x3. Obese male, in mild distress. CV: S1 and S2. Regular rate and rhythm. Peripheral pulses present. Respiratory: Clear to auscultation bilaterally. No wheezing or stridor. No use of accessory muscles. Gastrointestinal: Abdomen is soft, nontender, nondistended. Positive bowel sounds. The patient has left flank tenderness. Extremities: No clubbing, cyanosis, or edema. Neurologic: Nonfocal. Laboratory Data: Sodium 143, potassium 4, chloride 110, CO2 28, BUN 8, creatinine 0.83, glucose 94, calcium 8.7, phosphorus 3.6, magnesium 2.2. WBC 9.7, H and H 11.6 and 35.3, platelets 240. Urine culture so far shows no growth. Assessment And Plan: A 38-year-old male with: 1. Nephrolithiasis. The patient had stent placement recently, which he took out as it was slightly exposed. The patient now going for lithotripsy and cystoscopy by Dr. Saleh. The patient continues to have left flank tenderness, pain, and abnormal UA. We will continue with IV antibiotics. Follow up on cultures. 2. Encounter removal of ureteral stent. 3. Obesity, BMI 33.9. 4. History of seizure disorder, on Keppra. We will give dose IV prior to surgery. Plan: Follow up status post lithotripsy. Continue SCDs for DVT prophylaxis. Follow up with Urology recommendations regarding discharge. ADDENDUM: Patient had rapid response called due to seizure and non responsiveness. Patient given ativan 1mg IV, moved to room closer to nursing station. Patients condition improved. Complained of LLQ abdominal pain, xray and EKG ordered. Continue to monitor. SA/MODL Voice ID: [id number] Report ID: [id number] [facility]
[2019-01-23] MEDS: levETIRAcetam 500 MG TAB PO SCH ×2 (15:02→20:47)
[2019-01-23] MEDS ORDERED: HYDROMORPHONE HCL 1 MG/ML INJ IV ONE (15:56)
[2019-01-23] MEDS ORDERED: LORazepam 2 MG/ML VIAL IV ONE (16:11)
[2019-01-23] MEDS ORDERED: LORazepam 2 MG/ML VIAL IV PRN (16:27)
--- NOTE | 2019-01-23 16:40 | RAD REPORT ---
EXAM DESCRIPTION: RAD - Chest Single View - 01/23/2019 4:32 pm CLINICAL HISTORY: abdominal pain Chest pain. COMPARISON: Abdomen 1 View (KUB) dated 01/23/2019; Abdomen 1 View (KUB) dated 01/22/2019; Chest Single View dated 10/18/2018; Chest Pa And Lat (2 Views) dated 02/14/2017 FINDINGS: Portable technique limits examination quality. The lungs are grossly clear. The heart is normal in size. No displaced fractures. IMPRESSION: No acute intrathoracic process suspected.
--- NOTE | 2019-01-23 16:41 | RAD REPORT ---
EXAM DESCRIPTION: RAD - Abdomen 1 View (KUB) - 01/23/2019 4:34 pm CLINICAL HISTORY: abdominal pain Pain COMPARISON: <Comparisons> FINDINGS: The bowel gas pattern is non-obstructive. No evidence of free air or pneumatosis. No suspi cious calcifications. No significant bony findings. IMPRESSION: Negative examination.
[2019-01-23] MEDS ORDERED: TAMSULOSIN 0.4 MG SR CAP PO SCH (21:00)
[2019-01-23] MEDS: MORPHINE 2 MG/ML SYR IV PRN (22:56)
[2019-01-24] MEDS: MORPHINE 2 MG/ML SYR IV PRN ×2 (04:20→08:49)
[2019-01-24] MEDS: NA CHLORIDE 0.9% 1,000 ML IV SCH ×3 (05:00→15:00)
[2019-01-24] MEDS: CEFOXITIN/SWI 1gm 1 GM/10 ML SYR IV SCH ×3 (05:04→17:15)
[2019-01-24] MEDS ORDERED: FENTANYL CITR 100 MCG/2 ML IV ONE (05:40)
[2019-01-24 06:14] LABS: Potassium 3.8 mmol/L (3.5-5.1)
[2019-01-24 06:18] LABS: Absolute Lymphocytes (CBC) 3.4 K/uL (0.7-4.9); Basophils % 0.3 % (0-1.3); Eosinophils % 2.2 % (0-4.4); Lymphocytes % 27.6 % (15.3-44.8); MPV 8.2 fL (7.6-11.3); Monocytes % 6.6 % (3.3-12.3); RBC Red Blood Cell Count 4.45 M/uL (4.33-5.43)
[2019-01-24] MEDS ORDERED: HYDROMORPHONE HCL 1 MG/ML INJ IV ONE (07:06)
[2019-01-24] MEDS ORDERED: KETOROLAC 30 MG/ML INJ IV ONE (07:42)
--- NOTE | 2019-01-24 07:55 | EKG ---
Test Date: 2019-01-23 Test Time: 16:24:15 Director Talent: RUBIN MEASUREMENT RESULTS: Intervals: Rate: 51 WY: 134 QRSD: 88 QT: 392 QTc: 361 Cecil: P: 38 WY: 134 QRS: 71 T: 59 INTERPRETIVE STATEMENTS: Sinus bradycardia Otherwise normal ECG Compared to ECG 12/28/2018 17:03:24 Sinus tachycardia no longer present Electronically Signed On 01-24-19 07:54:10 CDT by Mahad Whitney
--- NOTE | 2019-01-24 08:41 | RAD REPORT ---
EXAM DESCRIPTION: CT - Abdomen Pelvis W/Wo Contrast - 01/24/2019 8:15 am CLINICAL HISTORY: abdominal pain, no BM 1 week Flank pain COMPARISON: Stone Protocol dated 01/22/2019 TECHNIQUE: Axial non-contrast CT imaging was performed. Following this, biphasic contrast enhanced i maging through the abdomen and pelvis was performed with coronal and sagittal reformatted images. All CT scans are performed using dose optimization technique as appropriate and may include automated exposure control or mA/KV adjustment according to patient size. FINDINGS: Linear subsegmental atelectasis is present in both posterior lung bases. The liver, spleen, pancreas and adrenal glands are normal. Mild left hydronephrosis and hydroureter is seen. 4 mm calculus is present at the left UVJ. This is p resumably caudal migration of the previously noted stone in the proximal left ureter which also appea rs smaller in size. Several small calculi are present in the right kidney without hydronephrosis. Mil d delay in excretion of contrast from the left kidney is seen. No bowel obstruction, free fluid or abscess. Mild stool is present in the colon. Normal appendix. Sma ll bilateral fat containing inguinal hernias. No fracture or aggressive marrow process is seen. IMPRESSION: 4 mm stone left UVJ with mild left hydronephrosis and hydroureter. Additional punctate right nephrolithiasis.
--- NOTE | 2019-01-24 08:45 | RAD REPORT ---
EXAM DESCRIPTION: US - Renal Ultrasound-Complete - 01/24/2019 8:00 am CLINICAL HISTORY: pain s/p lithotripsy Flank pain COMPARISON: No comparisons FINDINGS: Both kidneys are normal in size, shape and echotexture. The right kidney measures 11.4 x 5.1 x 4.9 cm. Small right renal calculi noted. No hydronephrosis, fo dylon mass or perinephric fluid. The left kidney measures 11.9 x 6.1 x 5.0 cm.. Mild left hydronephrosis. The urinary bladder is incompletely distended without gross abnormality seen. IMPRESSION: Mild left hydronephrosis seen. Punctate right nephrolithiasis.
[2019-01-24] MEDS: MAGNESIUM HYDROXIDE 8% 30 ML PO SCH ×2 (08:48→12:59)
[2019-01-24] MEDS: levETIRAcetam 500 MG TAB PO SCH ×2 (08:49→17:16)
[2019-01-24] MEDS: ENOXAPARIN 30 MG/0.3 ML SQ SCH (08:49)
[2019-01-24] MEDS ORDERED: POTASSIUM 25 MEQ EFFERV TAB PO ONE (09:00)
--- NOTE | 2019-01-24 09:18 | P.PN ---
Date of Service: 01/24/19 Called to the nursing station because patient was having significant pain. He initially had come off the elevator an os on him moaning. Past nurses to check on him. I got a call about 30 min later saying he was writhing in pain on the floor. I went to his room and he was lying on the floor on all 4 extremity. I went to the nurse's station to put some orders and when I came back in to his room he was laying on the floor. I asked the nurse would happened and she said she thought he had a seizure. He started flailing himself all over the place. We supporting his head so we 1 hit the floor. I did a sternal rub and he looked at me and came out of what ever episode he was having. He was crying out in pain. We gave him a dose of Dilaudid and will get an renal ultrasound. I am not sure why he is having so much pain but workup is pending. Will notify Urology
[2019-01-24] MEDS ORDERED: POLYETHYL GLY 3350 17 GM/DOSE PO PRN (09:56)
[2019-01-24] MEDS ORDERED: FLEET ENEMA ADULT PR ONE ×2 (12:39→12:40)
--- NOTE | 2019-01-24 15:56 | PN ---
Date of Progress Note: 01/24/2019 Subjective: The patient was seen and examined. Chart reviewed and case discussed with RN. The patient apparently has been having significant amount of pain, however, is disproportionate to exam, yesterday had a seizure episode was moved closer to the nursing station and had a fast call due to unresponsiveness. The patient has been requiring multiple doses of pain medications including fentanyl and Dilaudid. Case discussed with Dr. Saleh regarding CT scan results, does show 4 mm UVJ stone, which has moved caudally. The patient has refused IV fluids. I explained to him that he requires IV fluids due to his elevated creatinine and to help assist facilitate expulsion of these kidney stones. He voiced understanding. Medications: List reviewed. Physical Examination: Vital Signs: Temperature 97.6, heart rate 62, blood pressure 103/63, respirations 17, O2 95% on room air. General: Awake, alert, oriented x3. Obese male. CVS: S1, S2. Sinus bradycardia. Peripheral pulses present. Respiratory: Moving air well bilaterally. No wheezing. Gastrointestinal: Abdomen is soft. Minimal tenderness to palpation on the left lower quadrant. No rebound or guarding. Extremities: No clubbing, cyanosis, or edema. Neurologic: Nonfocal. Laboratory Data: WBC 12.1, hemoglobin and hematocrit 12.5 and 37, platelets 273 , neutrophils 63%. Sodium 140, potassium 3.8, chloride 107, CO2 24, BUN 8, creatinine 1.31, glucose 90, calcium 8.6. Urine culture showing no growth final. Imaging Studies: Renal ultrasound shows mild left hydronephrosis, punctate right nephrolithiasis. CT scan of the abdomen and pelvis shows 4 mm stone, left UVJ with mild left hydronephrosis and hydroureter. Additional punctate right nephrolithiasis. Assessment: A 38-year-old male with: 1. Nephrolithiasis status post lithotripsy. The patient had removed his stent himself at home. Repeat CT scan shows left ureterovesical junction stone 4 mm and punctate right nephrolithiasis. Stone seems to be moving caudally. The patient will need to continue IV fluids, which he refused earlier to flush out the stone. We will also provide him with oxybutynin to avoid bladder spasms. We will continue Flomax. Appreciate Dr. Saleh's input. 2. Acute seizure. The patient had episode yesterday resulting in fast call. He was nonresponsive. The patient was medicated with Ativan. The patient again seemed to have an episode this morning. The patient has been noncompliant with his Keppra, has been giving his medications to his mother. The patient has been counseled. 3. Obesity, BMI 33.9. 4. Narcotic induced constipation. We will cut down on narcotics. We will provide stool softeners. 5. Acute kidney injury likely due to nephrolithiasis. Renal ultrasound has been reviewed. We will continue with IV fluids and monitor creatinine. Avoid NSAIDs and nephrotoxins. 6. Hydronephrosis on the left, secondary to above. Plan: 1. DVT prophylaxis. Lovenox renally dosed. 3. Likely discharge in the next 24 hours once kidney function improves and the patient is seizure-free. /JOANNE Voice ID: [id number] Report ID: [id number] MTDD
--- NOTE | 2019-01-24 19:22 | PN ---
The patient is trying to pass his 4 mm stone, is now at the left UVJ, per the CT scan done this mimi murillo. He is having some nausea and vomiting and constipation. We tried to give him milk of magnesia, but due to nausea and vomiting, we will switch to enemas plus or minus tap water. The patient will g et IV fluids, ambulate, and Toradol and also Flomax and try to pass the stone. MARIN/JOANNE Voice ID: [id number] Report ID: [id number]
[2019-01-24] MEDS ORDERED: DOCUSATE NA 100 MG CAP PO SCH (21:00)
[2019-01-24] MEDS ORDERED: OXYBUTYNIN CHLORIDE 5 MG TAB PO SCH (21:00)
--- NOTE | 2019-01-26 01:02 | DS ---
Date of Discharge: 01/24/2019 Consultants: Dr. Saleh with Urology. Procedures: On 01/23/[address] Saleh, ESWL on the left. Admitting Diagnoses: 1.Nephrolithiasis. 2.Encounter for removal of ureteral stent. Discharge Diagnoses: 1.Nephrolithiasis, status post lithotripsy. 2.Acute seizure. 3.Obesity, BMI 33.9. 4.Narcotic-induced constipation. 5.Acute kidney injury. 6.Hydronephrosis. Hospital Course: The patient is a 38-year-old male with past medical history of seizure disorder wit h recent double-J stent placement by Dr. Saleh for kidney stone. The patient had gone home, had seen part of the stent sticking out and decided to pull the stent on his own without seeking medical atte ntion. The patient then came into the ER after pulling the stent. The patient had passed the stone, however, repeat imaging showed a stone on the left causing some mild hydronephrosis, 5-mm calculus w ithin the left proximal ureter and there were nonobstructing intrarenal calculi on the right. The pa tient was started on IV fluids. Dr. Saleh was contacted and he was taken to the OR for lithotripsy. The patient did well postoperatively. However, he again had a seizure episode following anesthesia, which he had in previous visit as well. The patient was medicated with Ativan. It should be noted that the patient is noncompliant with his medications. He is supposed to take Keppra 3 times a day, however, shares his pills with his mother. Last dose was on . The patient's condition impro selam. He was complaining of significant amount of pain, which was out of proportion to exam. Therefo re, CT scan was repeated, again showed smaller stone in the UVJ indicating that the stone was traveli ng down and on its way out. However, the patient refused IV fluids and demanded Dilaudid. The patie nt had a repeat seizure episode which improved. The patient was given IV Keppra and was restarted on his p.o. Keppra. The patient was doing well. His kidney function had elevated slightly at 1.3. He was informed regarding benefits of IV fluid hydration to improve his hydronephrosis and acute kidney injury. The patient, however, decided to leave against medical advice. For physical exam findings, please see progress note dictated on the day of discharge. /JOANNE Voice ID: [id number] Report ID: [id number]
== END 2019-01-24 20:35 | disposition left against medical advice (07) | DRG 692 ==
LOC: ER 17:06 → ERHOLD 22:19 → OBSVTOIN 22:19 → 2ND 22:36
PROVIDERS: ADMIT Hospitalist; ATTEND Family Medicine
PROC: 0TF7XZZ Fragmentation in Left Ureter, External Approach (ICD-10-PCS; principal; 2019-01-23 11:00)
DX: N13.2 Hydronephrosis with renal and ureteral calculous obstruction (principal); N17.9 Acute kidney failure, unspecified; G40.909 Epilepsy, unspecified, not intractable, without status epilepticus; E66.9 Obesity, unspecified; K59.03 Drug induced constipation; T40.605A Adverse effect of unspecified narcotics, initial encounter; Z91.14 Patient's other noncompliance with medication regimen; Z68.33 Body mass index [BMI] 33.0-33.9, adult; Z87.442 Personal history of urinary calculi; Z87.891 Personal history of nicotine dependence
CPT/HCPCS: 36415; 50590; 71045; 74018; 74176; 74178; 76377; 76770; 80048; 80053; 81003; 81015; 83735; 84100; 85025; 87086; 87088; 93005; 96361; 96365; 96366; 96375; 99285; G0378; J0694; J0696; J1170; J1650; J1953; J2175; J2250; J2270; J2405; J2704; J3010; J7030; Q9967

== ENCOUNTER 2019-05-07 20:58 | Emergency (ER) | payer SELFPAY ==
[2019-05-07] MEDS ORDERED: LORazepam 2 MG/ML VIAL ONE (21:27)
[2019-05-07] MEDS ORDERED: levETIRAcetam 500 MG TAB ONE (21:58)
--- NOTE | 2019-05-07 22:35 | RAD REPORT ---
EXAM DESCRIPTION: RAD - Shoulder Right 2 View - 05/07/2019 10:04 pm CLINICAL HISTORY: PAIN Seizure history COMPARISON: No comparisons FINDINGS: No fracture or dislocation.
--- NOTE | 2019-05-07 22:38 | EDPHYS ---
Physician Documentation [facility] Name: Yonatan Ramos Age: 39 yrs Sex: Male : 1980 Arrival Date: 05/07/2019 Time: 21:05 Bed 20 Private MD: ED Physician Osmel Tatum HPI: 05/07 22:35 This 39 yrs old Male presents to ER via EMS with complaints of BEHAVIORAL gs PAIN. 22:35 The patient presents after having a possible seizure episode, no post-ictal period is gs described. Character of seizure(s): Motor activity: generalized. Seizure onset: today. Seizure Hx: Seizure medications: Keppra. Associated injury: Right upper extremity: anterior aspect of right shoulder. The patient has experienced similar episodes in the past, several times. Historical: - Allergies: 21:12 No Known Allergies; bb - Home Meds: 21:12 Keppra Oral [Active]; Dilantin Oral 300 mg twice a day [Active]; bb - PMHx: 21:12 Back pain; Chronic pain; Diabetes - IDDM; Nerve damage; Seizures; bb - PSHx: 21:12 Lithotripsy; right kidney surgery; bb - Immunization history:: Adult Immunizations up to date. - Social history:: Smoking status: Patient/guardian denies using tobacco, Patient/guardian denies using alcohol, street drugs. - Ebola Screening: : No symptoms or risks identified at this time. ROS: 22:35 All other systems are negative. gs Exam: 22:35 Head/Face: Normocephalic, atraumatic. Eyes: Pupils equal round and reactive to light, gs extra-ocular motions intact. Lids and lashes normal. Conjunctiva and sclera are non-icteric and not injected. Cornea within normal limits. Periorbital areas with no swelling, redness, or edema. ENT: Nares patent. No nasal discharge, no septal abnormalities noted. Tympanic membranes are normal and external auditory canals are clear. Oropharynx with no redness, swelling, or masses, exudates, or evidence of obstruction, uvula midline. Mucous membranes moist. Neck: Trachea midline, no thyromegaly or masses palpated, and no cervical lymphadenopathy. Supple, full range of motion without nuchal rigidity, or vertebral point tenderness. No Meningismus. Chest/axilla: Normal chest wall appearance and motion. Nontender with no deformity. No lesions are appreciated. Cardiovascular: Regular rate and rhythm with a normal S1 and S2. No gallops, murmurs, or rubs. Normal PMI, no JVD. No pulse deficits. Respiratory: Lungs have equal breath sounds bilaterally, clear to auscultation and percussion. No rales, rhonchi or wheezes noted. No increased work of breathing, no retractions or nasal flaring. Abdomen/GI: Soft, non-tender, with normal bowel sounds. No distension or tympany. No guarding or rebound. No evidence of tenderness throughout. Back: No spinal tenderness. No costovertebral tenderness. Full range of motion. Skin: Warm, dry with normal turgor. Normal color with no rashes, no lesions, and no evidence of cellulitis. Neuro: Awake and alert, GCS 15, oriented to person, place, time, and situation. Cranial nerves II-XII grossly intact. Motor strength 5/5 in all extremities. Sensory grossly intact. Cerebellar exam normal. Normal gait. 22:35 Constitutional: The patient appears alert, awake. 22:35 Musculoskeletal/extremity: Pulses: are normal with no appreciated deficits, Sensation intact. Joints: the right shoulder displays painful range of motion, tenderness. Vital Signs: 21:12 BP 119 / 84; Pulse 99; Resp 16 S; Temp 99(TE); Pulse Ox 99% on R/A; Weight 88.45 kg bb (R); Height 5 ft. 6 in. (167.64 cm) (R); Pain 10/10; 21:30 BP 129 / 86; Pulse 95; Resp 20 S; Pulse Ox 98% on R/A; cc3 22:00 BP 140 / 79; Pulse 102; Resp 20 S; Pulse Ox 97% on R/A; cc3 22:30 BP 128 / 89; Pulse 91; Resp 19 S; Pulse Ox 99% on R/A; cc3 23:00 BP 121 / 79; Pulse 97; Resp 20 S; Pulse Ox 99% on R/A; cc3 21:12 Body Mass Index 31.47 (88.45 kg, 167.64 cm) MDM: 21:46 Patient medically screened. 22:35 Data reviewed: vital signs, nurses notes, radiologic studies. Counseling: I had a gs detailed discussion with the patient and/or guardian regarding: the historical points, exam findings, and any diagnostic results supporting the discharge/admit diagnosis. Response to treatment: the patient's symptoms have resolved after treatment, and as a result, I will discharge patient. 05/07 21:46 Order name: Shoulder Right (2 View) XRAY; Complete Time: 22:38 gs 05/07 21:38 Order name: IV Start; Complete Time: 21:38 aa1 Administered Medications: 21:30 Drug: Ativan 1 mg Route: IVP; Site: left hand; aa1 22:00 Follow up: Response: No adverse reaction; Marked relief of symptoms cc3 22:00 Drug: Keppra 1000 mg Route: PO; cc3 23:00 Follow up: Response: No adverse reaction cc3 Disposition: 05/07/19 22:37 Discharged to Home. Impression: Epilepsy and recurrent seizures. - Condition is Stable. - Discharge Instructions: Seizure, Adult. - Medication Reconciliation Form, Thank You Letter, Antibiotic Education, Prescription Opioid Use form. - Follow up: Willem Yoder MD; When: 2 - 3 days; Reason: Re-evaluation by your physician. Signatures: Dispatcher [employer] EDSusy Thomas RN RN aa1 Simin Ruff RN RN bb Osmel Tatum MD MD Fatoumata Cordova cc3 Corrections: (The following items were deleted from the chart) 23:18 22:37 05/07/2019 22:37 Discharged to Home. Impression: Epilepsy and recurrent seizures. cc3 Condition is Stable. Forms are Medication Reconciliation Form, Thank You Letter, Antibiotic Education, Prescription Opioid Use. Follow up: Willem Yoder; When: 2 - 3 days; Reason: Re-evaluation by your physician. gs
--- NOTE | 2019-05-07 22:38 | ER ---
Nurse's Notes [facility] Name: Yonatan Ramos Age: 39 yrs Sex: Male : 1980 Arrival Date: 05/07/2019 Time: 21:05 Bed 20 Private MD: Diagnosis: Epilepsy and recurrent seizures Presentation: 05/07 21:11 Presenting complaint: EMS states: they were toned out for report of pt with seizures. bb Transition of care: patient was not received from another setting of care. Onset of symptoms was May 07, 2019. Risk Assessment: Do you want to hurt yourself or someone else? Patient reports no desire to harm self or others. Initial Sepsis Screen: Does the patient meet any 2 criteria? No. Patient's initial sepsis screen is negative. Does the patient have a suspected source of infection? No. Patient's initial sepsis screen is negative. Care prior to arrival: None. 21:11 Method Of Arrival: EMS: [facility] bb 21:11 Acuity: ANDREAS 4 bb Triage Assessment: 21:10 General: Appears in no apparent distress. uncomfortable, Behavior is calm, cooperative, cc3 appropriate for age. Pain: Complains of pain in right shoulder Quality of pain is described as aching. EENT: No signs and/or symptoms were reported regarding the EENT system. Neuro: Level of Consciousness is awake, alert, obeys commands, Oriented to person, place, time, situation, Appropriate for age. Cardiovascular: Denies chest pain, Heart tones S1 S2 present Capillary refill < 3 seconds in bilateral fingers Patient's skin is warm and dry. Respiratory: Airway is patent Respiratory effort is even, unlabored, Respiratory pattern is regular, symmetrical, Breath sounds are clear bilaterally. GI: Abdomen is round non-distended, obese, Bowel sounds present X 4 quads. : No signs and/or symptoms were reported regarding the genitourinary system. Derm: Skin is intact, is healthy with good turgor, Skin is pink, warm \T\ dry. normal. Musculoskeletal: Circulation, motion, and sensation intact. Range of motion: intact in all extremities. Historical: - Allergies: 21:12 No Known Allergies; bb - Home Meds: 21:12 Keppra Oral [Active]; Dilantin Oral 300 mg twice a day [Active]; bb - PMHx: 21:12 Back pain; Chronic pain; Diabetes - IDDM; Nerve damage; Seizures; bb - PSHx: 21:12 Lithotripsy; right kidney surgery; bb - Immunization history:: Adult Immunizations up to date. - Social history:: Smoking status: Patient/guardian denies using tobacco, Patient/guardian denies using alcohol, street drugs. - Ebola Screening: : No symptoms or risks identified at this time. Screenin:10 Abuse screen: Denies threats or abuse. Denies injuries from another. Nutritional cc3 screening: No deficits noted. Tuberculosis screening: No symptoms or risk factors identified. Fall Risk Ambulatory Aid- None/Bed Rest/Nurse Assist (0 pts). Gait- Normal/Bed Rest/Wheelchair (0 pts) Mental Status- Oriented to own ability (0 pts). Assessment: 21:10 General: see triage assessment. cc3 21:30 Reassessment: NABILA Jain said patient had seizure episode, Ativan 1 mg IV was given as cc3 ordered. 22:05 Reassessment: Patient appears in no apparent distress at this time. Patient and/or cc3 family updated on plan of care and expected duration. Pain level reassessed. 23:15 Reassessment: Patient appears in no apparent distress at this time. Patient and/or cc3 family updated on plan of care and expected duration. Pain level reassessed. Patient is alert, oriented x 3, equal unlabored respirations, skin warm/dry/pink. Dr. Tatum discharged the patient, no prescription given. IV cannula removed and patient left ER vitally stable and ambulatory with the [place] special police officer. No valuables left in the patient's room. Patient denies pain at this time. Patient states feeling better. Patient states symptoms have improved. Vital Signs: 21:12 BP 119 / 84; Pulse 99; Resp 16 S; Temp 99(TE); Pulse Ox 99% on R/A; Weight 88.45 kg bb (R); Height 5 ft. 6 in. (167.64 cm) (R); Pain 10/10; 21:30 BP 129 / 86; Pulse 95; Resp 20 S; Pulse Ox 98% on R/A; cc3 22:00 BP 140 / 79; Pulse 102; Resp 20 S; Pulse Ox 97% on R/A; cc3 22:30 BP 128 / 89; Pulse 91; Resp 19 S; Pulse Ox 99% on R/A; cc3 23:00 BP 121 / 79; Pulse 97; Resp 20 S; Pulse Ox 99% on R/A; cc3 21:12 Body Mass Index 31.47 (88.45 kg, 167.64 cm) ED Course: 21:05 Patient arrived in ED. cf2 21:10 Fatoumata Cordova is Primary Nurse. cc3 21:10 Patient has correct armband on for positive identification. Placed in gown. Bed in low cc3 position. Side rails up X2. Seizure precautions initiated. rollway worker on. Pulse ox on. NIBP on. 21:11 Triage completed. bb 21:12 Arm band placed on Patient placed in an exam room, on a stretcher, on pulse oximetry. bb 21:30 Osmel Tatum MD is Attending Physician. gs 21:30 Inserted saline lock: 18 gauge in left hand, using aseptic technique. aa1 22:04 Shoulder Right (2 View) XRAY In Process Unspecified. EDMS 22:37 Willem Yoder MD is Referral Physician. gs 23:15 No provider procedures requiring assistance completed. IV discontinued, intact, cc3 bleeding controlled, No redness/swelling at site. Pressure dressing applied. Administered Medications: 21:30 Drug: Ativan 1 mg Route: IVP; Site: left hand; aa1 22:00 Follow up: Response: No adverse reaction; Marked relief of symptoms cc3 22:00 Drug: Keppra 1000 mg Route: PO; cc3 23:00 Follow up: Response: No adverse reaction cc3 Outcome: 22:37 Discharge ordered by . gs 23:15 Discharged to Law Enforcement cc3 23:15 Condition: stable 23:15 Discharge instructions given to patient, Instructed on discharge instructions, follow up and referral plans. Demonstrated understanding of instructions, follow-up care. 23:18 Patient left the ED. cc3 Signatures: Dispatcher [employer] EDMS Susy Cunha RN RN aa1 Simin Ruff RN RN bb Osmel Tatum MD MD gs Cordel, Charlene cc3 Fco Dougherty cf2
[2019-05-08 00:30] VITALS: TEMP 99; O2SAT 99
[2019-05-08 00:31] VITALS: BP 121/79
[2019-05-08] MEDS ORDERED: NA CHLORIDE 0.9% 1,000 ML ONE (01:04)
== END 2019-05-07 23:18 | disposition home or self-care (01) ==
LOC: ER 20:58
DX: G40.802 Other epilepsy, not intractable, without status epilepticus (principal); M25.511 Pain in right shoulder; E11.9 Type 2 diabetes mellitus without complications
CPT/HCPCS: 96374; 99284

== ENCOUNTER 2019-05-08 00:02 | Emergency (ER) | payer SELFPAY ==
[2019-05-08 01:23] LABS: Absolute Lymphocytes (CBC) 2.4 K/uL (0.7-4.9); Basophils % 0.6 % (0-1.3); Hematocrit 38.6 % (39.6-49.0); Lymphocytes % 20.6 % (15.3-44.8); MPV 7.6 fL (7.6-11.3); RBC Red Blood Cell Count 4.72 M/uL (4.33-5.43)
[2019-05-08 01:32] LABS: BUN Blood Urea Nitrogen 9 mg/dL (7-18); Bicarbonate 24 mmol/L (21-32); Glucose Level 109 mg/dL (74-106); Potassium 3.6 mmol/L (3.5-5.1); Sodium Level 143 mmol/L (136-145)
--- NOTE | 2019-05-08 02:03 | ER ---
Nurse's Notes [facility] Name: Yonatan Ramos Age: 39 yrs Sex: Male : 1980 Arrival Date: 05/08/2019 Time: 00:19 Bed 20 Private MD: Diagnosis: Epilepsy and recurrent seizures Presentation: 05/08 00:00 Presenting complaint: EMS states: "We were toned for patient unresponsiveness in the cc3 holding area of [facility] after having a seizure activity but when we tried to insert the nasal trumpet the patient suddenly woke up and said 'what the fuck'" [place] police communications dispatcher said the patient was not responding with both eyes open in a blank stare for like 2 minutes after seizing. No tongue-bite noted and the patient did not urinate on himself. Transition of care: [facility]. Onset of symptoms was May 08, 2019. Risk Assessment: Do you want to hurt yourself or someone else? Patient reports no desire to harm self or others. Initial Sepsis Screen: Does the patient meet any 2 criteria? HR > 90 bpm. Does the patient have a suspected source of infection? No. Patient's initial sepsis screen is negative. Care prior to arrival: None. 00:00 Method Of Arrival: EMS: [facility] cc3 00:00 Acuity: ANDREAS 3 cc3 Triage Assessment: 00:00 General: Appears in no apparent distress. uncomfortable, Behavior is calm, cooperative, cc3 appropriate for age. Pain: Complains of pain in nose. EENT: Nares with bleeding noted on right due to nasal trumpet that was attempted to be put by EMS. Neuro: Level of Consciousness is awake, alert, obeys commands, Oriented to person, place, time, situation, Appropriate for age. Cardiovascular: Denies chest pain, Heart tones S1 S2 present Capillary refill < 3 seconds in bilateral fingers Patient's skin is warm and dry. Respiratory: Airway is patent Respiratory effort is even, unlabored, Respiratory pattern is regular, symmetrical. GI: Abdomen is round non-distended, obese. : No signs and/or symptoms were reported regarding the genitourinary system. Derm: Skin is intact, is healthy with good turgor, Skin is pink, warm \\T\\ dry. normal, Skin temperature is warm. Musculoskeletal: Circulation, motion, and sensation intact. Range of motion: intact in all extremities. Historical: - Allergies: 00:00 No Known Allergies; cc3 - Home Meds: 00:00 Dilantin Oral 300 mg twice a day [Active]; Keppra Oral [Active]; cc3 - PMHx: 00:00 Back pain; Chronic pain; Diabetes - IDDM; Nerve damage; Seizures; Kidney stones; cc3 - PSHx: 00:00 Lithotripsy; kidney stents; cc3 - Immunization history:: Adult Immunizations not up to date. - Social history:: Smoking status: Patient/guardian denies using tobacco, the patient reports quitting approximately 7 years ago. - Ebola Screening: : No symptoms or risks identified at this time. Screenin:00 Abuse screen: Denies threats or abuse. Denies injuries from another. Nutritional cc3 screening: No deficits noted. Tuberculosis screening: No symptoms or risk factors identified. Fall Risk Ambulatory Aid- None/Bed Rest/Nurse Assist (0 pts). Gait- Normal/Bed Rest/Wheelchair (0 pts) Mental Status- Oriented to own ability (0 pts). Assessment: 00:00 General: see triage assessment. cc3 01:30 Reassessment: Patient appears in no apparent distress at this time. Patient and/or cc3 family updated on plan of care and expected duration. Pain level reassessed. Patient is alert, oriented x 3, equal unlabored respirations, skin warm/dry/pink. Patient for transfer to [facility], report called and handed over to NABILA Neri. Transfer form completed and signed by the patient himself. ED motor pool clerk to call ground EMS for patient transport. 01:47 Reassessment: Patient requested to call his girlfriend named Prabha at mobile number cc3 [phone] to inform her that he's here in the hospital and that he's for transfer but nobody answered the call so I just left a voicemail message. 02:11 Reassessment: Patient appears in no apparent distress at this time. Patient and/or cc3 family updated on plan of care and expected duration. Pain level reassessed. Patient is alert, oriented x 3, equal unlabored respirations, skin warm/dry/pink. Patient denies pain at this time. 02:20 Reassessment: Patient not in his room anymore and nowhere to be found, ED registration cc3 staff Rhonda said she saw the patient walked out of ER and thought that the patient was discharged. Patient eloped with his IV cannula on, charge nurse Simin and Dr. Tatum informed. Ed motor pool clerk Haris called [facility] to inform that patient eloped with his IV cannula on. Vital Signs: 00:00 BP 134 / 84; Pulse 110; Resp 20 S; Temp 98.7(O); Pulse Ox 97% on R/A; Weight 88.45 kg cc3 (R); Height 5 ft. 5 in. (166 cm) (R); 01:30 BP 119 / 83; Pulse 105; Resp 20 S; Pulse Ox 97% on R/A; Pain 0/10; cc3 02:11 BP 125 / 69; Pulse 67; Resp 18 S; Pulse Ox 98% on R/A; Pain 0/10; cc3 00:00 Body Mass Index 32.10 (88.45 kg, 166 cm) cc3 ED Course: 00:00 Patient has correct armband on for positive identification. Placed in gown. Bed in low cc3 position. Call light in reach. Side rails up X2. nutrition internship on. Pulse ox on. NIBP on. 00:00 Arm band placed on right wrist. Patient notified of wait time. cc3 00:00 Seizure precautions initiated. cc3 00:19 Patient arrived in ED. aa1 00:23 Osmel Tatum MD is Attending Physician. gs 00:38 Fatoumata Cordova is Primary Nurse. cc3 00:49 Triage completed. cc3 01:04 Initial lab(s) drawn, by nc, sent to lab. Inserted saline lock: 20 gauge in right hand, aa1 using aseptic technique. Blood collected. 02:20 No provider procedures requiring assistance completed. patient eloped with his IV cc3 cannula on. Administered Medications: 01:00 Drug: NS 0.9% 1000 ml Route: IV; Rate: 1 bolus; Site: right hand; cc3 02:42 Follow up: IV Status: patient eloped; IV Intake: 800ml cc3 Intake: 02:42 IV: 800ml; Total: 800ml. cc3 Outcome: 02:03 ER care complete, transfer ordered by . gs 02:20 Eloped from patient exam room, after seeing physician Time discovered patient gone: cc3 May 08, 2019 at 02:20 02:20 Condition: stable 03:45 Patient left the ED. cc3 Signatures: Susy Cunha RN RN aa1 Osmel Tatum MD MD gs Cordel, Charlene cc3 Corrections: (The following items were deleted from the chart) 00:54 00:00 Presenting complaint: EMS states: "We were toned for patient unresponsiveness in cc3 the holding area of [facility] after having a seizure activity but when we tried to insert the nasal trumpet the patient suddenly woke up and said 'what the fuck'" [place] police communications dispatcher said the patient was not responding with both eyes open in a blank stare for like 2 minutes after seizing. cc3
--- NOTE | 2019-05-08 02:03 | EDPHYS ---
Physician Documentation [facility] Name: Yonatan Ramos Age: 39 yrs Sex: Male : 1980 Arrival Date: 05/08/2019 Time: 00:19 Bed 20 Private MD: ED Physician Osmel Tatum HPI: 05/08 01:58 This 39 yrs old Male presents to ER via EMS with complaints of sz. gs 01:58 The patient presents after having a single isolated seizure. Character of seizure(s): gs Motor activity: generalized. Seizure onset: just prior to arrival. Seizure Hx: Last seizure: The patient's last seizure today. Associated injury: Head/face: abrasion. Current symptoms: Currently, the patient is not experiencing any symptoms, the patient feels back to baseline. The patient has experienced similar episodes in the past, a few times. The patient has been recently seen by a physician: . Historical: - Allergies: 00:00 No Known Allergies; cc3 - Home Meds: 00:00 Dilantin Oral 300 mg twice a day [Active]; Keppra Oral [Active]; cc3 - PMHx: 00:00 Back pain; Chronic pain; Diabetes - IDDM; Nerve damage; Seizures; Kidney stones; cc3 - PSHx: 00:00 Lithotripsy; kidney stents; cc3 - Immunization history:: Adult Immunizations not up to date. - Social history:: Smoking status: Patient/guardian denies using tobacco, the patient reports quitting approximately 7 years ago. - Ebola Screening: : No symptoms or risks identified at this time. ROS: 01:58 All other systems are negative. gs Exam: 01:58 Eyes: Pupils equal round and reactive to light, extra-ocular motions intact. Lids and gs lashes normal. Conjunctiva and sclera are non-icteric and not injected. Cornea within normal limits. Periorbital areas with no swelling, redness, or edema. ENT: Nares patent. No nasal discharge, no septal abnormalities noted. Tympanic membranes are normal and external auditory canals are clear. Oropharynx with no redness, swelling, or masses, exudates, or evidence of obstruction, uvula midline. Mucous membranes moist. Neck: Trachea midline, no thyromegaly or masses palpated, and no cervical lymphadenopathy. Supple, full range of motion without nuchal rigidity, or vertebral point tenderness. No Meningismus. Chest/axilla: Normal chest wall appearance and motion. Nontender with no deformity. No lesions are appreciated. Cardiovascular: Regular rate and rhythm with a normal S1 and S2. No gallops, murmurs, or rubs. Normal PMI, no JVD. No pulse deficits. Respiratory: Lungs have equal breath sounds bilaterally, clear to auscultation and percussion. No rales, rhonchi or wheezes noted. No increased work of breathing, no retractions or nasal flaring. Abdomen/GI: Soft, non-tender, with normal bowel sounds. No distension or tympany. No guarding or rebound. No evidence of tenderness throughout. Back: No spinal tenderness. No costovertebral tenderness. Full range of motion. Skin: Warm, dry with normal turgor. Normal color with no rashes, no lesions, and no evidence of cellulitis. MS/ Extremity: Pulses equal, no cyanosis. Neurovascular intact. Full, normal range of motion. Neuro: Awake and alert, GCS 15, oriented to person, place, time, and situation. Cranial nerves II-XII grossly intact. Motor strength 5/5 in all extremities. Sensory grossly intact. Cerebellar exam normal. Normal gait. 01:58 Constitutional: The patient appears alert, awake. 01:58 Head/face: Noted is abrasion(s), that are mild, of the forehead and nose. Vital Signs: 00:00 BP 134 / 84; Pulse 110; Resp 20 S; Temp 98.7(O); Pulse Ox 97% on R/A; Weight 88.45 kg cc3 (R); Height 5 ft. 5 in. (166 cm) (R); 01:30 BP 119 / 83; Pulse 105; Resp 20 S; Pulse Ox 97% on R/A; Pain 0/10; cc3 02:11 BP 125 / 69; Pulse 67; Resp 18 S; Pulse Ox 98% on R/A; Pain 0/10; cc3 00:00 Body Mass Index 32.10 (88.45 kg, 166 cm) cc3 MDM: 00:23 Patient medically screened. gs 01:58 Differential diagnosis: seizure. Data reviewed: vital signs, nurses notes. Response to gs treatment: the patient's symptoms have resolved after treatment. 05/08 00:24 Order name: CBC with Diff; Complete Time: 02:03 05/08 00:24 Order name: Basic Metabolic Panel; Complete Time: 02:50 05/08 00:24 Order name: Urine Drug Screen; Complete Time: 02:50 05/08 02:01 Order name: Urine Dipstick--Ancillary (enter results); Complete Time: 02:50 mw2 05/08 02:14 Order name: Creatine Phosphokinase; Complete Time: 02:50 EDMS Administered Medications: 01:00 Drug: NS 0.9% 1000 ml Route: IV; Rate: 1 bolus; Site: right hand; cc3 02:42 Follow up: IV Status: patient eloped; IV Intake: 800ml cc3 Disposition: 05/08/19 03:40 Patient left the facility after being seen by provider. Preliminary diagnosis is Epilepsy and recurrent seizures. - Patient left due to unknown. - Condition is Stable. Signatures: [facility] Osmel Tatum MD MD Fatoumata Cordova cc3 Corrections: (The following items were deleted from the chart) 02:12 02:03 CREATINE PHOSPHOKINASE+[id number].LAB.BRZ ordered. [facility] EDMS 03:39 02:03 05/08/2019 02:03 Transfer ordered to [facility]. Diagnosis is Epilepsy and recurrent seizures. Reason for transfer: Higher level of care. Accepting physician is rupali. Condition is Stable. Problem is an acute exacerbation. Symptoms are resolved. 03:45 03:40 05/08/2019 03:40 Patient left the facility after being seen by provider. cc3 Preliminary diagnosis is Epilepsy and recurrent seizures. Reason stated they are leaving due to unknown. Condition is Stable.
[2019-05-08 02:13] LABS: Barbiturates NEGATIVE (NEGATIVE); Benzodiazepines NEGATIVE (NEGATIVE); Cocaine POSITIVE (NEGATIVE); METHAMPHETAM NEGATIVE (NEGATIVE); Methadone NEGATIVE (NEGATIVE); Opiates NEGATIVE (NEGATIVE); Phencyclidine NEGATIVE (NEGATIVE); THC Cannibis POSITIVE (NEGATIVE)
[2019-05-08 02:25] LABS: Creatine Phosphokinase 88 U/L (39-308)
[2019-05-08 02:41] LABS: Urine Blood NEGATIVE (NEG); Urine Glucose NEGATIVE (NEG); Urine Protein NEGATIVE (NEG); Urine Specific Gravity 1.025 (1.005-1.030); Urine pH 6.5 (5.0-7.0)
[2019-05-08 04:05] VITALS: BP 125/69; O2SAT 98
== END 2019-05-08 03:45 | disposition left against medical advice (07) ==
LOC: ER 00:02
DX: G40.909 Epilepsy, unspecified, not intractable, without status epilepticus (principal)
CPT/HCPCS: 36415; 80048; 80307; 81003; 82550; 85025; 96360; 96361; 99284

== ENCOUNTER 2019-06-18 07:31 | Emergency (ER) | payer SELFPAY ==
--- OUTSIDE RECORDS SUMMARY | 2019-06-18 07:33 | XMS REPORT ---
:1980 [facility] Address [address] [place] [address] [address] [place] [address] Care Team Providers Name Role Phone MISSY JONES Unavailable Unavailable Problems This patient has no known problems. Allergies, Adverse Reactions, Alerts This patient has no known allergies or adverse reactions. Medications This patient has no known medications. Encounters Start End Encounter Admission Attending Care Care Encounter Date/Time Date/Time Type Type Clinicians Facility Department ID 2018-09-04 2018-09-04 Emergency [facility] MED [id number] 19:56:41 19:56:41 Results Test Description Test Time Test Comments Text Results Atomic Results Result Comments BASIC METABOLIC PANEL 2018-02-24 03:44:00 Test Item Value Reference Range Comments SODIUM (BEAKER) (test 142 meq/L 136-145 adiu=608) POTASSIUM (BEAKER) (test 3.8 meq/L 3.5-5.1 xaqh=705) CHLORIDE (BEAKER) (test 112 meq/L 98-107 dcde=034) CO2 (BEAKER) (test 24 meq/L 22-29 ptsm=163) BLOOD UREA NITROGEN 9 mg/dL 7-21 (BEAKER) (test yfsb=234) CREATININE (BEAKER) (test 0.80 mg/dL 0.57-1.25 ucbq=034) GLUCOSE RANDOM (BEAKER) 94 mg/dL 70-105 (test atex=881) CALCIUM (BEAKER) (test 9.1 mg/dL 8.4-10.2 zvak=820) EGFR (BEAKER) (test 108 mL/min/1.73 sq m ESTIMATED GFR IS NOT wvnw=2033) ACCURATE CREATININE CLEARANCE IN PREDICTING GLOMERULAR FILTRATION RATE. ESTIMATED GFR IS NOT APPLICABLE FOR DIALYSIS PATIENTS. CBC W/PLT COUNT & AUTO [id number] 03:21:00 Test Item Value Reference Range Comments WHITE BLOOD CELL COUNT (BEAKER) (test okwd=647) 11.9 K/ L 3.5-10.5 RED BLOOD CELL COUNT (BEAKER) (test sdjb=275) 4.55 M/ L 4.63-6.08 HEMOGLOBIN (BEAKER) (test qrst=059) 13.0 GM/DL 13.7-17.5 HEMATOCRIT (BEAKER) (test svow=914) 38.6 % 40.1-51.0 MEAN CORPUSCULAR VOLUME (BEAKER) (test jwjk=563) 84.8 fL 79.0-92.2 MEAN CORPUSCULAR HEMOGLOBIN (BEAKER) (test 28.6 pg 25.7-32.2 zcul=989) MEAN CORPUSCULAR HEMOGLOBIN CONC (BEAKER) (test 33.7 GM/DL 32.3-36.5 ripi=458) RED CELL DISTRIBUTION WIDTH (BEAKER) (test 12.6 % 11.6-14.4 mzdy=128) PLATELET COUNT (BEAKER) (test fvdp=285) 273 K/CU MM 150-450 MEAN PLATELET VOLUME (BEAKER) (test hiaq=345) 8.8 fL 9.4-12.4 NUCLEATED RED BLOOD CELLS (BEAKER) (test 0 /100 WBC 0-0 qnvz=745) NEUTROPHILS RELATIVE PERCENT (BEAKER) (test 58 % qxzu=212) LYMPHOCYTES RELATIVE PERCENT (BEAKER) (test 31 % wphb=904) MONOCYTES RELATIVE PERCENT (BEAKER) (test 8 % lous=609) EOSINOPHILS RELATIVE PERCENT (BEAKER) (test 1 % rukh=454) BASOPHILS RELATIVE PERCENT (BEAKER) (test 1 % avmd=136) NEUTROPHILS ABSOLUTE COUNT (BEAKER) (test 6.96 K/ L 1.78-5.38 tukh=040) LYMPHOCYTES ABSOLUTE COUNT (BEAKER) (test 3.73 K/ L 1.32-3.57 emfo=628) MONOCYTES ABSOLUTE COUNT (BEAKER) (test 0.99 K/ L 0.30-0.82 rrus=336) EOSINOPHILS ABSOLUTE COUNT (BEAKER) (test 0.15 K/ L 0.04-0.54 ooxv=313) BASOPHILS ABSOLUTE COUNT (BEAKER) (test 0.06 K/ L 0.01-0.08 uclb=216) IMMATURE GRANULOCYTES-RELATIVE PERCENT (BEAKER) 0 % 0-1 (test pjyn=9065)
[2019-06-18] MEDS ORDERED: KETOROLAC 30 MG/ML INJ ONE (07:47)
[2019-06-18 08:21] LABS: Absolute Lymphocytes (CBC) 2.8 K/uL (0.7-4.9); Basophils % 1.1 % (0-1.3); Hematocrit 40.1 % (39.6-49.0); Lymphocytes % 33.4 % (15.3-44.8); MPV 7.6 fL (7.6-11.3); RBC Red Blood Cell Count 4.83 M/uL (4.33-5.43)
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
[2019-06-18] MEDS ORDERED: levETIRAcetam 500 MG TAB ONE (08:43)
[2019-06-18 08:52] LABS: BUN Blood Urea Nitrogen 11 mg/dL (7-18); Bicarbonate 23 mmol/L (21-32); Glucose Level 113 mg/dL (74-106); Potassium 3.5 mmol/L (3.5-5.1); Sodium Level 141 mmol/L (136-145)
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
--- NOTE | 2019-06-18 08:56 | ER ---
Nurse's Notes [facility] Name: Yonatan Ramos Age: 39 yrs Sex: Male : 1980 Arrival Date: 06/18/2019 Time: 07:33 Bed 17 Private MD: Diagnosis: Epilepsy and recurrent seizures;Cervicalgia;Scapular pain Presentation: 06/18 07:36 Transition of care: patient was not received from another setting of care. Onset of hb symptoms was June 18, 2019. Risk Assessment: Do you want to hurt yourself or someone else? Patient reports no desire to harm self or others. Initial Sepsis Screen: Does the patient meet any 2 criteria? No. Patient's initial sepsis screen is negative. Does the patient have a suspected source of infection? No. Patient's initial sepsis screen is negative. Care prior to arrival: IV initiated. 18 GA, 22 GA, antecubital area, Glucose check: 109. 07:36 Acuity: ANDREAS 3 hb 07:36 Method Of Arrival: EMS: [facility] 07:36 Presenting complaint: EMS states: Pt was laying on ground and appeared to be seizing, jl7 hitting his head on the concrete, pt had another seizure on the way and 5 mg Versed IVP given. Triage Assessment: 07:36 General: Appears in no apparent distress. uncomfortable, Behavior is cooperative, jl7 anxious, crying. Pain: Complains of pain in neck and back of head. Neuro: Level of Consciousness is awake, alert, obeys commands, Oriented to person, place, time, situation. Cardiovascular: Patient's skin is warm and dry. Respiratory: Airway is patent Respiratory effort is even, unlabored, Respiratory pattern is symmetrical, tachypnea. Derm: Skin is pink, warm \T\ dry. Historical: - Allergies: 07:39 No Known Allergies; hb - Home Meds: 07:39 Keppra 500 mg oral tab 2 times per day [Active]; hb - PMHx: 07:39 Back pain; Chronic pain; Diabetes - IDDM; Kidney stones; Nerve damage; Seizures; hb - PSHx: 07:39 Lithotripsy; Kidney stents; hb - Immunization history:: Adult Immunizations up to date. - Ebola Screening: : No symptoms or risks identified at this time. - Social history:: Smoking status: unknown. Screenin:07 Abuse screen: Denies threats or abuse. Denies injuries from another. Nutritional jl7 screening: No deficits noted. Tuberculosis screening: No symptoms or risk factors identified. Fall Risk IV access (20 points). Total [place] Fall Scale indicates No Risk (0-24 pts). Assessment: 07:36 General: See triage assessment. jl7 07:45 Reassessment: Pt appears to be hyperventilating, instructed pt to slow breathing down, jl7 pt not following directions, uninflated non-rebreather placed on pt at this time. 08:39 Reassessment: Recollect requested for type and screen, ERD notified and gave VO to jl7 cancel order, Nova in lab notified. Vital Signs: 07:33 BP 156 / 93; Pulse 107; Resp 16; Temp 97.9; Pulse Ox 99% on R/A; Pain 6/10; hb 08:39 BP 114 / 69; Pulse 85; Resp 19 S; Pulse Ox 100% on R/A; jl7 [place] Coma Score: 07:36 Eye Response: spontaneous(4). Verbal Response: oriented(5). Motor Response: obeys jl7 commands(6). Total: 15. ED Course: 07:33 Patient arrived in ED. hb 07:36 Arm band placed on. hb 07:37 Diogenes Mercedes MD is Attending Physician. ps1 07:37 Triage completed. hb 07:38 Austin Edgar, NABILA is Primary Nurse. jl7 07:40 Patient has correct armband on for positive identification. Bed in low position. Call hb light in reach. Side rails up X2. Seizure precautions initiated. 07:55 Missed attempt(s): 22 gauge in right forearm. Bleeding controlled, band aid applied, jl7 catheter tip intact. 08:00 Initial lab(s) drawn, by la, sent to lab. Inserted saline lock: 22 gauge in left hand, jl7 using aseptic technique. Blood collected. 08:05 CT Head C Spine In Process Unspecified. EDMS 08:07 Pulse ox on. NIBP on. jl7 08:26 XRAY Chest (1 view) In Process Unspecified. EDMS 08:54 Kaushik Castano MD is Referral Physician. ps1 08:54 Willem Yoder MD is Referral Physician. ps1 09:01 No provider procedures requiring assistance completed. jl7 09:23 IV discontinued, intact, bleeding controlled, No redness/swelling at site. Pressure jl7 dressing applied. Administered Medications: 08:00 Drug: TORadol - Ketorolac 15 mg Route: IVP; Site: left hand; jl7 08:30 Follow up: Response: No adverse reaction jl7 08:45 Drug: Keppra 1000 mg Route: PO; jl7 09:00 Follow up: Response: No adverse reaction jl7 Outcome: 08:56 Discharge ordered by . ps1 09:23 Discharged to home ambulatory. jl7 09:23 Condition: stable 09:23 Discharge instructions given to patient, Instructed on discharge instructions, follow up and referral plans. medication usage, Demonstrated understanding of instructions, follow-up care, medications, Prescriptions given X 1. 09:29 Patient left the ED. jl7 Signatures: Dispatcher [employer] EDMS Irma Tong RN RN hb Leal, Jahala, RN RN jl7 Diogenes Mercedes MD MD ps1
[2019-06-18 09:43] VITALS: TEMP 97.9
[2019-06-18 09:44] VITALS: BP 114/69; O2SAT 100
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
== END 2019-06-18 09:29 | disposition home or self-care (01) ==
LOC: ER 07:31
DX: M54.2 Cervicalgia (principal); M54.89 Other dorsalgia; E11.9 Type 2 diabetes mellitus without complications
CPT/HCPCS: 36415; 70450; 71045; 72125; 80048; 83605; 85025; 96374; 99284

== ENCOUNTER 2024-03-26 17:41 | Emergency (ER) | payer SELFPAY ==
[2024-03-26] MEDS ORDERED: ONDANSETRON 4 MG/2 ML VIAL ONE (18:35)
[2024-03-26] MEDS ORDERED: FAMOTIDINE 20 MG/2 ML VIAL IV ONE (18:36)
[2024-03-26] MEDS ORDERED: MORPHINE 4 MG/ML SYR ONE (18:36)
[2024-03-26] MEDS ORDERED: NA CHLORIDE 0.9% 1,000 ML ONE (18:36)
[2024-03-26 18:40] LABS: Absolute Basophils 0.1 K/uL (0-0.5); Absolute Eosinophils 0.1 K/uL (0-0.5); Absolute Monocytes 0.9 K/uL (0.1-1.3); Absolute Neutrophil 5.2 K/uL (1.8-8.0); Basophils % 0.7 % (0-1.3); Eosinophils % 1.1 % (0-4.4); Hematocrit 39.4 % (39.6-49.0); Hemoglobin 13.6 g/dL (13.6-17.9); MCH 29.3 pg (27.0-35.0); MCHC 34.5 g/dL (32.0-36.0); MCV 84.8 fL (80-100); Monocytes % 12.7 % (3.3-12.3); Neutrophils % 71.5 % (41.7-73.7); Nucleated Red Blood Cells % 0.1 % (0-0); Platelets 232 thou/uL (152-406); RBC Red Blood Cell Count 4.64 M/uL (4.33-5.43); Red Cell Distribution Width 13.2 % (12.1-15.2)
[2024-03-26 19:00] LABS: ALT/SGPT 25 U/L (16-61); Albumin 3.8 g/dL (3.4-5.0); Albumin/Globulin Ratio 1.1 (1.1-1.8); Alkaline Phosphatase 87 U/L (45-117); Anion Gap 8.6 mEq/L (5.0-15.0); BUN Blood Urea Nitrogen 7 mg/dL (7-18); Bicarbonate 25 mEq/L (21-32); Bilirubin Total 0.5 mg/dL (0.2-1.0); Globulin 3.6 g/dL (2.3-3.5); Glomerular Filtration Rate 104 ml/min (=/>90); Glucose Level 101 mg/dL (74-106); Lipase 86 U/L (13-75); Potassium 3.6 mEq/L (3.5-5.1); Protein, Total 7.4 g/dL (6.4-8.2); Sodium Level 139 mEq/L (136-145)
[2024-03-26 19:10] LABS: AST/SGOT < 10 U/L (15-37)
--- NOTE | 2024-03-26 19:48 | RAD REPORT ---
EXAM DESCRIPTION: CT - Abdomen Pelvis W Contrast - 03/26/2024 7:25 pm CLINICAL HISTORY: Abdominal pain COMPARISON: 2019 TECHNIQUE: Computed axial tomography of the abdomen pelvis was obtained. 100 cc Isovue-300 was admin istered intravenously. Oral contrast was not requested which limits evaluation of bowel and appendix All CT scans are performed using dose optimization technique as appropriate and may include automated exposure control or mA/KV adjustment according to patient size. FINDINGS: The liver, spleen, pancreas, and adrenals appear unremarkable 3 millimeter calculus right kidney. No hydronephrosis. 1 millimeter calculus left kidney. No hydronephrosis. Normal appendix. Small umbilical hernia contains fat. Small bilateral inguinal hernias contain fat There is no evidence of diverticulitis. IMPRESSION: No acute abnormality is displayed.
--- NOTE | 2024-03-26 20:27 | EDPHYS ---
Physician Documentation [facility] Name: Yonatan Ramos Age: 44 yrs Sex: Male : 1980 Arrival Date: 03/26/2024 Time: 17:41 Bed DX3 Private MD: ED Physician Orlin Dong HPI: 03/26 18:12 This 44 yrs old Male presents to ER via Ambulatory with complaints of Abdominal Pain, kb Bloody Stools. 18:12 Pt is a 44 year old male who presents for abd pain and blood in stool that started 2 kb weeks ago and has gotten worse. States he has had multiple BMs today, but it has been only bright red blood. Denies nausea, vomiting, fever. Historical: - Allergies: 17:59 No Known Allergies; iw - PMHx: 17:59 Back pain; Chronic pain; Kidney stones; Nerve damage; Seizures; iw - PSHx: 17:59 Lithotripsy; iw - Immunization history:: Adult Immunizations not up to date. - Infectious Disease History:: Denies. - Social history:: Smoking status: Patient denies any tobacco usage or history of. Smoking status: Patient/guardian denies using tobacco, the patient reports quitting approximately 10 years ago. ROS: 18:21 Constitutional: As per HPI kb Exam: 18:21 Constitutional: This is a well developed, well nourished patient who is awake, alert, kb and in no acute distress. Head/Face: Normocephalic, atraumatic. ENT: Moist Mucous membranes Cardiovascular: Regular rate Respiratory: Respirations even and unlabored. No increased work of breathing. Talking in full sentences Skin: Warm, dry with normal turgor. Normal color. MS/ Extremity: Pulses equal, no cyanosis. Neurovascular intact. Full, normal range of motion. Neuro: Awake and alert, GCS 15, oriented to person, place, time, and situation. Moves all extremities. Normal gait. 18:21 Abdomen/GI: Inspection: abdomen appears normal, Bowel sounds: normal, Palpation: soft, in all quadrants, moderate abdominal tenderness, in all quadrants, Vital Signs: 17:58 BP 127 / 83; Pulse 93; Resp 18; Temp 97.3; Pulse Ox 98% ; Weight 95.25 kg; Height 5 ft. iw 6 in. ; Pain 10/10; 20:42 BP 120 / 76; Pulse 72; Resp 16; Pulse Ox 97% on R/A; ss 17:58 Body Mass Index 33.89 (95.25 kg, 167.64 cm) iw 17:58 Pain Scale: Adult iw MDM: 17:43 Patient medically screened. kb 18:21 Data reviewed: vital signs, nurses notes. kb 20:24 Differential diagnosis: gastritis, gastroesophageal reflux disease, GI Bleed, kb non-specific abd pain. Consideration of Admission/Observation Escalation of care including admission/observation considered. admission considered but symptoms have been ongoing for 2 weeks, CT without acute findings, serum labs unremarkable. Pt educated on follow up with GI for further evaluation and return precautions. Verbal understanding received. . 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 03/26 18:02 Order name: CBC with Diff; Complete Time: 18:41 kb 03/26 18:02 Order name: CMP; Complete Time: 19:14 kb 03/26 18:02 Order name: Lipase; Complete Time: 19:14 kb 03/26 18:02 Order name: CT Abd/Pelvis - IV Contrast Only; Complete Time: 19:48 kb 03/26 18:02 Order name: IV Saline Lock; Complete Time: 18:32 kb 03/26 18:02 Order name: Labs collected and sent; Complete Time: 18:32 kb Administered Medications: 18:43 Drug: morphine IVP or IV 4 mg IVP once over 4 mins Route: IVP; Infused Over: 4 mins; dd2 Site: right antecubital; 20:45 Follow up: Response: No adverse reaction cm10 18:44 Drug: NS 0.9% IV 1000 ml IV at 1 bolus Per protocol; 1000 mL bolus Route: IV; Rate: 1 dd2 bolus; Site: right antecubital; 20:45 Follow up: Response: No adverse reaction; IV Status: Completed infusion; IV Intake: cm10 1000ml 18:44 Drug: Famotidine IVP 20 mg IVP once; dilute with 10 mL 0.9% NaCl; give over 2 minutes dd2 Route: IVP; Site: right antecubital; 20:45 Follow up: Response: No adverse reaction cm10 18:44 Drug: Ondansetron IVP 4 mg IVP once; over 2 minutes Route: IVP; Site: right antecubital;dd2 20:45 Follow up: Response: No adverse reaction cm10 Disposition Summary: 03/26/24 20:26 Discharge Ordered Notes: Location: Home kb Condition: Stable kb Diagnosis - GI Bleed/ Gastrointestinal hemorrhage, unspecified kb - Abdominal pain, Generalized kb Followup: kb - With: Emergency Department - When: As needed - Reason: Worsening of condition Followup: kb - With: Private Physician - When: 2 - 3 days - Reason: Recheck today's complaints, Continuance of care, Re-evaluation by your physician Discharge Instructions: - Discharge Summary Sheet kb - Abdominal Pain, Adult, [id number]-[id number] kb - Gastrointestinal Bleeding, [id number] kb Forms: - Medication Reconciliation Form kb - Antibiotic Education kb - Prescription Opioid Use kb - Patient Portal Instructions kb - Leadership Thank You Letter kb Prescriptions: - Protonix 40 mg Oral Tablet - take 1 tablet ORAL route once daily; 30 tablet; Refills: 0, Product Selection kb Permitted - dicyclomine 20 mg Oral tablet - take 1 tablet ORAL route 4 times per day As needed; 20 tablet; Refills: 0, kb Product Selection Permitted Addendum: 03/30/2024 07:46 I was immediately available for consultation during this patient's visit. I did not e c2 personally see the patient or discuss the patient with the CHRIS. . Signatures: Dispatcher [employer] Shari Aponte, DEREK-Nichelle LOPEZP-Yoko Ziegler, NABILA DAHL Orlin Dong MD MD ec2 IRVIN MACHADO RN RN dd2 Harriett Briceno RN cm10 Corrections: (The following items were deleted from the chart) 03/26 18:00 17:59 PMHx: [facility] - [facility]
--- NOTE | 2024-03-26 20:27 | ER ---
Nurse's Notes [facility] Name: Yonatan Ramos Age: 44 yrs Sex: Male : 1980 Arrival Date: 03/26/2024 Time: 17:41 Bed DX3 Private MD: Diagnosis: GI Bleed/ Gastrointestinal hemorrhage, unspecified;Abdominal pain, Generalized Presentation: 03/26 17:58 Chief complaint: Patient states: 2 weeks ago started having bright red blood when he iw went to bathroom, this morning his stomach was cramping and he had large amount of bright red blood with loose stool. Coronavirus screen: At this time, the client does not indicate any symptoms associated with coronavirus-19. Ebola Screen: No symptoms or risks identified at this time. Initial Sepsis Screen: Does the patient meet any 2 criteria? No. Patient's initial sepsis screen is negative. Does the patient have a suspected source of infection? No. Patient's initial sepsis screen is negative. Risk Assessment: Do you want to hurt yourself or someone else? Patient reports no desire to harm self or others. Onset of symptoms was March 12, 2024. 17:58 Method Of Arrival: Ambulatory iw 17:58 Acuity: ANDREAS 3 iw Triage Assessment: 20:44 General: Appears in no apparent distress. comfortable, Behavior is calm, cooperative. cm10 Historical: - Allergies: 17:59 No Known Allergies; iw - PMHx: 17:59 Back pain; Chronic pain; Kidney stones; Nerve damage; Seizures; iw - PSHx: 17:59 Lithotripsy; iw - Immunization history:: Adult Immunizations not up to date. - Infectious Disease History:: Denies. - Social history:: Smoking status: Patient denies any tobacco usage or history of. Smoking status: Patient/guardian denies using tobacco, the patient reports quitting approximately 10 years ago. Screenin:43 [facility] ED Fall Risk Assessment (Adult) History of falling in the last 3 months, cm10 including since admission No falls in past 3 months (0 pts) Confusion or Disorientation No (0 pts) Intoxicated or Sedated No (0 pts) Impaired Gait No (0 pts) Mobility Assist Device Used No (0 pt) Altered Elimination No (0 pt) Score/Fall Risk Level 0 - 2 = Low Risk Oriented to surroundings, Maintained a safe environment, Hourly rounding (assess needs \T\ fall precautionary measures) done. Abuse screen: Denies threats or abuse. Denies injuries from another. Nutritional screening: No deficits noted. Tuberculosis screening: No symptoms or risk factors identified. Assessment: 20:43 Reassessment: Pt awaiting ride at this time. cm10 20:43 General: Appears in no apparent distress. comfortable. Pain: Complains of pain in cm10 abdomen. Neuro: No deficits noted. Level of Consciousness is awake, alert, obeys commands, Oriented to person, place, time, situation, Appropriate for age. Respiratory: No deficits noted. Airway is patent Respiratory effort is even, unlabored, Respiratory pattern is regular, symmetrical. GI: Reports lower abdominal pain, upper abdominal pain. Vital Signs: 17:58 BP 127 / 83; Pulse 93; Resp 18; Temp 97.3; Pulse Ox 98% ; Weight 95.25 kg; Height 5 ft. iw 6 in. ; Pain 10/10; 20:42 BP 120 / 76; Pulse 72; Resp 16; Pulse Ox 97% on R/A; ss 17:58 Body Mass Index 33.89 (95.25 kg, 167.64 cm) iw 17:58 Pain Scale: Adult iw ED Course: 17:43 Patient arrived in ED. mr 17:43 Shari Baker FNP-C [facility]. kb 17:43 Orlin Dong MD is Attending Physician. kb 17:59 Triage completed. iw 18:00 Arm band placed on. iw 18:17 IRVIN MACHADO, RN is Primary Nurse. dd2 18:32 CBC with Diff Sent. dd2 18:32 CMP Sent. dd2 18:32 Lipase Sent. dd2 18:32 Initial lab(s) drawn, by ct, sent to lab. Inserted saline lock: 20 gauge in right dd2 antecubital area, using aseptic technique. Blood collected. Flushed with 10 mL NS. 19:27 CT Abd/Pelvis - IV Contrast Only In Process Unspecified. EDMS 20:44 Patient has correct armband on for positive identification. Provided Education on: cm10 Follow-up instructions.. 20:44 No provider procedures requiring assistance completed. intact, bleeding controlled, No cm10 redness/swelling at site. Pressure dressing applied. Administered Medications: 18:43 Drug: morphine IVP or IV 4 mg IVP once over 4 mins Route: IVP; Infused Over: 4 mins; dd2 Site: right antecubital; 20:45 Follow up: Response: No adverse reaction cm10 18:44 Drug: NS 0.9% IV 1000 ml IV at 1 bolus Per protocol; 1000 mL bolus Route: IV; Rate: 1 dd2 bolus; Site: right antecubital; 20:45 Follow up: Response: No adverse reaction; IV Status: Completed infusion; IV Intake: cm10 1000ml 18:44 Drug: Famotidine IVP 20 mg IVP once; dilute with 10 mL 0.9% NaCl; give over 2 minutes dd2 Route: IVP; Site: right antecubital; 20:45 Follow up: Response: No adverse reaction cm10 18:44 Drug: Ondansetron IVP 4 mg IVP once; over 2 minutes Route: IVP; Site: right antecubital;dd2 20:45 Follow up: Response: No adverse reaction cm10 Medication: 20:44 VIS not applicable for this client. cm10 Intake: 20:45 IV: 1000ml; Total: 1000ml. cm10 Outcome: 20:26 Discharge ordered by . kb 20:44 Discharged to home ambulatory, cm10 20:44 Condition: good 20:44 Discharge instructions given to patient, Instructed on discharge instructions, follow up and referral plans. medication usage, Demonstrated understanding of instructions, follow-up care, medications, Prescriptions given X 2, 21:04 Patient left the ED. ss Signatures: Dispatcher [employer] EDMS Shari Baker, TRACK INSPECTING SUPERVISOR-C TRACK INSPECTING SUPERVISOR-Ckb Kamini Murillo, Reg Reg mr Yoko Rodriguez RN RN Leidy Antonio RN RN Harriett Briceno RN RN 10 IRVIN MACHADO RN RN dd2 Corrections: (The following items were deleted from the chart) 18:00 17:59 PMHx: Diabetes - IDDM; iw
[2024-03-26 21:20] VITALS: TEMP 97.3
[2024-03-26 21:25] VITALS: BP 120/76; O2SAT 97
== END 2024-03-26 21:04 | disposition home or self-care (01) ==
LOC: ER 17:41
DX: K92.2 Gastrointestinal hemorrhage, unspecified (principal); R10.84 Generalized abdominal pain; Z87.442 Personal history of urinary calculi
CPT/HCPCS: 36415; 74177; 80053; 83690; 85025; 96361; 96374; 96375; 99284; J2405; J7030; Q9967

== ENCOUNTER 2025-03-07 15:12 | Emergency (ER) | payer SELFPAY ==
[2025-03-07] MEDS ORDERED: LEVETIRACETAM 500 MG/5 ML VIAL IV ONE (15:44)
[2025-03-07] MEDS ORDERED: FOSPHENYTOIN PE 500 MG/10 ML VIAL ONE (15:45)
[2025-03-07] MEDS ORDERED: NA CHLORIDE 0.9% 200 ML ONE (15:45)
--- NOTE | 2025-03-07 16:10 | EDPHYS ---
Physician Documentation [facility] Name: Yonatan Ramos Age: 44 yrs Sex: Male : 1980 Arrival Date: 03/07/2025 Time: 15:12 Bed 4 Private MD: ED Physician Alex Bee HPI: 03/07 15:39 This 44 yrs old Male presents to ER via EMS with complaints of Seizure. sp3 15:39 44-year-old male with history of epilepsy, kidney stones, back pain, presents to the ED sp3 with chief complaint breakthrough seizure. Patient states he missed doses of his Keppra and Dilantin because his parents were out of town and took "family medicine" with them. They all have epilepsy and they share medications due to cost. Patient states she has prescriptions but cannot afford it. He denies any different aspects to the seizure. Seizure was witnessed by his family and patient did not have material trauma or other abnormality. Currently patient feels back to his baseline normal self. He denies any headache, neck pain, chest pain, shortness of breath, abdominal pain, vomiting, diarrhea, syncope, neurological deficits, or any other signs or symptoms on ROS at this time.. Historical: - Allergies: 15:23 No Known Allergies; ar8 - Home Meds: 15:23 Keppra 500 mg Oral tab 2 times per day [Active]; ar8 - PMHx: 15:23 Back pain; Chronic pain; Kidney stones; Nerve damage; Seizures; ar8 - PSHx: 15:23 Lithotripsy; ar8 - Immunization history:: Adult Immunizations unknown. - Infectious Disease History:: Denies. - Social history:: Smoking status: Patient/guardian denies using tobacco, the patient reports quitting approximately 16 years ago. ROS: 15:40 Constitutional: Negative for fever, chills, and weight loss, Eyes: Negative for injury, sp3 pain, redness, and discharge, ENT: Negative for injury, pain, and discharge, Neck: Negative for injury, pain, and swelling, Cardiovascular: Negative for chest pain, palpitations, and edema, Respiratory: Negative for shortness of breath, cough, wheezing, and pleuritic chest pain, Abdomen/GI: Negative for abdominal pain, nausea, vomiting, diarrhea, and constipation, Back: Negative for injury and pain, MS/Extremity: Negative for injury and deformity, Skin: Negative for injury, rash, and discoloration, Psych: Negative for depression, anxiety, suicide ideation, homicidal ideation, and hallucinations, Allergy/Immunology: Negative for hives, rash, and allergies, Endocrine: Negative for neck swelling, polydipsia, polyuria, polyphagia, and marked weight changes, Hematologic/Lymphatic: Negative for swollen nodes, abnormal bleeding, and unusual bruising, 15:40 All other systems are negative, Exam: 15:40 Constitutional: This is a well developed, well nourished patient who is awake, alert, sp3 and in no acute distress. Head/Face: Normocephalic, atraumatic. Eyes: Pupils equal round and reactive to light, extra-ocular motions intact. Lids and lashes normal. Conjunctiva and sclera are non-icteric and not injected. Cornea within normal limits. Periorbital areas with no swelling, redness, or edema. Neck: Trachea midline, no thyromegaly or masses palpated, and no cervical lymphadenopathy. Supple, full range of motion without nuchal rigidity, or vertebral point tenderness. No Meningismus. Chest/axilla: Normal chest wall appearance and motion. Nontender with no deformity. No lesions are appreciated. Cardiovascular: Regular rate and rhythm with a normal S1 and S2. No gallops, murmurs, or rubs. Normal PMI, no JVD. No pulse deficits. Respiratory: Lungs have equal breath sounds bilaterally, clear to auscultation and percussion. No rales, rhonchi or wheezes noted. No increased work of breathing, no retractions or nasal flaring. Abdomen/GI: Soft, non-tender, with normal bowel sounds. No distension or tympany. No guarding or rebound. No evidence of tenderness throughout. Back: No spinal tenderness. No costovertebral tenderness. Full range of motion. Skin: Warm, dry with normal turgor. Normal color with no rashes, no lesions, and no evidence of cellulitis. MS/ Extremity: Pulses equal, no cyanosis. Neurovascular intact. Full, normal range of motion. Neuro: Awake and alert, GCS 15, oriented to person, place, time, and situation. Cranial nerves II-XII grossly intact. Motor strength 5/5 in all extremities. Sensory grossly intact. Cerebellar exam normal. Normal gait. Psych: Awake, alert, with orientation to person, place and time. Behavior, mood, and affect are within normal limits. Vital Signs: 15:12 BP 109 / 78; Pulse 93; Resp 16 S; Temp 98.5(O); Pulse Ox 97% on R/A; Weight 92.99 kg; ar8 Height 5 ft. 6 in. ; Pain 8/10; 16:00 BP 118 / 74; Pulse 67; Resp 20 S; Pulse Ox 96% on R/A; ar8 15:12 Body Mass Index 33.09 (92.99 kg, 167.64 cm) ar8 15:12 Pain Scale: Adult ar8 Chandler Coma Score: 15:12 Eye Response: to voice(3). Motor Response: obeys commands(6). Verbal Response: ar8 oriented(5). Total: 14. MDM: 15:20 Medical Screening Exam initiated sp3 15:41 Data reviewed: vital signs, nurses notes, old medical records. ED course: 44-year-old sp3 male with breakthrough seizure. Differential diagnosis includes seizure from missed medication versus other intracranial process. I believe this is a simple breakthrough seizure due to missing dosage of medication. Patient has no complaints at the moment. We will load with fosphenytoin and Keppra 1 g each IV and safely discharge patient home.. 03/07 15:37 Order name: IV Saline Lock; Complete Time: 15:44 sp3 Administered Medications: 16:15 Drug: Keppra IV 1000 mg IV at calculated rate once Route: IV; Rate: calculated rate; ph Site: right hand; 16:42 Follow up: Response: No adverse reaction; IV Status: Completed infusion ph 16:46 Follow up: Response: No adverse reaction; IV Status: Completed infusion; IV Intake: ar8 100ml 16:15 Drug: Fosphenytoin IVPB 1 grams IVPB once; (mix in 50 to 100mL NS) Route: IVPB; Site: ph right hand; 16:42 Follow up: Response: No adverse reaction; IV Status: Completed infusion ph 16:46 Follow up: Response: No adverse reaction; IV Status: Completed infusion; IV Intake: ar8 100ml Disposition Summary: 03/07/25 16:09 Discharge Ordered Notes: Location: Home sp3 Condition: Stable sp3 Diagnosis - Breakthrough seizure sp3 Followup: sp3 - With: Private Physician - When: Upon discharge from the Emergency Department - Reason: Recheck today's complaints, Continuance of care Discharge Instructions: - Discharge Summary Sheet sp3 - Seizure, Adult sp3 Forms: - Medication Reconciliation Form sp3 - Antibiotic Education sp3 - Prescription Opioid Use sp3 - Patient Portal Instructions sp3 - Leadership Thank You Letter sp3 Signatures: Henna Caraballo RN RN Alex Bee MD MD sp3 Walter Nagel RN RN ar8
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
[2025-03-07 16:54] VITALS: TEMP 98.5
[2025-03-07 16:56] VITALS: BP 118/74; O2SAT 96
== END 2025-03-07 16:49 | disposition home or self-care (01) ==
LOC: ER 15:12
DX: G40.909 Epilepsy, unspecified, not intractable, without status epilepticus (principal)
CPT/HCPCS: 96365; 96368; 99284; J1953; Q2009

== ENCOUNTER 2025-03-15 16:52 | Emergency (ER) | payer SELFPAY ==
--- NOTE | 2025-03-15 19:08 | RAD REPORT ---
Exam:Wrist Right 3 View HISTORY: Right wrist pain FINDINGS: Bony/calcific density along the volar aspect of the wrist presumably is chronic. No acute fracture or dislocation is seen. If patient continues to have symptoms to suggest an occult fracture or ligamentous injury then MRI wo uld be recommended
--- NOTE | 2025-03-15 19:31 | ER ---
Nurse's Notes [facility] Name: Yonatan Ramos Age: 44 yrs Sex: Male : 1980 Arrival Date: 03/15/2025 Time: 16:52 Bed 20 Private MD: Diagnosis: Pain in right wrist Presentation: 03/15 17:07 Chief complaint: Patient states: had a crush injury to the R wrist on Tuesday while nh2 working on motorcycle, rates pain 10/10, states that it became more swollen and painful today. Coronavirus screen: At this time, the client does not indicate any symptoms associated with coronavirus-19. Ebola Screen: Patient denies travel to an Ebola-affected area in the 21 days before illness onset. No symptoms or risks identified at this time. Initial Sepsis Screen: Does the patient meet any 2 criteria? No. Patient's initial sepsis screen is negative. Does the patient have a suspected source of infection? No. Patient's initial sepsis screen is negative. Risk Assessment: Do you want to hurt yourself or someone else? Patient reports no desire to harm self or others. Onset of symptoms was March 12, 2025. 17:07 Method Of Arrival: Ambulatory nh2 17:07 Acuity: ANDREAS 3 nh2 Triage Assessment: 17:09 General: Appears uncomfortable, Behavior is calm, cooperative, appropriate for age. nh2 Pain: Complains of pain in right wrist Pain radiates to right arm Pain currently is 10 out of 10 on a pain scale. Quality of pain is described as aching, crushing, Pain began 2-3 days ago. Alleviated by repositioning. Historical: - Allergies: 17:09 No Known Allergies; nh2 - PMHx: 17:09 Back pain; Kidney stones; nh2 - PSHx: 17:09 Lithotripsy; nh2 - Immunization history:: Adult Immunizations up to date. - Infectious Disease History:: Denies. - Social history:: Smoking status: Patient/guardian denies using tobacco, the patient reports quitting approximately 15 years ago. Screenin:26 [facility] ED Fall Risk Assessment (Adult) History of falling in the last 3 months, me1 including since admission No falls in past 3 months (0 pts) Confusion or Disorientation No (0 pts) Intoxicated or Sedated No (0 pts) Impaired Gait No (0 pts) Mobility Assist Device Used No (0 pt) Altered Elimination No (0 pt) Score/Fall Risk Level 0 - 2 = Low Risk Maintained a safe environment, Provided non-skid footwear, Hourly rounding (assess needs \T\ fall precautionary measures) done. Abuse screen: Denies threats or abuse. Nutritional screening: No deficits noted. Tuberculosis screening: No symptoms or risk factors identified. Assessment: 17:26 General: Appears uncomfortable, well groomed, well developed, well nourished, Behavior me1 is calm, cooperative, appropriate for age, Reports had a crush injury to the R wrist on Tuesday while working on motorcycle, rates pain 10/10, states that it became more swollen and painful today. Pain: Complains of pain in right arm and right wrist Pain does not radiate. Pain currently is 10 out of 10 on a pain scale. Quality of pain is described as aching, Pain began suddenly, 2-3 days ago. Is continuous. Neuro: Level of Consciousness is awake, alert, obeys commands, Oriented to person, place, time, situation, Appropriate for age. Cardiovascular: Patient's skin is warm and dry. Respiratory: Airway is patent Respiratory effort is even, unlabored, Respiratory pattern is regular, symmetrical. GI: No signs and/or symptoms were reported involving the gastrointestinal system. : No signs and/or symptoms were reported regarding the genitourinary system. EENT: No signs and/or symptoms were reported regarding the EENT system. Derm: Skin is intact, is healthy with good turgor, Skin is normal. Musculoskeletal: Reports pain in right arm and right wrist. Injury Description: Crush injury sustained to right arm and right wrist is bruised, swollen and painful right wrist/forearm was sustained 2 days ago. 20:02 Reassessment: Patient appears in no apparent distress at this time. bm8 20:07 Reassessment: Patient appears in no apparent distress at this time. Patient and/or bm8 family updated on plan of care and expected duration. Pain level reassessed. Patient is alert, oriented x 3, equal unlabored respirations, skin warm/dry/pink. Patient states feeling better. Patient states symptoms have improved. Reassessment: pt was offered pain medication but declined, preformed right wrist splint applied. Pain: Pain currently is 7 out of 10 on a pain scale. Vital Signs: 17:07 BP 105 / 85; Pulse 93; Resp 20; Temp 98.6; Pulse Ox 100% ; Weight 95.25 kg; Height 5 nh2 ft. 6 in. ; 17:10 BP 105 / 85; Pulse 93; Resp 20; Temp 98.6(TE); Pulse Ox 100% on R/A; Weight 95.25 kg; nh2 Height 5 ft. 6 in. ; 20:07 BP 123 / 92; Pulse 67; Resp 17; Temp 98.6; Pulse Ox 97% ; Pain 7/10; bm8 17:10 Body Mass Index 33.89 (95.25 kg, 167.64 cm) nh2 20:07 Pain Scale: Adult bm8 [place] Coma Score: 20:07 Eye Response: spontaneous(4). Motor Response: obeys commands(6). Verbal Response: bm8 oriented(5). Total: 15. ED Course: 16:54 Patient arrived in ED. im 17:03 Triage completed. nh2 17:05 Tray Damian FNP-C is [facility]. dr5 17:06 Bipin Euceda MD is Attending Physician. dr5 17:22 Allison Morrow, NABILA is Primary Nurse. me1 17:26 Patient has correct armband on for positive identification. Bed in low position. Call me1 light in reach. Side rails up X2. Provided Education on: POC. Verbalized understanding.. Client placed on continuous cardiac and pulse oximetry monitoring. NIBP monitoring applied. Pulse ox on. NIBP on. 17:26 No provider procedures requiring assistance completed. me1 18:27 Wrist Right 3 View XRAY In Process Unspecified. EDMS 19:04 Report received from Nabila Cooper. bm8 20:07 Patient did not have IV access during this emergency room visit. bm8 20:09 Arm band placed on right wrist. bm8 Administered Medications: No medications were administered Medication: 17:26 VIS not applicable for this client. me1 Outcome: 19:31 Discharge ordered by . dr5 20:07 Discharged to home ambulatory, bm8 20:07 Condition: stable 20:07 Discharge instructions given to patient, family, Instructed on discharge instructions, follow up and referral plans. no drinking with medication, no driving heavy equipment, medication usage, safety practices, Demonstrated understanding of instructions, follow-up care, medications, Prescriptions given X 2, 20:09 Patient left the ED. bm8 Signatures: Dispatcher [employer] EDTN Lauren Elizondo Michelle RN RN me1 Rito Valdivia RN NABILA bm8 Kaz Ribera Jr, RN RN nh2 Damian, Tray, FONDANT PUFF MAKER-C FONDANT PUFF MAKER-Cdr5 Corrections: (The following items were deleted from the chart) 17: 17:02 Chief complaint: Patient states: had a crush injury to the R wrist while working nh2 on motorcycle on Tuesday nh2 17 17:02 Care prior to arrival: None. nh2 nh2 : 17:02 Mechanism of Injury: Crush injury from motor to motorcycle nh2 [place] : 17:02 Acuity: ANDREAS 3 nh2 [place] : 17:02 Method Of Arrival: Ambulatory [place] [id number] 17: 17:04 Chief complaint: Patient states: had a crush injury to R wrist on Tuesday while nh2 working on motorcycle nh2 17:06 Acuity: ANDREAS 3 nh2 nh2 17: 17:06 Method Of Arrival: Ambulatory nh2 nh2 17: 17:09 PMHx: Chronic pain; nh2 nh2 17: 17:07 Chief complaint: Patient states: had a crush injury to the R wrist on Tuesday me1 while working on motorcycle, rates pain 05/10, states that it became more swollen and painful today nh2
--- NOTE | 2025-03-15 19:31 | EDPHYS ---
Physician Documentation [facility] Name: Yonaatn Ramos Age: 44 yrs Sex: Male : 1980 Arrival Date: 03/15/2025 Time: 16:52 Bed 20 Private MD: ED Physician Bipin Euceda HPI: 03/15 19:19 This 44 yrs old Male presents to ER via Ambulatory with complaints of Crush dr5 Injury To Arm - right. 19:19 The patient or guardian complains of injury. Onset: The symptoms/episode began/occurred dr5 4 day(s) ago. Patient is a 44-year-old male with history of back pain and kidney stones coming in with right wrist pain after getting hit by an engine 4 days ago. Patient reports that pain has worsened with increased pain with movement as well as increased swelling. Patient denies numbness or tingling.. Historical: - Allergies: 17:09 No Known Allergies; nh2 - PMHx: 17:09 Back pain; Kidney stones; nh2 - PSHx: 17:09 Lithotripsy; nh2 - Immunization history:: Adult Immunizations up to date. - Infectious Disease History:: Denies. - Social history:: Smoking status: Patient/guardian denies using tobacco, the patient reports quitting approximately 15 years ago. ROS: 19:19 Constitutional: as per hpi dr5 Exam: 19:19 Constitutional: This is a well developed, well nourished patient who is awake, alert, dr5 and in no acute distress. Head/Face: Normocephalic, atraumatic. Eyes: Pupils equal round and reactive to light, extra-ocular motions intact. Lids and lashes normal. Conjunctiva and sclera are non-icteric and not injected. Cornea within normal limits. Periorbital areas with no swelling, redness, or edema. Neck: Trachea midline, no thyromegaly or masses palpated, and no cervical lymphadenopathy. Supple, full range of motion without nuchal rigidity, or vertebral point tenderness. No Meningismus. Chest/axilla: Normal chest wall appearance and motion. Nontender with no deformity. No lesions are appreciated. Cardiovascular: Regular rate and rhythm with a normal S1 and S2. Normal PMI, no JVD. No pulse deficits. Respiratory: Lungs have equal breath sounds bilaterally, clear to auscultation. No rales, rhonchi or wheezes noted. No increased work of breathing, no retractions or nasal flaring. Abdomen/GI: Soft, non-tender, non-distended Back: No spinal tenderness. No costovertebral tenderness. Full range of motion. Skin: Warm, dry with normal turgor. Normal color with no rashes, no lesions, and no evidence of cellulitis. Neuro: Awake and alert, GCS 15, oriented to person, place, time, and situation. Cranial nerves II-XII grossly intact. Motor strength 5/5 in all extremities. Sensory grossly intact. Cerebellar exam normal. Normal gait. 19:19 Musculoskeletal/extremity: Extremities: noted in the right wrist: pain, swelling, tenderness, ROM: limited active range of motion, in the right wrist, Circulation is intact in all extremities. Sensation intact. Tendon exam: specific tendon testing normal through active and passive range of motion Vital Signs: 17:07 BP 105 / 85; Pulse 93; Resp 20; Temp 98.6; Pulse Ox 100% ; Weight 95.25 kg; Height 5 nh2 ft. 6 in. ; 17:10 BP 105 / 85; Pulse 93; Resp 20; Temp 98.6(TE); Pulse Ox 100% on R/A; Weight 95.25 kg; nh2 Height 5 ft. 6 in. ; 20:07 BP 123 / 92; Pulse 67; Resp 17; Temp 98.6; Pulse Ox 97% ; Pain 7/10; bm8 17:10 Body Mass Index 33.89 (95.25 kg, 167.64 cm) nh2 20:07 Pain Scale: Adult bm8 [place] Coma Score: 20:07 Eye Response: spontaneous(4). Motor Response: obeys commands(6). Verbal Response: bm8 oriented(5). Total: 15. Procedures: 19:22 Splinting: Splint applied to right wrist using wrist splint, applied by nurse. Examined dr5 by me, post splint application: neurovascular intact, 2+ distal pulses palpable, brisk capillary refill noted, Patient tolerated well. MDM: 17:06 Medical Screening Exam initiated dr5 19:19 Differential diagnosis: dislocation, open fracture, closed fracture, contusion, dr5 abrasion, tendonitis. Data reviewed: vital signs, nurses notes, radiologic studies, plain films. Consideration of Admission/Observation Escalation of care including admission/observation considered. Discussion consider patient found to have neurovascular compromise. Independent interpretation of the following test(s) in the Emergency Department X-Ray: My interpretation is Independent interpretation does not reveal acute fracture. Historians other than the Patient: Spouse/Significant Other: Spouse. Care significantly affected by the following chronic conditions: Back pain, kidney stones. Care significantly affected by the following Social Determinants of Health: Poor access to healthcare and/or lack of insurance, Poor access to transportation, Problems related to employment. Counseling: I had a detailed discussion with the patient and/or guardian regarding the historical points, exam findings, and any diagnostic results supporting the discharge/admit diagnosis, the presence of at least one elevated blood pressure reading (>120/80) during this emergency department visit, radiology results, the need for outpatient follow up, for definitive care, a orthopedic surgeon, to return to the emergency department if symptoms worsen or persist or if there are any questions or concerns that arise at home. Response to treatment: the patient's symptoms have markedly improved after treatment. Special discussion: I discussed with the patient/guardian in detail that at this point there is no indication for admission to the hospital. It is understood, however, that if the symptoms persist or worsen the patient needs to return immediately for re-evaluation. Based on the history and exam findings, there is no indication for further emergent testing or inpatient evaluation. I discussed with the patient/guardian the need to see the orthopedic surgeon for further evaluation of the symptoms. ED course: Wrist splint placed in ER for comfort. Recommended patient follow-up with orthopedics. CD given to patient as well as report printed. All question answered. Strict ER precautions given. RICE recommended.. ED course: No acute fracture or dislocation noted on x-ray. 03/15 17:13 Order name: Wrist Right 3 View XRAY; Complete Time: 19:10 dr5 03/15 19:10 Order name: Wrist Splint; Complete Time: 19:53 dr5 Administered Medications: No medications were administered Disposition Summary: 03/15/25 19:31 Discharge Ordered Notes: Location: Home dr5 Condition: Stable dr5 Diagnosis - Pain in right wrist dr5 Followup: dr5 - With: Emergency Department - When: As needed - Reason: Worsening of condition Followup: dr5 - With: Private Physician - When: 1 - 2 days - Reason: Recheck today's complaints, Continuance of care, Re-evaluation by your physician Discharge Instructions: - Discharge Summary Sheet dr5 - Wrist Pain, Adult dr5 - Cast or Splint Care, Pediatric dr5 Forms: - Medication Reconciliation Form dr5 - Patient Portal Instructions dr5 - Leadership Thank You Letter dr5 Prescriptions: - Tramadol 50 mg Oral Tablet - take 1 tablet ORAL route every 8 hours as needed; 12 tablet; Refills: 0, dr5 Product Selection Permitted - Medrol (Dagoberto) 4 mg Oral Tablets, Dose Pack - take 1 tablet ORAL route as directed - follow package instructions; 1 packet; dr5 Refills: 0, Product Selection Permitted Signatures: Dispatcher [employer] Kaz Lujan Jr RN RN nh2 Tray Damian, EXTRUSION ENGINEER-C EXTRUSION ENGINEER-Cdr5 Corrections: (The following items were deleted from the chart) 17:09 17:09 PMHx: Chronic pain; nh2 nh2 19:32 19:31 Nondisplaced fracture of distal phalanx of right ring finger, initial encounter dr5 for closed fracture dr5
[2025-03-15 23:27] VITALS: TEMP 98.6
[2025-03-15 23:39] VITALS: BP 123/92; O2SAT 97
== END 2025-03-15 20:09 | disposition home or self-care (01) ==
LOC: ER 16:52
DX: M25.531 Pain in right wrist (principal)
CPT/HCPCS: 99283